=== PATIENT | female | born 1985 | race African-American/Black ===

== ENCOUNTER 2017-01-01 20:11 | Inpatient (IN) | payer SELFPAY ==
[~2017-01-01] VITALS: Ht 172.7 cm; Wt 185.5 kg
[~2017-01-01 20:11] MED LIST: APPL300T PO; ATOR20TA42 PO; FERR324T4 PO; GARL500C5 PO; LISI20 PO; METO100 PO; NIFE10 PO; SPIR25 PO
[2017-01-01 20:14] VITALS: BP 179/111; PULSE 139; RESP 32; TEMP 98.2; O2SAT 85
[2017-01-01 20:26] VITALS: RESP 28
[2017-01-01] MEDS: RESP: ALBUTEROL 2.5 MG/IPRATROPIUM 0.5 MG NEB (SCH) INH ×2 (20:27→20:28)
[2017-01-01] MEDS ORDERED: methylPREDNISolone SOD SUCC 125 MG/2 ML VIAL IVP ONE (20:30)
--- NOTE | 2017-01-01 20:30 | PD ---
HPI Chief Complaint: Respiratory Distress Time Seen by Provider: 20:30 Travel History International Travel<30 days: No Contact w/Intl Traveler<30days: No Traveled to known affect area: No History of Present Illness HPI 31-year-old female with history of asthma and hypertension presents to the emergency department with acute onset shortness of breath. Patient brought in by her and he states that patient has been out of her asthma inhaler for 2 days. Patient presents in obvious respiratory distress tachypneic and tachycardic. Patient is so tachypneic that she is unable to communicate verbally. Patient's provides a good history. Patient has no surgical history. No history of blood clots. Only cardiac history is hypertension. Patient is not on control and there is no chance of per her . Patient has had asthma attacks that are similar to this severity in the past. Patient has never been intubated for her asthma. There is no recent history of fevers, chills or illness. No recent travels. No leg swelling or pain. Patient reassessed after breathing treatments. Patient is resting comfortably in the bed at this time. She states that she is still short of breath with movement. She is on nasal cannula 2 L. She is denying any chest pain at this time. PFSH Past Medical History Cardiovascular Problems: Yes (CHF) Congestive Heart Failure: Yes Diminished Hearing: No Hypertension: Yes Immunizations Current: Yes Tetanus Vaccination: Unknown Influenza Vaccination: No ?: Unknown Social History Alcohol Use: No Tobacco Use: No Substance Use: No Allergies-Medications (Allergen,Severity, Reaction): Uncoded Allergies: SHELL FISH (Allergy, Mild, 04/22/06) Reported Meds & Prescriptions Reported Meds & Active Scripts Active Procardia (Nifedipine) 10 Mg Cap 10 Mg PO Q8HR Aldactone 25 mg (Spironolactone) 25 Mg Tab 25 Mg PO DAILY 90 Days Metoprolol Tartrate 100 Mg Tab 100 Mg PO Q12HR 90 Days Prinivil 20 mg (Lisinopril) 20 Mg Tab 40 Mg PO Q12HR 90 Days Ferrous Sulfate 325 Mg Tab 325 Mg PO BID@, Lipitor 20 Mg Tab (Atorvastatin) 20 Mg Tab 20 Mg PO DAILY Reported Apple Cider Vinegar 300 Mg Tab 450 Mg PO DAILY Garlic 500 Mg Cap 1,000 Mg PO DAILY Review of Systems Except as stated in HPI: all other systems reviewed are Neg Physical Exam Exam Limitations: Clinical Condition Narrative GENERAL: 31-year-old well-developed well-nourished obese female in obvious respiratory distress. Tachypneic and tachycardic. SKIN: Focused skin assessment cool and diaphoretic. HEAD: Atraumatic. Normocephalic. EYES: Pupils equal and round. No scleral icterus. No injection or drainage. ENT: No nasal bleeding or discharge. Mucous membranes pink and moist. NECK: Trachea midline. No JVD. CARDIOVASCULAR: Tachycardic. Regular rate and rhythm. No murmur appreciated. RESPIRATORY: Breath sounds equal bilaterally but extremely diminished at the bases. Tachypneic and accessory muscle use noted. GASTROINTESTINAL: Abdomen round, soft, non-tender, nondistended. Hepatic and splenic margins not palpable. MUSCULOSKELETAL: No obvious deformities. No clubbing. No cyanosis. No edema. NEUROLOGICAL: Awake and alert. No obvious cranial nerve deficits. Motor grossly within normal limits. Data Data Last Documented VS Vital Signs Date Time Temp Pulse Resp B/P (MAP) Pulse Ox O2 Delivery O2 Flow Rate FiO2 01/01/17 20:26 99 Aerosol Mask 01/01/17 20:26 28 01/01/17 20:14 98.2 139 Orders Orders Electrocardiogram (01/01/17 20:17) Chest, Single Ap (01/01/17 20:17) Ecg Monitoring (01/01/17 20:17) Iv Access Insert/Monitor (01/01/17 20:17) Oximetry (01/01/17 20:17) Oxygen Administration (01/01/17 20:17) Methylprednisolone So Succ Inj (Solumedr (01/01/17 20:30) Albuterol-Ipratropium Neb (Duoneb Neb) (01/01/17 20:30) Complete Blood Count With Diff (01/01/17 20:27) Basic Metabolic Panel (Bmp) (01/01/17 20:27) D-Dimer (01/01/17 20:27) Act Partial Throm Time (Ptt) (01/01/17 20:27) Prothrombin Time / Inr (Pt) (01/01/17 20:27) Ckmb (Isoenzyme) Profile (01/01/17 20:27) Troponin I (01/01/17 20:27) Urinalysis - C+S If Indicated (01/01/17 20:27) B-Type Natriuretic Peptide (01/01/17 21:31) Ct Pulmonary Angiogram (01/01/17 21:33) Potassium Chloride Eff (K-Lyte Cl Eff) (01/01/17 21:45) CKMB (01/01/17 20:30) CKMB% (01/01/17 20:30) Heparin Inj (Heparin Inj) (01/01/17 22:15) Heparin Inj (Heparin Inj) (01/02/17 04:15) Heparin Inj (Heparin Inj) (01/02/17 04:15) Heparin-D5w 25,000 U/250 Ml (Heparin-D5w (01/01/17 22:15) Cbc No Diff, Includes Plts (01/04/17 06:00) Act Partial Throm Time (Ptt) (01/02/17 05:15) Occult Blood (Hemoccult) Stool (01/01/17 22:15) Aspirin (Aspirin) (01/01/17 22:15) Labs Laboratory Tests Test 01/01/17 20:30 01/01/17 21:56 White Blood Count 11.9 TH/MM3 Red Blood Count 4.35 MIL/MM3 Hemoglobin 10.1 GM/DL Hematocrit 32.8 % Mean Corpuscular Volume 75.5 FL Mean Corpuscular Hemoglobin 23.2 PG Mean Corpuscular Hemoglobin Concent 30.8 % Red Cell Distribution Width 21.0 % Platelet Count 343 TH/MM3 Mean Platelet Volume 8.3 FL Neutrophils (%) (Auto) 76.0 % Lymphocytes (%) (Auto) 18.5 % Monocytes (%) (Auto) 3.0 % Eosinophils (%) (Auto) 1.3 % Basophils (%) (Auto) 1.2 % Neutrophils # (Auto) 9.0 TH/MM3 Lymphocytes # (Auto) 2.2 TH/MM3 Monocytes # (Auto) 0.4 TH/MM3 Eosinophils # (Auto) 0.1 TH/MM3 Basophils # (Auto) 0.1 TH/MM3 CBC Comment DIFF FINAL Differential Comment Prothrombin Time 11.7 SEC Prothromb Time International Ratio 1.1 RATIO Activated Partial Thromboplast Time 21.7 SEC D-Dimer Quantitative (PE/DVT) 3.07 MG/L FEU Blood Urea Nitrogen 16 MG/DL Creatinine 1.71 MG/DL Random Glucose 145 MG/DL Calcium Level 8.5 MG/DL Sodium Level 138 MEQ/L Potassium Level 2.8 MEQ/L Chloride Level 100 MEQ/L Carbon Dioxide Level 25.7 MEQ/L Anion Gap 12 MEQ/L Estimat Glomerular Filtration Rate 43 ML/MIN Total Creatine Kinase 319 U/L Creatine Kinase MB 1.7 NG/ML Creatine Kinase MB % 0.5 % Troponin I 0.66 NG/ML B-Type Natriuretic Peptide 575 PG/ML Urine Color LIGHT-YELLOW Urine Turbidity CLEAR Urine pH 7.0 Urine Specific Many 1.004 Urine Protein TRACE mg/dL Urine Glucose (UA) NEG mg/dL Urine Ketones NEG mg/dL Urine Occult Blood NEG Urine Nitrite NEG Urine Bilirubin NEG Urine Urobilinogen LESS THAN 2.0 MG/DL Urine Leukocyte Esterase MOD Urine WBC 2 /hpf Urine Squamous Epithelial Cells 1 /hpf Microscopic Urinalysis Comment CULT NOT INDICATED MDM Medical Decision Making Medical Screen Exam Complete: Yes Emergency Medical Condition: Yes Medical Record Reviewed: Yes Differential Diagnosis Asthma exacerbation, pulmonary embolism, ACS, COPD, pneumonia Narrative Course 31-year-old obese female presents to the emergency department in obvious respiratory distress. She is both tachypneic and tachycardic. She is unable to communicate verbally at this time due to her tachypnea. Patient's at bedside presents a good history. She has a history of asthma and hypertension. She has been out of her asthma inhaler for 2 days. The shortness of breath started earlier today and worsened throughout the day. Patient's states that she has had asthma attacks in the past that are similar in severity. She has never been intubated for her asthma. There is no recent history of travel. No recent history of fever, chills or illness. Patient is not on control and per there is no chance of . There is no leg pain or swelling. After reviewing previous provider 's documentation and other visits it is noted that the patient also has a history of congestive heart failure. EKG, CBC, BMP, d-dimer, PT INR, BNP, troponin, CK, chest x-ray ordered and pending. 125 mg IV Solu-Medrol and DuoNeb 3 ordered. EKG shows sinus tachycardia heart rate 113, CBC leukocytosis at 11.9 and hemoglobin low at 10.1, BMP shows critically low potassium at 2.8 and slightly impaired renal function but otherwise no acute abnormalities, D-DIMER elevated at 3.07, PT/INR INR within normal limits only when PT and APTT slightly elevated , TROP elevated at 0.66, CK elevated at 319, BNP elevated at 575, CXR shows mild congestive heart failure 50 mg mEq potassium chloride PO ordered after potassium resulted. CT pulmonary angiogram ordered after d-dimer resulted. Patient reassessed after breathing treatments. Patient is resting comfortably in bed. Patient states she is still short of breath with movement. She is on 2 L nasal cannula O2. Patient is denying any chest pain. [facility] paged for admission. Dr. Simpson accepted admission. Dr. Canales [employer] [facility] on-call was called and consulted regarding care of this patient. Diagnosis Primary Impression: NSTEMI (non-ST elevated myocardial infarction) Additional Impressions: Hypokalemia Elevated troponin Asthma exacerbation Admitting Information Admitting Physician Requests: Admit Adrianne Shin Jan 01, 2017 20:30
[2017-01-01 20:53] LABS: BASOPHIL # 0.1 TH/MM3 (0-0.2); BASOPHIL % 1.2 % (0.0-2.0); EOSINOPHIL # 0.1 TH/MM3 (0-0.4); EOSINOPHIL % 1.3 % (0.0-4.0); HEMATOCRIT 32.8 % (35.0-46.0); HEMO FLAGS DIFF FINAL; LYMPH % 18.5 % (9.0-44.0); LYMPHOCYTE # 2.2 TH/MM3 (1.0-4.8); MEAN CELL VOLUME 75.5 FL (80.0-100.0); MEAN CORPUSCULAR HEMOGLOBIN 23.2 PG (27.0-34.0); MEAN CORPUSCULAR HGB CONC 30.8 % (32.0-36.0); PLATELET COUNT 343 TH/MM3 (150-450); RED BLOOD COUNT 4.35 MIL/MM3 (4.00-5.30); WHITE BLOOD COUNT 11.9 TH/MM3 (4.0-11.0)
[2017-01-01 21:17] LABS: APTT (PATIENT) 21.7 SEC (24.3-30.1); INTERNATIONAL NORMALIZED RATIO 1.1 RATIO; PROTHROMBIN TIME - PATIENT 11.7 SEC (9.8-11.6)
--- NOTE | 2017-01-01 21:21 | RADRPT ---
EXAM DATE/TIME: 01/01/2017 20:48 [facility] COMPARISON: CHEST SINGLE AP, January 20, 2016, 19:02. INDICATIONS : Shortness of breath. MEDICAL HISTORY : Hypertension. Congestive heart failure. Cardiomyopathy. SURGICAL HISTORY : None. ENCOUNTER: Initial ACUITY: 4 - 6 days PAIN SCORE: 0/10 LOCATION: Bilateral chest FINDINGS: There is cardiomegaly with mild edema pattern, basilar atelectasis and small effusions. No pneumothor ax. CONCLUSION: 1. Mild congestive heart failure. Byron Canales MD on January 01, 2017 at 21:19 Board Certified Radiologist. This report was verified electronically.
[2017-01-01 21:36] LABS: BICARBONATE 25.7 MEQ/L (21.0-32.0)
[2017-01-01 21:38] LABS: POTASSIUM 2.8 MEQ/L (3.5-5.1)
[2017-01-01] MEDS ORDERED: POTASSIUM CHLORIDE 25 MEQ EFFERVESCENT TAB PO ONE (21:45)
[2017-01-01 22:04] LABS: BLOOD, URINE NEG (NEG); COMMENT (UR) CULT NOT INDICATED; CULTURE IF INDICATED CULT NOT INDICATED; GLUCOSE,URINE NEG (NEG); KETONE, URINE NEG (NEG); NITRITE,URINE NEG (NEG); SQUAMOUS EPITHELIAL CELL URINE 1 /hpf (0-5); URINE COLOR LIGHT-YELLOW (YELLW/STRAW)
[2017-01-01] MEDS ORDERED: HEPARIN SODIUM - IV 10,000 UNITS/10 ML VIAL IV ONE (22:15)
[2017-01-01] MEDS ORDERED: HEPARIN-D5W 25,000 U/250 ML 250 ML IV PRN (22:15)
[2017-01-01] MEDS ORDERED: ASPIRIN 325 MG TAB PO ONE (22:15)
[2017-01-01 22:35] LABS: CKMB 1.7 NG/ML (0.5-3.6)
--- NOTE | 2017-01-01 23:14 | HHI.HP ---
[facility] No Primary Care Physician Admission Diagnosis NSTEMI/ASTHMA EXACERBATION Diagnoses: (1) NSTEMI (non-ST elevated myocardial infarction) Diagnosis: Principal (2) CHF (congestive heart failure) Diagnosis: Principal (3) Asthma Diagnosis: Principal (4) Hypoxia Diagnosis: Principal (5) HTN (hypertension) Diagnosis: Principal (6) Hypokalemia Diagnosis: Principal (7) YOLY (acute kidney injury) Diagnosis: Principal Travel History International Travel<30 Days: No Contact w/Intl Traveler <30 Da: No Traveled to Known Affected Are: No History of Present Illness This is a 31-year-old female with a PMH of HTN, CHF (Echo 01/21/16 w/ EF 40-45%) and Asthma who presented to the ER secondary to SOB. On arrival, pt in significant distress. reports pt off inhaler x2-3 days due to financial reasons. Denies fever, chills or cough. On arrival, BP 179/111, HR 139, O2 sat 85% on RA, Afebrile. WBC 11.9. K+ 2.8. Creatinine 1.71, previously 1.32 on 01/24/16. Trop 0.66. BNP 575. CPK 319. U/a negative. D- dimer 3.07. CXR w/ mild CHF. CTA Pulm negative for PE, bilateral pulmonary infiltrates likely pulmonary edema/CHF. Review of Systems Except as stated in HPI: all other systems reviewed are Neg ROS: 14 point review of systems otherwise negative. Past Family Social History Past Medical History PMH: HTN, CHF (Echo 01/21/16 w/ EF 40-45%) and Asthma Past Surgical History PAST SURGICAL HISTORY: None Allergies: Uncoded Allergies: SHELL FISH (Allergy, Mild, 04/22/06) Family History PAST FAMILY HISTORY: Reviewed. No h/o DM or CAD Social History PAST SOCIAL HISTORY: Negative for alcohol, tobacco or drugs. Physical Exam Vital Signs Vital Signs Date Time Temp Pulse Resp B/P (MAP) Pulse Ox O2 Delivery O2 Flow Rate FiO2 01/01/17 20:26 99 Aerosol Mask 01/01/17 20:26 28 01/01/17 20:14 98.2 139 32 179/111 (089) 85 Physical Exam PE: GENERAL: Young obese black female in no acute distress. HEENT: PERRLA, EOMI. No scleral icterus or conjunctival pallor. No lid lag or facial droop. CARDIOVASCULAR: Regular rate and rhythm. No obvious murmurs to auscultation. No chest tenderness to palpation. RESPIRATORY: No obvious rhonchi or wheezing. Clear to auscultation. Breath sounds mildly diminished at bases bilaterally. GASTROINTESTINAL: Abdomen soft, non-tender, nondistended. BS normal. MUSCULOSKELETAL: Extremities without clubbing, cyanosis, or edema. No obvious deformities. NEUROLOGICAL: Awake, alert and oriented x4. No focal neurologic deficits. Moving both upper and lower extremities spontaneously. Laboratory Laboratory Tests Test 01/01/17 20:30 01/01/17 21:56 White Blood Count 11.9 Red Blood Count 4.35 Hemoglobin 10.1 Hematocrit 32.8 Mean Corpuscular Volume 75.5 Mean Corpuscular Hemoglobin 23.2 Mean Corpuscular Hemoglobin Concent 30.8 Red Cell Distribution Width 21.0 Platelet Count 343 Mean Platelet Volume 8.3 Neutrophils (%) (Auto) 76.0 Lymphocytes (%) (Auto) 18.5 Monocytes (%) (Auto) 3.0 Eosinophils (%) (Auto) 1.3 Basophils (%) (Auto) 1.2 Neutrophils # (Auto) 9.0 Lymphocytes # (Auto) 2.2 Monocytes # (Auto) 0.4 Eosinophils # (Auto) 0.1 Basophils # (Auto) 0.1 CBC Comment DIFF FINAL Differential Comment Prothrombin Time 11.7 Prothromb Time International Ratio 1.1 Activated Partial Thromboplast Time 21.7 D-Dimer Quantitative (PE/DVT) 3.07 Blood Urea Nitrogen 16 Creatinine 1.71 Random Glucose 145 Calcium Level 8.5 Sodium Level 138 Potassium Level 2.8 Chloride Level 100 Carbon Dioxide Level 25.7 Anion Gap 12 Estimat Glomerular Filtration Rate 43 Total Creatine Kinase 319 Creatine Kinase MB 1.7 Creatine Kinase MB % 0.5 Troponin I 0.66 B-Type Natriuretic Peptide 575 Urine Color LIGHT-YELLOW Urine Turbidity CLEAR Urine pH 7.0 Urine Specific Kelly 1.004 Urine Protein TRACE Urine Glucose (UA) NEG Urine Ketones NEG Urine Occult Blood NEG Urine Nitrite NEG Urine Bilirubin NEG Urine Urobilinogen LESS THAN 2.0 Urine Leukocyte Esterase MOD Urine WBC 2 Urine Squamous Epithelial Cells 1 Microscopic Urinalysis Comment CULT NOT INDICATED Result Diagram: 01/01/17202901/01/172029 Caprinjeanette VTE Risk Assessment Caprini VTE Risk Assessment: Mod/High Risk (score >= 2) Caprini Risk Assessment Model Point Value = 1 Point Value = 2 Point Value = 3 Point Value = 5 Age 41-60 Minor surgery BMI > 25 kg/m2 Swollen legs Varicose veins or History of unexplained or recurrent spontaneous Oral contraceptives or hormone replacement Sepsis (< 1 month) Serious lung disease, including pneumonia (< 1 month) Abnormal pulmonary function Acute myocardial infarction Congestive heart failure (< 1 month) History of inflammatory bowel disease Medical patient at bed rest Age 61-74 Arthroscopic surgery Major open surgery (> 45 min) Laparoscopic surgery (> 45 min) Malignancy Confined to bed (> 72 hours) Immobilizing plaster cast Central venous access Age >= 75 History of VTE Family history of VTE Factor V Leiden Prothrombin [id number] Lupus anticoagulant Anticardiolipin antibodies Elevated serum homocysteine Heparin-induced thrombocytopenia Other congenital or acquired thrombophilia Stroke (< 1 month) Elective arthroplasty Hip, pelvis, or leg fracture Acute spinal cord injury (< 1 month) Prophylaxis Regimen Total Risk Factor Score Risk Level Prophylaxis Regimen 0-1 Low Early ambulation 2 Moderate Order ONE of the following: *Sequential Compression Device (SCD) *Heparin 5000 units SQ BID 3-4 Higher Order ONE of the following medications: *Heparin 5000 units SQ TID *Enoxaparin/Lovenox 40 mg SQ daily (WT < 150 kg, CrCl > 30 mL/min) *Enoxaparin/Lovenox 30 mg SQ daily (WT < 150 kg, CrCl > 10-29 mL/min) *Enoxaparin/Lovenox 30 mg SQ BID (WT < 150 kg, CrCl > 30 mL/min) AND/OR *Sequential Compression Device (SCD) 5 or more Highest Order ONE of the following medications: *Heparin 5000 units SQ TID (Preferred with Epidurals) *Enoxaparin/Lovenox 40 mg SQ daily (WT < 150 kg, CrCl > 30 mL/min) *Enoxaparin/Lovenox 30 mg SQ daily (WT < 150 kg, CrCl > 10-29 mL/min) *Enoxaparin/Lovenox 30 mg SQ BID (WT < 150 kg, CrCl > 30 mL/min) AND *Sequential Compression Device (SCD) Assessment and Plan Problem List: (1) NSTEMI (non-ST elevated myocardial infarction) ICD Code: I21.4 - Non-ST elevation (NSTEMI) myocardial infarction Status: Acute (2) CHF (congestive heart failure) ICD Code: I50.9 - Heart failure, unspecified (3) HTN (hypertension) ICD Code: I10 - Essential (primary) hypertension (4) Hypoxia ICD Code: R09.02 - Hypoxemia (5) Asthma ICD Code: J45.909 - Unspecified asthma, uncomplicated (6) YOLY (acute kidney injury) ICD Code: N17.9 - Acute kidney failure, unspecified Status: Acute (7) Hypokalemia ICD Code: E87.6 - Hypokalemia Status: Acute Assessment and Plan A/P: 1. NSTEMI: Trop 0.66, EKG w/ no acute ischemia, h/o NSTEMI on previous admit . Dr. Canales consulted by ER physician, will eval in am. On Heparin gtt, s/ p ASA. Continue Heparin, ASA, Metoprolol and Statin. Check serial cardiac enzymes. 2. CHF: Acute on Chronic. Systolic. Echo 01/21/16 w/ EF 40-45%, BNP 575. CXR w/ mild CHF. CTA Pulm negative for PE, bilateral pulmonary infiltrates likely pulmonary edema, images reviewed by me. Lasix 40mg IV, resume home diuresis, monitor I/O. 3. Asthma: w/ Acute Exacerbation. Severe. Significant respiratory distress on arrival w/ hypoxia, O2 88% on RA, now improved after Solu-Medrol and DuoNeb. Continue w/ Solu-Medrol, Albuterol, Symbicort. 4. Hypoxia: Multifactorial-secondary to Acute Asthma, CHF and NSTEMI, now resolved. Monitor O2. 5. YOLY: Acute on Chronic. Creatinine 1.71, previously 1.32 on 01/24/16. U/a negative. Caution w/ diuresis, repeat labs in am. 6. Hypokalemia: K+ 2.8, s/p replacement in ER, will recheck and replace as needed. 7. DVT Prophylaxis: On Heparin gtt 8. Social work for d/c planning as needed. 9. Case discussed w/ ER physician at length. Physician Certification 2 Midnight Certification Type: Admission for Inpatient Services Order for Inpatient Services The services are ordered in accordance with Medicare regulations or non- Medicare payer requirements, as applicable. In the case of services not specified as inpatient-only, they are appropriately provided as inpatient services in accordance with the 2-midnight benchmark. Estimated LOS (days): 2 days is the estimated time the patient will need to remain in the hospital, assuming treatment plan goals are met and no additional complications. Post-Hospital Plan: Not yet determined Jayde Simpson MD Jan 01, 2017 23:13
[2017-01-01] MEDS ORDERED: ACETAMINOPHEN/HYDROcodone 325 MG/5 MG TAB PO PRN (23:15)
[2017-01-01] MEDS ORDERED: BISACODYL 10 MG SUPP RECTAL PRN (23:15)
[2017-01-01] MEDS ORDERED: MAGNESIUM HYDROXIDE SUSP 30 ML CUP PO PRN (23:15)
[2017-01-01] MEDS ORDERED: SODIUM CHLORIDE 0.9% FLUSH 10 ML FLUSH IV FLUSH PRN (23:15)
[2017-01-01] MEDS ORDERED: ONDANSETRON HCL 4 MG/2 ML VIAL IVP PRN (23:15)
[2017-01-01] MEDS ORDERED: MORPHINE SULFATE 4 MG/ML INJ IV PRN (23:15)
[2017-01-01] MEDS ORDERED: RESP: ALBUTEROL 2.5 MG/3 ML NEB (PRN) NEB (23:15)
[2017-01-01] MEDS ORDERED: SENNOSIDES 8.6 MG TAB PO PRN (23:15)
[2017-01-01] MEDS ORDERED: NITROGLYCERIN 2% OINT 1 GM PACKET TOPICAL PRN (23:15)
[2017-01-01] MEDS ORDERED: ACETAMINOPHEN 325 MG TAB PO PRN (23:15)
[2017-01-01] MEDS ORDERED: IOHEXOL 350 MG/ML 10 ML VIAL (for RAD DIAG) IVCONTRAST ONE (23:15)
[2017-01-01] MEDS ORDERED: LACTULOSE SYRUP 20 GM/30 ML CUP PO PRN (23:15)
--- NOTE | 2017-01-01 23:27 | RADRPT ---
EXAM DATE/TIME: 01/01/2017 22:52 [facility] COMPARISON: No previous studies available for comparison. INDICATIONS : Shortness of breath for 3 days. IV CONTRAST: 75 cc Omnipaque 350 (iohexol) IV RADIATION DOSE: 25.9 CTDIvol (mGy) MEDICAL HISTORY : Cardiovascular disease. Hypertension. Congestive heart failure. SURGICAL HISTORY : None. ENCOUNTER: Initial ACUITY: 3 days PAIN SCALE: 0/10 LOCATION: chest TECHNIQUE: Volumetric scanning of the chest was performed using a pulmonary embolism protocol MIP images were re constructed. Using automated exposure control and adjustment of the mA and/or kV according to patien t size, radiation dose was kept as low as reasonably achievable to obtain optimal diagnostic quality images. DICOM format image data is available electronically for review and comparison. Follow-up recommendations for detected pulmonary nodules are based at a minimum on nodule size and pa tient risk factors according to Fleischner Society Guidelines. FINDINGS: There is no pulmonary embolus. Left ventricular enlargement noted. No coronary artery calcification s een. Diffuse groundglass and patchy alveolar infiltrates seen of both lungs. There is a small to moderate pleural effusion on the right. There are scattered mediastinal lymph nodes that measure up to 22 mm in greatest short axis dimension . CONCLUSION: 1. No pulmonary embolus. 2. Left ventricular enlargement. 3. Bilateral pulmonary infiltrates, nonspecific but a component of pulmonary edema/CHF possible in th e proper clinical setting. 4. Nonspecific mildly enlarged mediastinal lymph nodes. Paul Hsu MD on January 01, 2017 at 23:20 Board Certified Radiologist. This report was verified electronically.
[2017-01-01] MEDS ORDERED: METO50TA PO (23:28)
[2017-01-01] MEDS ORDERED: PRIN20TA2 PO (23:28)
[2017-01-01 23:37] VITALS: BP 205/99; PULSE 91; RESP 24; O2SAT 95
[2017-01-01] MEDS: methylPREDNISolone SOD SUCC 40 MG/1 ML VIAL IV PUSH SCH (23:37)
[2017-01-01] MEDS: METOPROLOL TARTRATE 50 MG TAB PO SCH (23:37)
[2017-01-01] MEDS ORDERED: FUROSEMIDE 40 MG/4 ML VIAL IV PUSH ONE (23:45)
[2017-01-02] VITALS (18 sets, daily range): BP systolic 152–204; BP diastolic 76–110; PULSE 59–97; RESP 18–22; TEMP 97.3–99.4; O2SAT 94–97
[2017-01-02] MEDS ORDERED: hydrALAZINE HCL 20 MG/ML VIAL IV PUSH ONE ×2 (00:30→02:00)
[2017-01-02] MEDS ORDERED: METOPROLOL TARTRATE 50 MG TAB PO ONE (02:00)
[2017-01-02] MEDS ORDERED: HEPARIN SODIUM - IV 10,000 UNITS/10 ML VIAL IV PRN ×2 (04:15)
[2017-01-02] MEDS ORDERED: cloNIDine HCL 0.2 MG TAB PO ONE (04:45)
[2017-01-02] MEDS ORDERED: NIFEdipine 30 MG SUSTAINED RELEASE TAB PO ONE (04:45)
[2017-01-02] MEDS ORDERED: SODIUM CHLORIDE 0.9% FLUSH 10 ML FLUSH IV FLUSH PRN (05:30)
[2017-01-02] MEDS: methylPREDNISolone SOD SUCC 40 MG/1 ML VIAL IV PUSH SCH ×3 (05:45→13:41)
[2017-01-02] MEDS: NIFEdipine 10 MG CAP PO SCH ×2 (05:45→13:40)
--- NOTE | 2017-01-02 08:40 | HHI.PR ---
Subjective Remarks Follow up NSTEMI, asthma exacerbation. The patient states that she feels much better today. Denies chest pain or dyspnea. She is off supplemental oxygen. Objective Vitals Vital Signs Date Time Temp Pulse Resp B/P (MAP) Pulse Ox O2 Delivery O2 Flow Rate FiO2 01/02/17 08:00 97 01/02/17 07:00 78 01/02/17 07:00 97.4 78 18 152/79 (103) 96 01/02/17 06:00 77 01/02/17 05:00 76 01/02/17 04:00 76 01/02/17 03:00 99.1 78 20 204/110 (141) 95 01/02/17 03:00 81 01/02/17 02:00 80 01/02/17 01:20 99.4 86 22 193/109 (137) 97 01/02/17 00:50 95 Nasal Cannula 2.00 01/02/17 00:27 01/01/17 23:37 91 24 205/99 (134) 95 Nasal Cannula 2.00 01/01/17 20:26 99 Aerosol Mask 01/01/17 20:26 28 01/01/17 20:14 98.2 139 32 179/111 (133) 85 Result Diagram: 01/01/17202901/01/1720[address] Angiography 01/01/172132 Signed Impressions: Service Date/Time: Sunday, January 01, 2017 22:52 - CONCLUSION: 1. No pulmonary embolus. 2. Left ventricular enlargement. 3. Bilateral pulmonary infiltrates, nonspecific but a component of pulmonary edema/CHF possible in the proper clinical setting. 4. Nonspecific mildly enlarged mediastinal lymph nodes. Paul Hsu MD Chest X-Ray 01/01/172016 Signed Impressions: Service Date/Time: Sunday, January 01, 2017 20:48 - CONCLUSION: 1. Mild congestive heart failure. Byron Canales MD Objective Remarks General: Obese female in no acute distress. Heart: Regular rate and rhythm. No murmur. Lungs: Clear to auscultation bilaterally. No wheezes, rales, or rhonchi. Breathing is nonlabored. Abdomen: Soft, nontender, nondistended. Extremities: No lower extremity edema. Psych: Alert and oriented. Procedures None Urinary Catheter: No Vascular Central Line Catheter: No A/P Problem List: (1) NSTEMI (non-ST elevated myocardial infarction) ICD Code: I21.4 - Non-ST elevation (NSTEMI) myocardial infarction Status: Acute (2) CHF (congestive heart failure) ICD Code: I50.9 - Heart failure, unspecified (3) HTN (hypertension) ICD Code: I10 - Essential (primary) hypertension (4) Hypoxia ICD Code: R09.02 - Hypoxemia (5) Asthma ICD Code: J45.909 - Unspecified asthma, uncomplicated (6) YOLY (acute kidney injury) ICD Code: N17.9 - Acute kidney failure, unspecified Status: Acute (7) Hypokalemia ICD Code: E87.6 - Hypokalemia Status: Acute Assessment and Plan 1. Non-ST elevation MT: Troponin elevated at 0.66, trended down to 0.54. EKG does not show acute ischemia. Patient denies chest pain currently. Cardiology consultation is pending. Patient is on heparin drip and received aspirin. Continue beta obinna, statin. 2. Acute on chronic systolic congestive heart failure: Echocardiogram from December 2015 showed ejection fraction 40-45%. Imaging shows likely pulmonary edema. Continue diuresis. Monitor intake/output. 3. Dyspnea: Likely secondary to asthma exacerbation. CTA is negative for pulmonary embolus. Continue bronchodilators, supplemental oxygen as needed. 4. Hypertension: Blood pressure has been significantly elevated. Continue metoprolol, Procardia. Add hydralazine. 5. Acute kidney injury: Repeat labs are pending this morning. 6. Hypokalemia: Received replacement in the ER. Repeat labs are pending this morning. 7. DVT prophylaxis: Heparin drip. Rufino Rios MD Jan 02, 2017 08:40
[2017-01-02] MEDS ORDERED: PNEUMOCOCCAL POLYVALENT INJ 25 MCG/0.5 ML SYR IM ONE (09:00)
[2017-01-02] MEDS ORDERED: SPIRONOLACTONE 25 MG TAB PO SCH (09:00)
[2017-01-02] MEDS: BUDESONIDE-FORMOTEROL 160/4.5 MCG INHALER INH SCH ×2 (09:00→09:33)
[2017-01-02] MEDS ORDERED: DOCUSATE SODIUM 50 MG/SENNA 8.6 MG TAB PO SCH (09:00)
[2017-01-02] MEDS ORDERED: PRAVASTATIN SOD 40 MG TAB PO SCH (09:00)
[2017-01-02] MEDS ORDERED: ASPIRIN EC 81 MG TABEC PO SCH (09:00)
[2017-01-02] MEDS ORDERED: METOPROLOL TARTRATE 100 MG TAB PO SCH (09:00)
[2017-01-02] MEDS ORDERED: SODIUM CHLORIDE 0.9% FLUSH 10 ML FLUSH IV FLUSH SCH (09:00)
[2017-01-02] MEDS: METOPROLOL TARTRATE 50 MG TAB PO SCH (09:32)
[2017-01-02] MEDS: hydrALAZINE HCL 10 MG TAB PO SCH ×2 (09:36→13:40)
[2017-01-02] MEDS ORDERED: cloNIDine HCL 0.2 MG TAB PO PRN (11:00)
--- NOTE | 2017-01-02 11:38 | MB ---
cc: EMMANUEL SALDANA MD DATE OF CONSULTATION: 01/02/2017. REASON FOR CONSULTATION: Elevated troponin. HISTORY OF PRESENT ILLNESS: The patient is a pleasant morbidly obese 31-year-old woman who has a history of asthma and hypertensive cardiomyopathy who underwent a nuclear stress test last year for similar presentation, which was nonischemic. The patient presents with what she describes as an asthma exacerbation. She admits to not taking her medication for at least the last week due to general noncompliance but she says she did have her medication with her. Her blood pressures on admission were as high as 205/99 but have come down to generally 150 systolic. Currently she is asymptomatic and hoping to be discharged home. She has no chest pain, residual shortness breath, lightheadedness or dizziness. PAST MEDICAL HISTORY: 1. Morbid obesity. 2. Asthma. 3. Hypertensive cardiomyopathy with an ejection fraction of 40-45% by echo 01/21/2016. ALLERGIES: SHELLFISH. CURRENT MEDICATIONS: 1. Aspirin 81 milligrams daily. 2. Pravachol 40 milligrams daily. 3. Aldactone 25 milligrams daily. 4. Apresoline 10 milligrams q. 8 hours. 5. Procardia 10 milligrams q.8 h. 6. Solu-Medrol. 7. Symbicort. 8. Heparin drip. PHYSICAL EXAMINATION: VITAL SIGNS: Temperature 99.4, pulse 80, respiratory rate 22, blood pressure 152/79, satting 96%. GENERAL: A pleasant well-appearing morbidly obese -B[place] woman in no distress. NECK: No jugular venous distention. LUNGS: Clear to auscultation bilaterally. CARDIOVASCULAR: Regular rate and rhythm. No murmurs appreciated. ABDOMEN: Benign. EXTREMITIES: No edema. LABORATORY DATA: Sodium 138, potassium 2.8, chloride 100, bicarbonate 25.7, BUN 16, creatinine 1.71, glucose 145. CK-MBs are normal with slightly elevated total CK. Troponin 0.667 and 0.56. BNP is slightly elevated at 575. EKGS: EKG shows sinus tachycardia with left ventricular hypertrophy type S-T changes. IMAGING STUDIES: CTA of the chest showed no pulmonary embolism. Possible mild congestive heart failure. (The patient has already received IV Lasix). IMPRESSION: 1. Elevated troponin: The patient's mildly elevated troponin is similar to her presentation last year with another asthma exacerbation at which time she underwent an ischemic workup with nuclear stress test which showed no ischemia with the obvious limitations of body habitus. The patient is now completely asymptomatic without any shortness of breath and her blood pressures are improving. Her presentation is not consistent with acute coronary syndrome but more of an acute on chronic diastolic and systolic congestive heart failure caused by her not being on medications for the last week. 2. Noncompliance: I discussed her noncompliance at length and advised her that she will have significant morbidity and even mortality if she does not take her medications. I also counselled weight loss at great length and recommended bariatric surgery although the patient seems reluctant to do this and "wants to do it on my own". From my standpoint, if her blood pressure is reasonable and her potassium improves on her next set of labs, she could go home from a cardiac standpoint. I will be available on an as-needed basis from here. Please call with any questions. Thank you again for the opportunity to participate in this patient's care. MD KRISTEL Douglas/BALDEMAR /10:16 AM /11:25 AM
[2017-01-02 13:37] LABS: AUTOMATED NEUTROPHIL # 13.3 TH/MM3 (1.8-7.7); HEMATOCRIT 30.8 % (35.0-46.0); HEMO FLAGS DIFF FINAL; LYMPH % 6.2 % (9.0-44.0); LYMPHOCYTE # 0.9 TH/MM3 (1.0-4.8); MEAN CELL VOLUME 74.9 FL (80.0-100.0); MEAN CORPUSCULAR HEMOGLOBIN 22.9 PG (27.0-34.0); MEAN CORPUSCULAR HGB CONC 30.6 % (32.0-36.0); MONO % 1.4 % (0.0-8.0); NEUT % 92.4 % (16.0-70.0); PLATELET COUNT 307 TH/MM3 (150-450); RED BLOOD COUNT 4.12 MIL/MM3 (4.00-5.30); RED CELL DISTRIBUTION WIDTH 20.8 % (11.6-17.2); WHITE BLOOD COUNT 14.4 TH/MM3 (4.0-11.0)
--- NOTE | 2017-01-02 13:38 | EKG ---
Date Performed: 01/01/2017 Time Performed: 20:31:24 PTAGE: 31 years EKG: SINUS TACHYCARDIA POSSIBLE LEFT ATRIAL ENLARGEMENT MODERATE T-WAVE ABNORMALITY, CONSIDER LA TERAL ISCHEMIA Compared to prior tracing no significant change ABNORMAL ECG PREVIOUS TRACING : 01/20/2016 19.45 DOCTOR: Jordon Simpson Interpretating Date/Time 01/02/2017 13:38:20
[2017-01-02 13:45] LABS: APTT (PATIENT) 22.4 SEC (24.3-30.1)
[2017-01-02 14:00] LABS: ANION GAP 10 MEQ/L (5-15); AST (GOT) 32 U/L (15-37); BICARBONATE 27.2 MEQ/L (21.0-32.0); BLOOD UREA NITROGEN 18 MG/DL (7-18); CHLORIDE 101 MEQ/L (98-107); GLOMERULAR FILTRATION RATE 52 ML/MIN (>89); POTASSIUM 3.1 MEQ/L (3.5-5.1); SODIUM (NA) 138 MEQ/L (136-145)
[2017-01-02 14:02] LABS: ALT (GPT) 37 U/L (10-53); BICARBONATE 28.4 MEQ/L (21.0-32.0); POTASSIUM 3.2 MEQ/L (3.5-5.1)
[2017-01-02 14:05] LABS: ALKALINE PHOSPHATASE 82 U/L (45-117); CREATINE KINASE 341 U/L (26-192); TOTAL BILIRUBIN ADULT 0.7 MG/DL (0.2-1.0)
[2017-01-02 14:18] LABS: CKMB 2.1 NG/ML (0.5-3.6)
[2017-01-02] MEDS ORDERED: POTASSIUM CHLORIDE 10 MEQ CONTROLLED RELEASE TAB PO ONE (14:45)
[2017-01-02] MEDS ORDERED: HYDR-3798 PO (16:15)
[2017-01-02] MEDS ORDERED: ASPI-99 PO (16:15)
[2017-01-02] MEDS ORDERED: POTA8TAB PO (16:15)
[2017-01-02] MEDS ORDERED: VENTAER INH (16:15)
--- NOTE | 2017-01-02 16:16 | HHI.DCPOC ---
Discharge Care Plan Diagnosis: (1) Hypokalemia (2) YOLY (acute kidney injury) (3) Asthma (4) HTN (hypertension) (5) Hypoxia Goals to Promote Your Health * To prevent worsening of your condition and complications * To maintain your health at the optimal level Directions to Meet Your Goals Take your medications as prescribed Follow your dietary instruction Follow activity as directed Keep your appointments as scheduled Take your immunizations and boosters as scheduled If your symptoms worsen call your PCP, if no PCP go to Urgent Care Center or Emergency Room Smoking is Dangerous to Your Health. Avoid second hand smoke Call the 24-hour hour crisis hotline for domestic abuse at Rufino Rios MD Jan 02, 2017 16:16
== END 2017-01-02 17:08 | disposition home or self-care (01) | DRG 682 ==
LOC: NEPE 20:11 → NEDA 22:55 → HCIS 01-02 00:58
PROVIDERS: ADMIT Family Medicine; ATTEND Family Medicine
DX: N17.9 Acute kidney failure, unspecified (principal); I50.43 Acute on chronic combined systolic (congestive) and diastolic (congestive) heart failure; Z68.44 Body mass index [BMI] 60.0-69.9, adult; J45.901 Unspecified asthma with (acute) exacerbation; I43 Cardiomyopathy in diseases classified elsewhere; I11.0 Hypertensive heart disease with heart failure; E66.01 Morbid (severe) obesity due to excess calories; E87.6 Hypokalemia; R09.02 Hypoxemia; Z53.29 Procedure and treatment not carried out because of patient's decision for other reasons; Z91.013 Allergy to seafood; Z91.128 Patient's intentional underdosing of medication regimen for other reason
CPT/HCPCS: 71010; 71275; 80048; 80053; 81001; 82550; 82552; 83880; 84484; 84703; 85025; 85379; 85610; 85730; 93005; 94640; 94664; 96374; 96375; J0360; J1644; J1940; J2920; J2930; Q9967

== ENCOUNTER 2017-03-30 10:53 | Emergency (ER) | payer BC ==
[~2017-03-30] VITALS: Ht 180.3 cm; Wt 179.1 kg
[~2017-03-30 10:53] MED LIST changes: +ASPI1TAB56 PO; +HYDR-3798 PO; -LISI20 PO; -METO100 PO; +METO50TA PO; +POTA8TAB PO; +VENTAER INH
[2017-03-30 10:55] VITALS: BP 185/132; PULSE 86; RESP 18; TEMP 98.1; O2SAT 97
[2017-03-30] MEDS ORDERED: HYDR-3799 PO (11:26)
[2017-03-30] MEDS ORDERED: FURO40TA PO (11:26)
[2017-03-30] MEDS ORDERED: KLOR10TA PO (11:26)
[2017-03-30] MEDS ORDERED: SPIR25TA PO (11:26)
[2017-03-30 11:28] VITALS: BP 173/91; PULSE 80; RESP 20; O2SAT 97
[2017-03-30] MEDS ORDERED: FUROSEMIDE 40 MG/4 ML VIAL IV PUSH ONE (11:45)
[2017-03-30 11:59] LABS: AUTOMATED NEUTROPHIL # 6.1 TH/MM3 (1.8-7.7); BASOPHIL % 0.3 % (0.0-2.0); EOSINOPHIL % 0.6 % (0.0-4.0); HEMATOCRIT 29.8 % (35.0-46.0); HEMO FLAGS DIFF FINAL; LYMPH % 16.7 % (9.0-44.0); LYMPHOCYTE # 1.3 TH/MM3 (1.0-4.8); MEAN CELL VOLUME 72.4 FL (80.0-100.0); MEAN CORPUSCULAR HEMOGLOBIN 23.2 PG (27.0-34.0); MONO % 3.1 % (0.0-8.0); NEUT % 79.3 % (16.0-70.0); PLATELET COUNT 311 TH/MM3 (150-450); RED BLOOD COUNT 4.11 MIL/MM3 (4.00-5.30); RED CELL DISTRIBUTION WIDTH 20.6 % (11.6-17.2); WHITE BLOOD COUNT 7.7 TH/MM3 (4.0-11.0)
[2017-03-30 12:13] LABS: ALT (GPT) 30 U/L (10-53); ANION GAP 6 MEQ/L (5-15); AST (GOT) 21 U/L (15-37); BICARBONATE 26.7 MEQ/L (21.0-32.0); BLOOD UREA NITROGEN 21 MG/DL (7-18); CHLORIDE 103 MEQ/L (98-107); GLOMERULAR FILTRATION RATE 44 ML/MIN (>89); POTASSIUM 3.9 MEQ/L (3.5-5.1); SODIUM (NA) 136 MEQ/L (136-145)
[2017-03-30 12:14] LABS: ALKALINE PHOSPHATASE 75 U/L (45-117); TOTAL BILIRUBIN ADULT 0.9 MG/DL (0.2-1.0)
--- NOTE | 2017-03-30 12:52 | RADRPT ---
EXAM DATE/TIME: 03/30/2017 12:43 [facility] COMPARISON: CHEST SINGLE AP, January 01, 2017, 20:48. INDICATIONS : Shortness of breath. MEDICAL HISTORY : Hypertension. Congestive heart failure. Cardiomyopathy. SURGICAL HISTORY : None. ENCOUNTER: Initial ACUITY: 3 days PAIN SCORE: 0/10 LOCATION: Bilateral chest FINDINGS: The heart is enlarged, similar to prior examination. There is loss of delineation of the central bron chopulmonary markings, similar to prior. Both hemidiaphragms remain well delineated. Mild tortuosity descending thoracic aorta. CONCLUSION: Cardiomegaly and loss of delineation of the central bronchopulmonary markings, very similar to Septem dwain 2017, suggesting congestive failure. Alexey Jarvis MD on March 30, 2017 at 12:50 Board Certified Radiologist. This report was verified electronically.
--- NOTE | 2017-03-30 13:13 | PD ---
HPI Chief Complaint: Respiratory Symptoms Time Seen by Provider: 11:25 Travel History International Travel<30 days: No Contact w/Intl Traveler<30days: No Traveled to known affect area: No History of Present Illness HPI This is a 31-year-old female who has a history of hypertrophic cardiomyopathy presents to the emergency department with 2 days of increasing shortness of breath, worse with laying flat, constant, moderate severity with no associated chest pain. She also says she's had vomiting and loose stools for 2 days which is keeping her up at night. She denies any fevers or chills. She's had some left-sided abdominal discomfort. She denies any dysuria or hematuria. PFSH Past Medical History Cardiovascular Problems: Yes (CHF) Congestive Heart Failure: Yes Diminished Hearing: No Hypertension: Yes Immunizations Current: Yes Tetanus Vaccination: > 5 Years Influenza Vaccination: No ?: Not LMP: last month Past Surgical History Surgical History: No Previous Surgery Social History Alcohol Use: No Tobacco Use: No Substance Use: No Allergies-Medications (Allergen,Severity, Reaction): Uncoded Allergies: SHELL FISH (Allergy, Mild, 04/22/06) Reported Meds & Prescriptions Reported Meds & Active Scripts Active Ventolin Hfa 18 GM Inh (Albuterol Sulfate) 90 Mcg/Act Aer 2 Puff INH Q4-6H PRN Adult Aspirin EC Low Strength (Aspirin) 81 Mg Tabec 81 Mg PO DAILY Reported Klor-Con 10 (Potassium Chloride) 10 Meq Tab 10 Meq PO DAILY Spironolactone 25 Mg Tab 25 Mg PO DAILY Furosemide 40 Mg Tab 40 Mg PO DAILY Hydralazine HCl 25 Mg Tablet 5 Mg PO TID Metoprolol Tartrate 50 Mg Tab 50 Mg PO BID Review of Systems Except as stated in HPI: all other systems reviewed are Neg Physical Exam Narrative GENERAL:Well appearing, no acute distress SKIN: Focused skin assessment warm and dry. HEAD: Atraumatic. Normocephalic. EYES: Pupils equal and round. No injection or drainage. ENT: Moist mucous membranes NECK: Trachea midline. CARDIOVASCULAR: Regular rate and rhythm. No murmur appreciated. 2+ pitting edema in the bilateral lower extremities. RESPIRATORY: Bilateral Rales in the lung bases, no tachypnea or increased work of breathing GASTROINTESTINAL: Abdomen soft, mildly tender to palpation in the left upper quadrant with no rebound or guarding. MUSCULOSKELETAL: No obvious deformities. NEUROLOGICAL: Awake and alert. No obvious cranial nerve deficits. Moving all extremities. PSYCHIATRIC: Appropriate mood and affect; insight and judgment normal. Data Data Last Documented VS Vital Signs Date Time Temp Pulse Resp B/P (MAP) Pulse Ox O2 Delivery O2 Flow Rate FiO2 03/30/17 11:28 80 20 173/91 (118) 97 Room Air 03/30/17 10:55 98.1 Orders Orders Complete Blood Count With Diff (03/30/17 11:32) Comprehensive Metabolic Panel (03/30/17 11:32) ^ Insert Iv (03/30/17 11:32) Lipase (03/30/17 11:32) Urinalysis - C+S If Indicated (03/30/17 11:32) Chest, Single Ap (03/30/17 ) B-Type Natriuretic Peptide (03/30/17 11:32) Furosemide Inj (Lasix Inj) (03/30/17 11:45) Ondansetron Inj (Zofran Inj) (03/30/17 13:15) Ed Urine Pregnancytest Poc (03/30/17 13:10) Labs Laboratory Tests Test 03/30/17 11:45 03/30/17 12:50 White Blood Count 7.7 TH/MM3 Red Blood Count 4.11 MIL/MM3 Hemoglobin 9.5 GM/DL Hematocrit 29.8 % Mean Corpuscular Volume 72.4 FL Mean Corpuscular Hemoglobin 23.2 PG Mean Corpuscular Hemoglobin Concent 32.0 % Red Cell Distribution Width 20.6 % Platelet Count 311 TH/MM3 Mean Platelet Volume 8.4 FL Neutrophils (%) (Auto) 79.3 % Lymphocytes (%) (Auto) 16.7 % Monocytes (%) (Auto) 3.1 % Eosinophils (%) (Auto) 0.6 % Basophils (%) (Auto) 0.3 % Neutrophils # (Auto) 6.1 TH/MM3 Lymphocytes # (Auto) 1.3 TH/MM3 Monocytes # (Auto) 0.2 TH/MM3 Eosinophils # (Auto) 0.0 TH/MM3 Basophils # (Auto) 0.0 TH/MM3 CBC Comment DIFF FINAL Differential Comment Blood Urea Nitrogen 21 MG/DL Creatinine 1.67 MG/DL Random Glucose 109 MG/DL Total Protein 7.7 GM/DL Albumin 3.6 GM/DL Calcium Level 8.8 MG/DL Alkaline Phosphatase 75 U/L Aspartate Amino Transf (AST/SGOT) 21 U/L Alanine Aminotransferase (ALT/SGPT) 30 U/L Total Bilirubin 0.9 MG/DL Sodium Level 136 MEQ/L Potassium Level 3.9 MEQ/L Chloride Level 103 MEQ/L Carbon Dioxide Level 26.7 MEQ/L Anion Gap 6 MEQ/L Estimat Glomerular Filtration Rate 44 ML/MIN B-Type Natriuretic Peptide 956 PG/ML Lipase 121 U/L Urine Color STRAW Urine Turbidity CLEAR Urine pH 7.0 Urine Specific [place] 1.004 Urine Protein NEG mg/dL Urine Glucose (UA) NEG mg/dL Urine Ketones NEG mg/dL Urine Occult Blood NEG Urine Nitrite NEG Urine Bilirubin NEG Urine Urobilinogen LESS THAN 2.0 MG/DL Urine Leukocyte Esterase NEG Urine WBC 2 /hpf Urine Squamous Epithelial Cells 4 /hpf Urine Hyaline Casts 3 /lpf Urine Mucus FEW /lpf Microscopic Urinalysis Comment CULT NOT INDICATED MDM Medical Decision Making Medical Screen Exam Complete: Yes Emergency Medical Condition: Yes Interpretation(s) afebrile, no tachycardia, hypertension no leukocytosis renal insufficiency similar to prior bnp 956 urinalysis: no infection negative Differential Diagnosis Gastroenteritis, , pancreatitis, dehydration, congestive heart failure , pneumonia Narrative Course This is a 31-year-old female who presents to the emergency department with nausea, vomiting, diarrhea and shortness of breath. She has a history hypertrophic cardiomyopathy. Her cardiomyopathy is thought not to be ischemic. She's had increasing lower extremity swelling as well. Patient was placed in a monitor and an IV was established. Labs are obtained which were all reassuring with the exception of an elevated BNP. She has some evidence of congestive heart failure on chest x-ray. She was given Zofran in the emergency department and her symptoms improved. I suspect she has gastroenteritis and she slightly volume overloaded. She is given a dose of Lasix in the emergency department. 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 I advised her to double her Lasix for 3 days and then follow-up with Dr. Spence. In the past she has had an elevated troponin which has been attributed to her cardiomyopathy and not ischemic disease. I deferred testing troponin because I think it would not contribute to an explanation of her symptoms. Diagnosis Primary Impression: CHF (congestive heart failure) Qualified Codes: I50.9 - Heart failure, unspecified Additional Impression: Gastroenteritis Patient Instructions: General Instructions Additional Instructions: Take 40 mg of furosemide twice daily for 3 days and then follow-up with Dr. Spence for a checkup. If you develop severe chest pain, shortness of breath, sweating, lightheadedness , dizziness or difficulty breathing return to the emergency department immediately. Med/Other Pt SpecificInfo: Prescription(s) given Scripts Ondansetron Odt (Zofran Odt) 4 Mg Tab 4 MG SL Q6HR Y for Nausea/Vomiting, #15 TAB 0 Refills Prov: Breana Flores MD 03/30/17 Disposition: 01 DISCHARGE HOME Condition: Stable Breana Flores MD Mar 30, 2017 13:13
[2017-03-30] MEDS ORDERED: ONDANSETRON HCL 4 MG/2 ML VIAL IV PUSH ONE (13:15)
[2017-03-30 13:23] LABS: BLOOD, URINE NEG (NEG); COMMENT (UR) CULT NOT INDICATED; CULTURE IF INDICATED CULT NOT INDICATED; GLUCOSE,URINE NEG (NEG); HYALINE CAST, URINE 3 /lpf (RARE); KETONE, URINE NEG (NEG); MUCUS URINE FEW /lpf (OCC); NITRITE,URINE NEG (NEG); SQUAMOUS EPITHELIAL CELL URINE 4 /hpf (0-5)
[2017-03-30 13:25] LABS: URINE COLOR STRAW (YELLW/STRAW)
[2017-03-30] MEDS ORDERED: ZOFR4TAB3 SL (13:44)
[2017-03-30 13:49] VITALS: BP 159/80
== END 2017-03-30 13:55 | disposition home or self-care (01) ==
LOC: NEPE 10:53
DX: K52.9 Noninfective gastroenteritis and colitis, unspecified (principal); I11.0 Hypertensive heart disease with heart failure; I50.9 Heart failure, unspecified; I51.7 Cardiomegaly; Z79.82 Long term (current) use of aspirin; Z79.899 Other long term (current) drug therapy
CPT/HCPCS: 71010; 80053; 81001; 83690; 83880; 84703; 85025; 96374; 96375; 99285; J1940; J2405

== ENCOUNTER 2017-04-05 09:25 | Inpatient (IN) | payer BC ==
[2017-04-05] VITALS (16 sets, daily range): BP systolic 165–227; BP diastolic 80–124; PULSE 91–104; RESP 18–42; TEMP 97.7–100.2; O2SAT 94–100
[~2017-04-05] VITALS: Ht 180.3 cm; Wt 176.7 kg
[~2017-04-05 09:25] MED LIST changes: -APPL300T PO; -ATOR20TA42 PO; -FERR324T4 PO; +FURO40TA PO; -GARL500C5 PO; -HYDR-3798 PO; +HYDR-3799 PO; +KLOR10TA PO; -NIFE10 PO; -POTA8TAB PO; -SPIR25 PO; +SPIR25TA PO; +ZOFR4TAB3 SL
--- NOTE | 2017-04-05 09:44 | PD ---
HPI Chief Complaint: Cold / Flu Symptoms Time Seen by Provider: 09:38 Travel History International Travel<30 days: No Contact w/Intl Traveler<30days: No Traveled to known affect area: No History of Present Illness HPI 31-year-old Afro-Vietnamese female presents to the emergency Department with 2 day history of flulike symptoms including fever, vomiting, diarrhea, cough, fever and chills, bodyaches, and increased wheezing. Has history of hypertension and asthma. Patient states she did not take her hypertensive medicines this morning as she was vomiting. Patient has an inhaler at home, but no nebulizer. She states she was unable to sleep well last night due to shortness of breath and her other symptoms. She is allergic to shellfish. [facility] Past Medical History Cardiovascular Problems: Yes Congestive Heart Failure: Yes Diminished Hearing: No Hypertension: Yes Immunizations Current: Yes ?: Not Social History Alcohol Use: No Tobacco Use: No Substance Use: No Allergies-Medications (Allergen,Severity, Reaction): Uncoded Allergies: SHELL FISH (Allergy, Mild, 04/22/06) Reported Meds & Prescriptions Reported Meds & Active Scripts Active Ventolin Hfa 18 GM Inh (Albuterol Sulfate) 90 Mcg/Act Aer 2 Puff INH Q4-6H PRN Adult Aspirin EC Low Strength (Aspirin) 81 Mg Tabec 81 Mg PO DAILY Reported Klor-Con 10 (Potassium Chloride) 10 Meq Tab 10 Meq PO DAILY Spironolactone 25 Mg Tab 25 Mg PO DAILY Hydralazine HCl 25 Mg Tablet 5 Mg PO TID Metoprolol Tartrate 50 Mg Tab 50 Mg PO BID Review of Systems Except as stated in HPI: all other systems reviewed are Neg General / Constitutional: Positive: Fever, Chills Eyes: No: Visual changes HENT: Positive: Headaches, Sore Throat, Rhinitis, Rhinorrhea, Congestion, No: Nosebleed, Neck Stiffness, Neck Pain, Dental Difficulties, Earache Cardiovascular: No: Chest Pain or Discomfort Respiratory: Positive: Cough, Shortness of Breath, Wheezing Gastrointestinal: Positive: Nausea, Vomiting, Diarrhea, Abdominal Pain Genitourinary: No: Urgency (generalized.), Frequency, Dysuria Musculoskeletal: No: Pain Skin: No Rash Neurologic: No: Weakness Psychiatric: No: Depression Endocrine: No: Polydipsia Hematologic/Lymphatic: No: Easy Bruising Physical Exam Narrative GENERAL: Patient appears ill but not septic. SKIN: Warm and dry. Mild pallor. Mild decreased turgor. HEAD: Atraumatic. Normocephalic. EYES: Pupils equal and round. No scleral icterus. No injection or drainage. ENT: No nasal bleeding or discharge. Mucous membranes pink and moist. TMs are dull bilaterally. Posterior pharynx appears unremarkable without significant erythema or postnasal drip. NECK: Trachea midline. Supple and nontender. CARDIOVASCULAR: Tachycardic rate and normal rhythm. RESPIRATORY: No accessory muscle use. Moderate diffuse wheezes to auscultation. Mild rales or rhonchi. Breath sounds equal bilaterally. GASTROINTESTINAL: Abdomen soft, non-tender, nondistended. Hepatic and splenic margins not palpable. MUSCULOSKELETAL: Extremities without clubbing, cyanosis, mild bilateral pedal edema. No obvious deformities. NEUROLOGICAL: Awake and alert. No obvious cranial nerve deficits. Motor grossly within normal limits. Five out of 5 muscle strength in the arms and legs. Normal speech. PSYCHIATRIC: Appropriate mood and affect; insight and judgment normal. Data Data Last Documented VS Vital Signs Date Time Temp Pulse Resp B/P (MAP) Pulse Ox O2 Delivery O2 Flow Rate FiO2 04/05/17 12:46 100 18 200/96 (130) 96 Room Air 04/05/17 11:56 98.2 Orders Orders Complete Blood Count With Diff (04/05/17 09:44) Comprehensive Metabolic Panel (04/05/17 09:44) Act Partial Throm Time (Ptt) (04/05/17 09:44) Prothrombin Time / Inr (Pt) (04/05/17 09:44) Urinalysis - C+S If Indicated (04/05/17:44) Influenzae A/B Antigen (04/05/17 09:44) Iv Access Insert/Monitor (04/05/17:44) Ecg Monitoring (04/05/17:44) Oximetry (04/05/17:44) Oxygen Administration (04/05/17:44) Chest, Single Ap (04/05/17 09:44) Sodium Chloride 0.9% Flush (Ns Flush) (04/05/17 09:45) Methylprednisolone So Succ Inj (Solumedr (04/05/17 09:45) Albuterol-Ipratropium Neb (Duoneb Neb) (04/05/17 09:45) Abdomen, Flat & Upright (04/05/17 ) Morphine Inj (Morphine Inj) (04/05/17 09:45) Ondansetron Inj (Zofran Inj) (04/05/17 09:45) Sodium Chlor 0.9% 1000 Ml Inj (Ns 1000 M (04/05/17 09:44) Sodium Chloride 0.9% Flush (Ns Flush) (04/05/17 09:45) Ed Urine Pregnancytest Poc (04/05/17 09:44) Hydralazine Inj (Apresoline Inj) (04/05/17 09:45) Electrocardiogram (04/05/17 11:10) B-Type Natriuretic Peptide (04/05/17 11:10) Ckmb (Isoenzyme) Profile (04/05/17 11:10) Troponin I (04/05/17 11:10) Aspirin Chew (Aspirin Chew) (04/05/17 11:15) Sodium Chloride 0.9% Flush (Ns Flush) (04/05/17 11:15) Metoprolol Tartrate Inj (Lopressor Inj) (04/05/17 11:15) Blood Culture (04/05/17 11:16) Lactic Acid Sepsis Protocol (04/05/17 11:16) Ct Abd/Pel W/O Iv Contrast (04/05/17 11:23) Urine Culture (04/05/17 10:00) CKMB (04/05/17 10:00) CKMB% (04/05/17 10:00) Ceftriaxone Inj (Rocephin Inj) (04/05/17 12:00) Azithromycin (Zithromax) (04/05/17 12:00) Vital Signs (Adult) Q15MX4,Q4H (04/05/17 12:59) Scientific Manager / Telemetry PANCHO.Q8H (04/05/17 12:59) Cardiac Rhythm PANCHO.Q8H (04/05/17 12:59) Notify Dr: Other (04/05/17 12:59) Diltiazem Inj (Cardizem Inj) (04/05/17 13:00) Labs Laboratory Tests Test 04/05/17 10:00 04/05/17 11:40 04/05/17 11:56 White Blood Count 5.6 TH/MM3 Red Blood Count 4.25 MIL/MM3 Hemoglobin 9.6 GM/DL Hematocrit 30.5 % Mean Corpuscular Volume 71.7 FL Mean Corpuscular Hemoglobin 22.6 PG Mean Corpuscular Hemoglobin Concent 31.5 % Red Cell Distribution Width 21.0 % Platelet Count 281 TH/MM3 Mean Platelet Volume 8.7 FL Neutrophils (%) (Auto) 76.7 % Lymphocytes (%) (Auto) 15.3 % Monocytes (%) (Auto) 6.3 % Eosinophils (%) (Auto) 1.1 % Basophils (%) (Auto) 0.6 % Neutrophils # (Auto) 4.3 TH/MM3 Lymphocytes # (Auto) 0.9 TH/MM3 Monocytes # (Auto) 0.4 TH/MM3 Eosinophils # (Auto) 0.1 TH/MM3 Basophils # (Auto) 0.0 TH/MM3 CBC Comment DIFF FINAL Differential Comment Prothrombin Time 12.1 SEC Prothromb Time International Ratio 1.2 RATIO Activated Partial Thromboplast Time 24.5 SEC Urine Color YELLOW Urine Turbidity HAZY Urine pH 6.5 Urine Specific [place] 1.025 Urine Protein 100 mg/dL Urine Glucose (UA) NEG mg/dL Urine Ketones NEG mg/dL Urine Occult Blood TRACE Urine Nitrite NEG Urine Bilirubin NEG Urine Urobilinogen 2.0 MG/DL Urine Leukocyte Esterase SMALL Urine RBC 1 /hpf Urine WBC 1 /hpf Urine Squamous Epithelial Cells 24 /hpf Urine Amorphous Sediment RARE Urine Bacteria MOD /hpf Urine Mucus FEW /lpf Microscopic Urinalysis Comment CULTURE INDICATED Blood Urea Nitrogen 16 MG/DL Creatinine 1.56 MG/DL Random Glucose 96 MG/DL Total Protein 8.0 GM/DL Albumin 3.6 GM/DL Calcium Level 8.5 MG/DL Alkaline Phosphatase 62 U/L Aspartate Amino Transf (AST/SGOT) 51 U/L Alanine Aminotransferase (ALT/SGPT) 39 U/L Total Bilirubin 0.9 MG/DL Sodium Level 138 MEQ/L Potassium Level 3.5 MEQ/L Chloride Level 103 MEQ/L Carbon Dioxide Level 26.7 MEQ/L Anion Gap 8 MEQ/L Estimat Glomerular Filtration Rate 47 ML/MIN Total Creatine Kinase 2211 U/L Creatine Kinase MB 2.0 NG/ML Creatine Kinase MB % 0.1 % Troponin I 0.73 NG/ML Lactic Acid Level 1.1 mmol/L B-Type Natriuretic Peptide 764 PG/ML MDM Medical Decision Making Medical Screen Exam Complete: Yes Emergency Medical Condition: Yes Medical Record Reviewed: Yes Differential Diagnosis Influenza. Nausea and vomiting. Wheezing. Asthma with acute exacerbation. Narrative Course Ill but not septic. Patient is febrile, hypertensive, and tachycardic in triage. Labs ordered including CBC, CMP, PT PTT and INR. Urinalysis. Influenza. IV access is obtained, and the patient is given 125 mg Solu-Medrol, 4 mg morphine, and 4 mg Zofran IV. Patient is given 20 mg hydralazine IV. Chest x-ray is ordered as well as abdominal flat and upright. Patient is given DuoNeb 3. 1115 hrs., the patient continues to be hypertensive and tachycardic. Patient took her regular dose of spironolactone. Chest x-ray is read as negative for acute process by radiology. Abdominal series is read as negative for acute process by radiology. Cardiac enzymes, proBNP, lactic acid and blood cultures are ordered. Patient is given Lopressor 5 mg 3 per protocol. EKG is ordered. Patient is discussed with Dr. Munoz who sees the patient as well. CBC is relatively unremarkable except for some microcytic anemia which is typical for her. Coag show a PT of 12.1, INR 1.2, APTT is 24.5 Chemistries are unremarkable except for creatinine 1.56 which is actually typical for this patient. GFR is estimated at 47. Troponin is elevated at 0.73. With a total creatinine kinase of 2211. EKG shows sinus tachycardia with nonspecific ST changes. This is evaluated with Dr. Munoz. Patient is given 324 mg aspirin by mouth. Urinalysis is suggestive of urinary tract infection. Urine culture is sent. Patient is given Rocephin 1000 mg IV as well as 500 mg azithromycin by mouth. Rapid influenza is negative. CK-MB are normal. ProBNP is 764. Lactic acid is normal at 1.1. 1300 hrs., the patient remains hypertensive and tachycardic. Discussed with Dr. Munoz who recommends diltiazem drip at this time. The hospitalist is called for admission. Patient was discussed with Dr. Melendez, and will be admitted to the ICU. Diagnosis Primary Impression: Elevated troponin Additional Impressions: Hypertensive urgency Asthma Qualified Codes: J45.901 - Unspecified asthma with (acute) exacerbation Urinary tract infection Qualified Codes: N30.00 - Acute cystitis without hematuria Febrile illness, acute Admitting Information Admitting Physician Requests: Admit Condition: Stable Nakul Victoria Apr 05, 2017 09:44
[2017-04-05] MEDS ORDERED: MORPHINE SULFATE 4 MG/ML INJ IV PUSH ONE (09:45)
[2017-04-05] MEDS ORDERED: methylPREDNISolone SOD SUCC 125 MG/2 ML VIAL IV PUSH ONE (09:45)
[2017-04-05] MEDS ORDERED: SODIUM CHLORIDE 0.9% FLUSH 10 ML FLUSH IV FLUSH PRN (09:45)
[2017-04-05] MEDS ORDERED: ONDANSETRON HCL 4 MG/2 ML VIAL IVP ONE (09:45)
[2017-04-05] MEDS ORDERED: SODIUM CHLORIDE 0.9% FLUSH 10 ML FLUSH IVF PRN ×2 (09:45→11:15)
[2017-04-05] MEDS ORDERED: hydrALAZINE HCL 20 MG/ML VIAL IV PUSH ONE (09:45)
[2017-04-05 10:15] LABS: AUTOMATED NEUTROPHIL # 4.3 TH/MM3 (1.8-7.7); BASOPHIL % 0.6 % (0.0-2.0); EOSINOPHIL # 0.1 TH/MM3 (0-0.4); EOSINOPHIL % 1.1 % (0.0-4.0); HEMATOCRIT 30.5 % (35.0-46.0); HEMO FLAGS DIFF FINAL; LYMPH % 15.3 % (9.0-44.0); LYMPHOCYTE # 0.9 TH/MM3 (1.0-4.8); MEAN CELL VOLUME 71.7 FL (80.0-100.0); MEAN CORPUSCULAR HEMOGLOBIN 22.6 PG (27.0-34.0); MEAN CORPUSCULAR HGB CONC 31.5 % (32.0-36.0); MONO % 6.3 % (0.0-8.0); NEUT % 76.7 % (16.0-70.0); PLATELET COUNT 281 TH/MM3 (150-450); RED BLOOD COUNT 4.25 MIL/MM3 (4.00-5.30); WHITE BLOOD COUNT 5.6 TH/MM3 (4.0-11.0)
[2017-04-05 10:24] LABS: APTT (PATIENT) 24.5 SEC (24.3-30.1); INTERNATIONAL NORMALIZED RATIO 1.2 RATIO; PROTHROMBIN TIME - PATIENT 12.1 SEC (9.8-11.6)
[2017-04-05] MEDS: SODIUM CHLOR 0.9% 1000 ML INJ 1,000 ML IV SCH ×2 (10:33→10:38)
--- NOTE | 2017-04-05 10:36 | RADRPT ---
EXAM DATE/TIME: 04/05/2017 10:08 [facility] COMPARISON: CHEST SINGLE AP, March 30, 2017, 12:43. INDICATIONS : Chest pain, shortness of breath, nausea, vomiting, diarrhea, abdominal pain, fever. MEDICAL HISTORY : Hypertension. Congestive heart failure. SURGICAL HISTORY : None. ENCOUNTER: Initial ACUITY: 3 days PAIN SCORE: 10/10 LOCATION: Bilateral upper quadrant FINDINGS: A single view of the chest demonstrates heart size is prominent but the lungs are clear. No effusions . Osseous structures are intact. CONCLUSION: 1. Compensated cardiomegaly. 2. Lungs are clear. Jacob Zepeda MD on April 05, 2017 at 10:32 Board Certified Radiologist. This report was verified electronically.
--- NOTE | 2017-04-05 10:37 | RADRPT ---
EXAM DATE/TIME: 04/05/2017 10:11 [facility] COMPARISON: No previous studies available for comparison. INDICATIONS : Chest pain, shortness of breath, nausea, vomiting, diarrhea, abdominal pain, fever. MEDICAL HISTORY : Hypertension. Congestive heart failure. SURGICAL HISTORY : None. ENCOUNTER: Initial ACUITY: 3 days PAIN SCORE: 10/10 LOCATION: Bilateral upper chest FINDINGS: Supine and upright views of the abdomen were performed. The abdominal bowel gas pattern is normal. No air fluid levels are seen. No abnormal masses, calcifications, or organomegaly is seen. The visu alized lower lungs are clear. No evidence of free intraperitoneal gas. The osseous structures are u nremarkable. CONCLUSION: Radiographically benign abdomen. Jacob Zepeda MD on April 05, 2017 at 10:34 Board Certified Radiologist. This report was verified electronically.
[2017-04-05 10:40] LABS: ALT (GPT) 39 U/L (10-53); ANION GAP 8 MEQ/L (5-15); AST (GOT) 51 U/L (15-37); BICARBONATE 26.7 MEQ/L (21.0-32.0); BLOOD UREA NITROGEN 16 MG/DL (7-18); CHLORIDE 103 MEQ/L (98-107); GLOMERULAR FILTRATION RATE 47 ML/MIN (>89); POTASSIUM 3.5 MEQ/L (3.5-5.1); SODIUM (NA) 138 MEQ/L (136-145)
[2017-04-05] MEDS: RESP: ALBUTEROL 2.5 MG/IPRATROPIUM 0.5 MG NEB (SCH) INH (10:40)
[2017-04-05 10:42] LABS: ALKALINE PHOSPHATASE 62 U/L (45-117); TOTAL BILIRUBIN ADULT 0.9 MG/DL (0.2-1.0)
[2017-04-05] MEDS ORDERED: ASPIRIN 81 MG CHEW TAB PO ONE (11:15)
[2017-04-05 11:26] LABS: BACTERIA, URINE MOD /hpf; BLOOD, URINE TRACE (NEG); COMMENT (UR) CULTURE INDICATED; CULTURE IF INDICATED CULTURE INDICATED; GLUCOSE,URINE NEG (NEG); KETONE, URINE NEG (NEG); MUCUS URINE FEW /lpf (OCC); NITRITE,URINE NEG (NEG); PH, URINE 6.5 (5.0-8.5); SQUAMOUS EPITHELIAL CELL URINE 24 /hpf (0-5); URINE COLOR YELLOW (YELLW/STRAW)
[2017-04-05] MEDS: METOPROLOL TARTRATE 5 MG/5 ML VIAL IVS SCH ×3 (11:42→12:19)
[2017-04-05] MEDS ORDERED: cefTRIAXone INJ 1,000 MG in SODIUM CHLORIDE 0.9% INJ 100 ML IV ONE (12:00)
[2017-04-05] MEDS ORDERED: AZITHROMYCIN 250 MG TAB PO ONE (12:00)
[2017-04-05] MEDS: DILTIAZEM INJ 125 MG in SODIUM CHLORIDE 0.9% INJ 100 ML IV PRN (13:45)
--- NOTE | 2017-04-05 13:48 | RADRPT ---
EXAM DATE/TIME: 04/05/2017 13:12 [place] COMPARISON: No previous studies available for comparison. INDICATIONS : Nausea, vomtiting, and diarrhea for four days. ORAL CONTRAST: No oral contrast ingested. RADIATION DOSE: 22.71 CTDIvol (mGy) MEDICAL HISTORY : Cardiovascular disease. Hypertension. SURGICAL HISTORY : None. ENCOUNTER: Initial ACUITY: 1 day PAIN SCALE: 5/10 LOCATION: abdomen TECHNIQUE: Volumetric scanning of the abdomen and pelvis was performed. Using automated exposure control and ad justment of the mA and/or kV according to patient size, radiation dose was kept as low as reasonably achievable to obtain optimal diagnostic quality images. DICOM format image data is available electro nically for review and comparison. FINDINGS: LOWER LUNGS: The visualized lower lungs are clear. The heart is moderately to markedly enlarged. LIVER: Homogeneous density without lesion. There is no dilation of the biliary tree. No calcified gallston es. SPLEEN: Normal size without lesion. PANCREAS: Within normal limits. KIDNEYS: Normal in size and shape. There is no mass, stone, or hydronephrosis. ADRENAL GLANDS: Within normal limits. VASCULAR: There is no aortic aneurysm. BOWEL/MESENTERY: The stomach, small bowel, and colon demonstrate no acute abnormality. There is no free intraperitone al air or fluid. ABDOMINAL WALL: Fat filled umbilical hernia is noted. RETROPERITONEUM: There is no lymphadenopathy. BLADDER: No wall thickening or mass. REPRODUCTIVE: Within normal limits. INGUINAL: There is no lymphadenopathy or hernia. MUSCULOSKELETAL: Within normal limits for patient age. CONCLUSION: 1. No acute process. 2. Umbilical hernia. 3. Cardiomegaly. Kenji Deleon MD on April 05, 2017 at 13:44 Board Certified Radiologist. This report was verified electronically.
--- NOTE | 2017-04-05 14:43 | HHI.HP ---
[facility] Physician Selvin Spence, Admission Diagnosis hypertensive crisis/elevated troponin/urinary tract infection/asthma Diagnoses: Chief Complaint: Flulike symptoms Travel History International Travel<30 Days: No Contact w/Intl Traveler <30 Da: No Traveled to Known Affected Are: No History of Present Illness 31 years old female who has a history of multiple admission to the hospital due to COPD and cardiomyopathy presented to the ED this time with a flulike symptoms, congestion, cough, fever and generalized body aching, nausea vomiting and diarrhea and increased wheezing. In ED she was found to have a blood pressure of 224/117, patient was given dose of Solu-Medrol and it nebulizer. She also was found to have increased troponin 0.7 which is slightly above her usual level 0.5-0.6. Chest x-ray was negative. Patient was given morphine sulfate. Currently she denied chest pain headache lightheaded, she is short of breath with wheezing. No dysuria Review of Systems All systems reviewed and was positive for what is mentioned in history of present illness otherwise negative Past Family Social History Past Medical History PMH: HTN, CHF (Echo 01/21/16 w/ EF 40-45%) and Asthma Allergies: Uncoded Allergies: SHELL FISH (Allergy, Mild, 04/22/06) Family History Review with the patient,not aware of significant medical history runs in his family Social History Denied tobacco alcohol or illicit drug abuse Physical Exam Vital Signs Vital Signs Date Time Temp Pulse Resp B/P (MAP) Pulse Ox O2 Delivery O2 Flow Rate FiO2 04/05/17 13:48 96 18 191/108 (135) 94 Room Air 04/05/17 13:45 96 191/108 04/05/17 12:46 100 18 200/96 (130) 96 Room Air 04/05/17 12:19 100 18 212/100 (137) 96 Room Air 04/05/17 11:56 98.2 101 18 198/109 (138) 96 Room Air 04/05/17 10:03 98 Room Air 04/05/17 09:27 100.2 104 18 227/124 (158) 96 Physical Exam GENERAL: This is a well-nourished, well-developed patient, in no apparent distress. SKIN: No rashes, warm and dry HEAD: Atraumatic. Normocephalic. EYES: Pupils equal round and reactive. Extraocular motions intact. No scleral icterus. ENT: Nose without bleeding, or drainage, Airway patent. NECK: Trachea midline. Supple CARDIOVASCULAR: Regular rate and rhythm without murmurs, gallops, or rubs. RESPIRATORY: Diffuse wheezing bilaterally GASTROINTESTINAL: Abdomen soft, non-tender, nondistended. Positive bowel sounds MUSCULOSKELETAL: Extremities without clubbing, cyanosis, or edema. Pedal pulses appreciated NEUROLOGICAL: Awake and alert. Moves all extremity. Normal speech.no focal neurological deficit Laboratory Laboratory Tests Test 04/05/17 10:00 04/05/17 11:40 04/05/17 11:56 White Blood Count 5.6 Red Blood Count 4.25 Hemoglobin 9.6 Hematocrit 30.5 Mean Corpuscular Volume 71.7 Mean Corpuscular Hemoglobin 22.6 Mean Corpuscular Hemoglobin Concent 31.5 Red Cell Distribution Width 21.0 Platelet Count 281 Mean Platelet Volume 8.7 Neutrophils (%) (Auto) 76.7 Lymphocytes (%) (Auto) 15.3 Monocytes (%) (Auto) 6.3 Eosinophils (%) (Auto) 1.1 Basophils (%) (Auto) 0.6 Neutrophils # (Auto) 4.3 Lymphocytes # (Auto) 0.9 Monocytes # (Auto) 0.4 Eosinophils # (Auto) 0.1 Basophils # (Auto) 0.0 CBC Comment DIFF FINAL Differential Comment Prothrombin Time 12.1 Prothromb Time International Ratio 1.2 Activated Partial Thromboplast Time 24.5 Urine Color YELLOW Urine Turbidity HAZY Urine pH 6.5 Urine Specific Gilbert 1.025 Urine Protein 100 Urine Glucose (UA) NEG Urine Ketones NEG Urine Occult Blood TRACE Urine Nitrite NEG Urine Bilirubin NEG Urine Urobilinogen 2.0 Urine Leukocyte Esterase SMALL Urine RBC 1 Urine WBC 1 Urine Squamous Epithelial Cells 24 Urine Amorphous Sediment RARE Urine Bacteria MOD Urine Mucus FEW Microscopic Urinalysis Comment CULTURE INDICATED Blood Urea Nitrogen 16 Creatinine 1.56 Random Glucose 96 Total Protein 8.0 Albumin 3.6 Calcium Level 8.5 Alkaline Phosphatase 62 Aspartate Amino Transf (AST/SGOT) 51 Alanine Aminotransferase (ALT/SGPT) 39 Total Bilirubin 0.9 Sodium Level 138 Potassium Level 3.5 Chloride Level 103 Carbon Dioxide Level 26.7 Anion Gap 8 Estimat Glomerular Filtration Rate 47 Total Creatine Kinase 2211 Creatine Kinase MB 2.0 Creatine Kinase MB % 0.1 Troponin I 0.73 Lactic Acid Level 1.1 B-Type Natriuretic Peptide 764 Date/Time Source Procedure Growth Status 04/05/17 11:40 Blood Peripheral Aerobic Blood Culture Pending Received 04/05/17 11:40 Blood Peripheral Anaerobic Blood Culture Pending Received 04/05/17 11:55 Nasal Washing Influenza Types A,B Antigen (SHALINI) - Final NEGATIVE FOR FLU A AND B ANTIGEN.... Complete 04/05/17 10:00 Urine Random Urine Urine Culture Pending Received Result Diagram: 04/05/17 1000 04/05/17 1000 Imaging Last Impressions Abdomen/Pelvis CT 04/05/17 1123 Signed Impressions: Service Date/Time: Wednesday, April 05, 2017 13:12 - CONCLUSION: 1. No acute process. 2. Umbilical hernia. 3. Cardiomegaly. Kenji Deleon MD Chest X-Ray 04/05/17 0944 Signed Impressions: Service Date/Time: Wednesday, April 05, 2017 10:08 - CONCLUSION: 1. Compensated cardiomegaly. 2. Lungs are clear. Jacob Zepeda MD Abdomen X-Ray 04/05/17 0000 Signed Impressions: Service Date/Time: Wednesday, April 05, 2017 10:11 - CONCLUSION: Radiographically benign abdomen. Jacob Zepeda MD [place] VTE Risk Assessment Caprini VTE Risk Assessment: Mod/High Risk (score >= 2) Caprini Risk Assessment Model Point Value = 1 Point Value = 2 Point Value = 3 Point Value = 5 Age 41-60 Minor surgery BMI > 25 kg/m2 Swollen legs Varicose veins or History of unexplained or recurrent spontaneous Oral contraceptives or hormone replacement Sepsis (< 1 month) Serious lung disease, including pneumonia (< 1 month) Abnormal pulmonary function Acute myocardial infarction Congestive heart failure (< 1 month) History of inflammatory bowel disease Medical patient at bed rest Age 61-74 Arthroscopic surgery Major open surgery (> 45 min) Laparoscopic surgery (> 45 min) Malignancy Confined to bed (> 72 hours) Immobilizing plaster cast Central venous access Age >= 75 History of VTE Family history of VTE Factor V Leiden Prothrombin [id number] Lupus anticoagulant Anticardiolipin antibodies Elevated serum homocysteine Heparin-induced thrombocytopenia Other congenital or acquired thrombophilia Stroke (< 1 month) Elective arthroplasty Hip, pelvis, or leg fracture Acute spinal cord injury (< 1 month) Prophylaxis Regimen Total Risk Factor Score Risk Level Prophylaxis Regimen 0-1 Low Early ambulation 2 Moderate Order ONE of the following: *Sequential Compression Device (SCD) *Heparin 5000 units SQ BID 3-4 Higher Order ONE of the following medications: *Heparin 5000 units SQ TID *Enoxaparin/Lovenox 40 mg SQ daily (WT < 150 kg, CrCl > 30 mL/min) *Enoxaparin/Lovenox 30 mg SQ daily (WT < 150 kg, CrCl > 10-29 mL/min) *Enoxaparin/Lovenox 30 mg SQ BID (WT < 150 kg, CrCl > 30 mL/min) AND/OR *Sequential Compression Device (SCD) 5 or more Highest Order ONE of the following medications: *Heparin 5000 units SQ TID (Preferred with Epidurals) *Enoxaparin/Lovenox 40 mg SQ daily (WT < 150 kg, CrCl > 30 mL/min) *Enoxaparin/Lovenox 30 mg SQ daily (WT < 150 kg, CrCl > 10-29 mL/min) *Enoxaparin/Lovenox 30 mg SQ BID (WT < 150 kg, CrCl > 30 mL/min) AND *Sequential Compression Device (SCD) Assessment and Plan Assessment and Plan 31 years old female came with Hypertensive urgency/emergency with tachycardia Increase troponin 0.73 with increased CK Rhabdo with increased CK History of cardiomyopathy with EF 30% on 2-D echo 1 year ago Shortness of breath with history of asthma mostly exacerbation History of hypertension DVT prophylaxis Plan: Started on Cardizem drip, we avoided beta obinna due to her asthma exacerbation We'll admit patient to ICU for close monitoring of her blood pressure Patient was given hydralazine 20 mg iv which decreased her blood pressure, will make her goal 160/95 for the next 12 hours to avoid watershed stroke Continue her home meds dose of hydralazine, I will add lisinopril 20 mg daily Tomorrow will start further control of her blood pressure, will add Vasotec and clonidine when necessary Solu-Medrol and DuoNeb has been ordered Repeat 2-D echo Continue Aldactone, I will hold on further Lasix patient doesn't seem to be in decompensation, also considering increased CK and rhabdomyolysis Monitor CK and BMP Consulted cardiology consultation Patient was given 1 dose of Rocephin in ED for suspect UTI, she doesn't have dysuria, UA not very impressive, we'll stop Rocephin Heparin and SCD for DVT prophylaxis Discussed Condition With Patient in ED physician Lynette Melendez MD Apr 05, 2017 14:43
[2017-04-05] MEDS: RESP: IPRATROPIUM 0.5 MG/2.5 ML NEB NEB SCH ×2 (15:46→21:23)
[2017-04-05] MEDS: SPIRONOLACTONE 25 MG TAB PO SCH (15:50)
[2017-04-05] MEDS: LISINOPRIL 20 MG TAB PO SCH (15:50)
[2017-04-05] MEDS: hydrALAZINE HCL 10 MG TAB PO SCH (18:23)
[2017-04-05] MEDS: methylPREDNISolone SOD SUCC 40 MG/1 ML VIAL IV PUSH SCH ×2 (18:23→23:11)
[2017-04-05] MEDS ORDERED: CHLORHEXIDINE GLUCONATE 2 % 1 PACK (2 CLOTHS)(extra cloths) TOPICAL PRN (23:15)
[2017-04-06] VITALS (28 sets, daily range): BP systolic 127–211; BP diastolic 62–110; PULSE 80–102; RESP 0–39; TEMP 98.3–99; O2SAT 96–100
[2017-04-06] MEDS: DILTIAZEM INJ 125 MG in SODIUM CHLORIDE 0.9% INJ 100 ML IV PRN (01:51)
[2017-04-06] MEDS: RESP: LEVALBUTEROL HYDROCHLORIDE 1.25 MG/3 ML NEB (SCH) NEB ×3 (01:58→16:00)
[2017-04-06] MEDS ORDERED: CHLORHEXIDINE GLUCONATE 2 % 1 PACK (2 CLOTHS)(taper/protocol) TOPICAL SCH (04:00)
[2017-04-06] MEDS: methylPREDNISolone SOD SUCC 40 MG/1 ML VIAL IV PUSH SCH ×3 (06:14→17:47)
[2017-04-06] MEDS ORDERED: cloNIDine HCL 0.1 MG TAB PO PRN (07:30)
[2017-04-06] MEDS ORDERED: ENALAPRILAT 1.25 MG/ML VIAL IV PUSH PRN (07:30)
[2017-04-06] MEDS: hydrALAZINE HCL 10 MG TAB PO SCH ×3 (08:33→17:47)
[2017-04-06] MEDS: LISINOPRIL 20 MG TAB PO SCH (08:33)
[2017-04-06] MEDS: SPIRONOLACTONE 25 MG TAB PO SCH (08:33)
[2017-04-06] MEDS: RESP: IPRATROPIUM 0.5 MG/2.5 ML NEB NEB SCH ×3 (08:56→20:32)
[2017-04-06 09:06] LABS: BASOPHIL % 0.2 % (0.0-2.0); HEMO FLAGS DIFF FINAL; LYMPH % 8.6 % (9.0-44.0); LYMPHOCYTE # 0.7 TH/MM3 (1.0-4.8); MEAN CELL VOLUME 71.2 FL (80.0-100.0); MEAN CORPUSCULAR HEMOGLOBIN 22.2 PG (27.0-34.0); MEAN CORPUSCULAR HGB CONC 31.1 % (32.0-36.0); MONO % 2.4 % (0.0-8.0); NEUT % 88.8 % (16.0-70.0); PLATELET COUNT 305 TH/MM3 (150-450); RED CELL DISTRIBUTION WIDTH 21.1 % (11.6-17.2); WHITE BLOOD COUNT 7.8 TH/MM3 (4.0-11.0)
[2017-04-06 09:54] LABS: BICARBONATE 24.6 MEQ/L (21.0-32.0)
--- NOTE | 2017-04-06 13:02 | EKG ---
Date Performed: 04/05/2017 Time Performed: 11:44:03 PTAGE: 31 years EKG: SINUS TACHYCARDIA ST-T abnormalities possibly from left ventricular hypertrophy. Cannot exc lude ischemia. Since PREVIOUS TRACING , no significant change noted. PREVIOUS TRACIN01/01/2017 20.31 DOCTOR: Ramon Marie Interpretating Date/Time 04/06/2017 13:01:12
--- NOTE | 2017-04-06 14:52 | ECHRPT ---
Indication: CONCLUSIONS The left ventricular systolic function is moderately reduced with an estimated ejection fraction of 40%. Mild mitral valve regurgitation. There is mild tricuspid valve regurgitation. The estimated pulmonary arterial pressure is 23 mmHg. BP: / HR: Rhythm: MEASUREMENTS (Male / Female) Normal Values Technical Quality:Technically difficult study 2D ECHO LV Diastolic Diameter PLAX 6.5 cm 4.2 - 5.9 / 3.9 - 5.3 cm LV Systolic Diameter PLAX 5.2 cm IVS Diastolic Thickness 2.2 cm 0.6 - 1.0 / 0.6 - 0.9 cm LVPW Diastolic Thickness 1.8 cm 0.6 - 1.0 / 0.6 - 0.9 cm LV Relative Wall Thickness 0.6 RV Internal Dim ED PLAX 3.3 cm M-MODE Aortic Root Diameter MM 3.5 cm LA Systolic Diameter MM 6.0 cm LA Ao Ratio MM 1.7 DOPPLER Mitral E Point Velocity 115.0 cm/s Mitral A Point Velocity 118.0 cm/s Mitral E to A Ratio 1.0 LV E' Lateral Velocity 5.7 cm/s Mitral E to LV E' Lateral Ratio 20.4 LV E' Septal Velocity 5.5 cm/s Mitral E to LV E' Septal Ratio 21.1 TR Peak Velocity 182.0 cm/s TR Peak Gradient 13.0 mmHg Right Atrial Pressure 10.0 mmHg Pulmonary Artery Systolic Pressu 23.2 mmHg Right Ventricular Systolic Press 23.2 mmHg FINDINGS LEFT VENTRICLE The left ventricular systolic function is moderately reduced with an estimated ejection fraction of 40%. RIGHT VENTRICLE Normal right ventricular size and systolic function. LEFT ATRIUM The left atrial size is normal. RIGHT ATRIUM The right atrial size is normal. ATRIAL SEPTUM Normal atrial septal thickness without atrial level shunting by limited color doppler interrogation. AORTA The aortic root and proximal ascending aorta are normal in size on limited imaging. MITRAL VALVE Structurally normal mitral valve. Mild mitral valve regurgitation. AORTIC VALVE Trileaflet aortic valve. No aortic valve regurgitation. No aortic valve stenosis. TRICUSPID VALVE Structurally normal tricuspid valve. There is mild tricuspid valve regurgitation. The estimated pulmonary arterial pressure is 23.2 mmHg. PULMONARY VALVE No pulmonary valve regurgitation or stenosis. VESSELS The inferior vena cava is normal in size. PERICARDIUM No pericardial effusion. Akhil Swenson MD, FACC (Electronically Signed) Final Date:06 April 2017 14:51
[2017-04-06] MEDS: hydrALAZINE HCL 20 MG/ML VIAL IV PUSH PRN ×2 (15:23→15:30)
[2017-04-06] MEDS ORDERED: METOPROLOL TARTRATE 5 MG/5 ML VIAL IV PUSH ONE (16:30)
[2017-04-06] MEDS ORDERED: METOPROLOL TARTRATE 25 MG TAB PO ONE (16:30)
[2017-04-06] MEDS ORDERED: NIFEdipine 30 MG SUSTAINED RELEASE TAB PO ONE ×2 (16:30→22:00)
[2017-04-06 16:51] LABS: CKMB 3.3 NG/ML (0.5-3.6)
[2017-04-06] MEDS: METOPROLOL TARTRATE 50 MG TAB PO SCH (21:00)
[2017-04-06] MEDS ORDERED: SODIUM BICARBONATE 650 MG TAB PO ONE (21:45)
[2017-04-06] MEDS ORDERED: HYDROCHLOROTHIAZIDE 25 MG TAB PO ONE (21:45)
--- NOTE | 2017-04-06 21:56 | HHI.PR ---
Subjective Remarks Patient says that shortness of breath somewhat better today. Reports coughing slightly improved. Denies any chest pain. Reports continued generalized fatigue. Objective Vital Signs Date Time Temp Pulse Resp B/P (MAP) Pulse Ox O2 Delivery O2 Flow Rate FiO2 04/06/17 20:32 100 21 04/06/17 18:00 86 04/06/17 18:00 86 33 179/98 (125) 100 04/06/17 17:30 80 5 173/96 (121) 99 04/06/17 17:00 89 39 179/98 (125) 99 04/06/17 16:30 95 39 177/103 (127) 100 04/06/17 16:04 96 178/100 04/06/17 16:00 94 04/06/17 16:00 98.9 94 39 178/100 (126) 100 04/06/17 15:00 93 0 183/102 (129) 99 04/06/17 14:28 102 11 211/110 (143) 99 04/06/17 14:00 87 04/06/17 14:00 87 30 175/95 (121) 100 04/06/17 13:38 88 35 158/90 (112) 99 04/06/17 13:17 92 23 179/106 (130) 99 04/06/17 13:00 94 10 210/108 (142) 100 04/06/17 12:05 92 04/06/17 12:04 93 32 168/94 (118) 99 04/06/17 10:01 91 34 127/62 (83) 97 04/06/17 10:01 91 34 127/62 (83) 97 04/06/17 10:00 92 04/06/17 10:00 92 23 97 04/06/17 09:01 88 13 173/101 (125) 100 04/06/17 08:57 98 21 04/06/17 08:00 83 04/06/17 08:00 83 19 174/97 (122) 99 04/06/17 07:01 85 7 169/84 (112) 100 04/06/17 06:01 81 32 178/92 (120) 99 04/06/17 06:00 80 04/06/17 05:01 82 28 175/98 (123) 96 04/06/17 04:00 83 04/06/17 04:00 98.5 83 34 173/95 (121) 98 04/06/17 02:00 86 04/06/17 01:51 84 165/99 04/06/17 00:00 87 04/06/17 00:00 98.3 87 13 165/99 (121) 98 04/05/17 22:00 91 I/O 04/05/17 04/05/17 04/05/17 04/06/17 04/06/17 04/06/17 07:00 15:00 23:00 07:00 15:00 23:00 Intake Total 1100 ml 350 ml 245 ml 896 ml Balance 1100 ml 350 ml 245 ml 896 ml Intake Oral 350 ml 120 ml 700 ml IV Total 1100 ml 125 ml 196 ml # Voids 2 4 3 # Bowel Movements 0 0 0 Result Diagram: 04/06/1783104/06/17831 Objective Remarks GENERAL: patient sitting up in bed. Able to communicate, appears comfortable, however breathing does somewhat effective communication. SKIN: Warm and dry. HEAD: Normocephalic. EYES: No scleral icterus. No injection or drainage. NECK: Supple, trachea midline. plethoric CARDIOVASCULAR: Regular rate and rhythm without murmurs, gallops, or rubs. RESPIRATORY: Breath sounds equal bilaterally. No accessory muscle use. GASTROINTESTINAL: Abdomen soft, non-tender, nondistended. MUSCULOSKELETAL: No cyanosis, or edema. BACK: Nontender without obvious deformity. No CVA tenderness. A/P Assessment and Plan 31 years old female came with //Hypertensive urgency/emergency with sinus tachycardia -dc diltiazem drip. Restart home metoprolol. Start nifedipine with improvement. Continue to monitor. //Increase troponin 0.73 with increased CK //CHF exacerbation with history of cardiomyopathy ejection fraction 30% on 2-D echo 1 year ago. -Expect the patient may have cardiogenic asthma -Echocardiogram 40% EF. -Have ordered urine drug screen which appears to be difficult to obtain. -Consult cardiology. Focus on afterload reduction. Close monitoring. //Rhabdo with increased CK -Like to avoid fluids in the setting of hypertensive urgency. Have ordered by mouth bicarbonate. Recheck levels tomorrow. // asthma exacerbation. -Check drug screen. -Chest x-ray no acute findings. = Nebs, IV steroids. Due to bronchitis, will start Levaquin. QTC in the 420s on admission. DVT prophylaxisheparin Discharge Planning pending clinical improvement. Cardiology consult pending. Preet Knapp MD Apr 06, 2017 21:56
[2017-04-06] MEDS ORDERED: LEVOFLOXACIN 750 MG TAB PO ONE (22:00)
[2017-04-06] MEDS: HEPARIN SODIUM - SQ 10,000 UNITS/ML VIAL SQ SCH (22:04)
[2017-04-07] VITALS (8 sets, daily range): BP systolic 128–156; BP diastolic 67–81; PULSE 73–84; RESP 10–28; TEMP 97.9–98.8; O2SAT 98–100
[2017-04-07] MEDS: RESP: LEVALBUTEROL HYDROCHLORIDE 1.25 MG/3 ML NEB (SCH) NEB
[2017-04-07] MEDS: methylPREDNISolone SOD SUCC 40 MG/1 ML VIAL IV PUSH SCH (04:02)
[2017-04-07] MEDS: RESP: IPRATROPIUM 0.5 MG/2.5 ML NEB NEB SCH ×2 (04:09→10:03)
[2017-04-07 07:06] LABS: AUTOMATED NEUTROPHIL # 14.2 TH/MM3 (1.8-7.7); BASOPHIL % 0.1 % (0.0-2.0); HEMATOCRIT 33.2 % (35.0-46.0); HEMO FLAGS DIFF FINAL; LYMPH % 4.4 % (9.0-44.0); LYMPHOCYTE # 0.7 TH/MM3 (1.0-4.8); MEAN CELL VOLUME 71.2 FL (80.0-100.0); MEAN CORPUSCULAR HEMOGLOBIN 22.1 PG (27.0-34.0); MEAN CORPUSCULAR HGB CONC 31.1 % (32.0-36.0); MONO % 2.2 % (0.0-8.0); NEUT % 93.3 % (16.0-70.0); PLATELET COUNT 341 TH/MM3 (150-450); RED BLOOD COUNT 4.66 MIL/MM3 (4.00-5.30); RED CELL DISTRIBUTION WIDTH 20.9 % (11.6-17.2); WHITE BLOOD COUNT 15.2 TH/MM3 (4.0-11.0)
[2017-04-07 07:39] LABS: BICARBONATE 24.8 MEQ/L (21.0-32.0); MAGNESIUM 2.5 MG/DL (1.5-2.5); POTASSIUM 3.8 MEQ/L (3.5-5.1)
[2017-04-07] MEDS: SPIRONOLACTONE 25 MG TAB PO SCH (08:44)
[2017-04-07] MEDS: METOPROLOL TARTRATE 50 MG TAB PO SCH (08:44)
[2017-04-07] MEDS: LISINOPRIL 20 MG TAB PO SCH (08:44)
[2017-04-07] MEDS: hydrALAZINE HCL 10 MG TAB PO SCH (08:45)
[2017-04-07] MEDS: HEPARIN SODIUM - SQ 10,000 UNITS/ML VIAL SQ SCH (08:45)
[2017-04-07] MEDS ORDERED: NIFEdipine 30 MG SUSTAINED RELEASE TAB PO SCH ×2 (09:00)
[2017-04-07] MEDS ORDERED: HYDROCHLOROTHIAZIDE 25 MG TAB PO SCH (09:00)
[2017-04-07] MEDS ORDERED: LEVOFLOXACIN 500 MG TAB PO SCH (09:00)
[2017-04-07] MEDS ORDERED: NIFE30TA8 PO (10:44)
[2017-04-07] MEDS ORDERED: LISI-515 PO (10:44)
--- NOTE | 2017-04-07 10:46 | HHI.DS ---
Discharge Summary Admission Date Apr 05, 2017 at 13:51 Discharge Date: Apr 07, 2017 Admitting Diagnosis hypertensive crisis/elevated troponin/urinary tract infection/asthma (1) Hypertensive emergency ICD Code: I10 - Essential (primary) hypertension Status: Acute (2) Elevated troponin ICD Code: R79.89 - Other specified abnormal findings of blood chemistry Status: Acute (3) Asthma ICD Code: J45.909 - Unspecified asthma, uncomplicated Procedures None Brief History - From Admission History of present illness from the admitting team 31 years old female who has a history of multiple admission to the hospital due to COPD and cardiomyopathy presented to the ED this time with a flulike symptoms, congestion, cough, fever and generalized body aching, nausea vomiting and diarrhea and increased wheezing. In ED she was found to have a blood pressure of 224/117, patient was given dose of Solu-Medrol and it nebulizer. She also was found to have increased troponin 0.7 which is slightly above her usual level 0.5-0.6. Chest x-ray was negative. Patient was given morphine sulfate. Currently she denied chest pain headache lightheaded, she is short of breath with wheezing. No dysuria CBC/BMP: 04/07/17 0629 04/07/17 0629 Significant Findings Laboratory Tests Test 04/05/17 10:00 04/05/17 11:40 04/05/17 11:56 04/06/17 06:58 Hemoglobin 9.6 GM/DL (11.6-15.3) Hematocrit 30.5 % (35.0-46.0) Mean Corpuscular Volume 71.7 FL (80.0-100.0) Mean Corpuscular Hemoglobin 22.6 PG (27.0-34.0) Mean Corpuscular Hemoglobin Concent 31.5 % (32.0-36.0) Red Cell Distribution Width 21.0 % (11.6-17.2) Neutrophils (%) (Auto) 76.7 % (16.0-70.0) Lymphocytes # (Auto) 0.9 TH/MM3 (1.0-4.8) Prothrombin Time 12.1 SEC (9.8-11.6) Urine Turbidity HAZY (CLEAR) Urine Protein 100 mg/dL (NEG-TRACE) Urine Occult Blood TRACE (NEG) Urine Leukocyte Esterase SMALL (NEG) Urine Bacteria MOD /hpf (NONE) Urine Mucus FEW /lpf (OCC) Creatinine 1.56 MG/DL (0.50-1.00) Aspartate Amino Transf (AST/SGOT) 51 U/L (15-37) Estimat Glomerular Filtration Rate 47 ML/MIN (>89) Total Creatine Kinase 2211 U/L (26-192) Troponin I 0.73 NG/ML (0.02-0.05) B-Type Natriuretic Peptide 764 PG/ML (0-100) Test 04/06/17 08:32 04/07/17 06:29 Hemoglobin 10.0 GM/DL (11.6-15.3) 10.3 GM/DL (11.6-15.3) Hematocrit 32.0 % (35.0-46.0) 33.2 % (35.0-46.0) Mean Corpuscular Volume 71.2 FL (80.0-100.0) 71.2 FL (80.0-100.0) Mean Corpuscular Hemoglobin 22.2 PG (27.0-34.0) 22.1 PG (27.0-34.0) Mean Corpuscular Hemoglobin Concent 31.1 % (32.0-36.0) 31.1 % (32.0-36.0) Red Cell Distribution Width 21.1 % (11.6-17.2) 20.9 % (11.6-17.2) Neutrophils (%) (Auto) 88.8 % (16.0-70.0) 93.3 % (16.0-70.0) Lymphocytes (%) (Auto) 8.6 % (9.0-44.0) 4.4 % (9.0-44.0) Lymphocytes # (Auto) 0.7 TH/MM3 (1.0-4.8) 0.7 TH/MM3 (1.0-4.8) Creatinine 1.32 MG/DL (0.50-1.00) 1.26 MG/DL (0.50-1.00) Random Glucose 134 MG/DL (74-106) 132 MG/DL (74-106) Estimat Glomerular Filtration Rate 58 ML/MIN (>89) 61 ML/MIN (>89) Total Creatine Kinase 2392 U/L (26-192) 1780 U/L (26-192) White Blood Count 15.2 TH/MM3 (4.0-11.0) Neutrophils # (Auto) 14.2 TH/MM3 (1.8-7.7) Blood Urea Nitrogen 21 MG/DL (7-18) Sodium Level 135 MEQ/L (136-145) Creatine Kinase MB 4.0 NG/ML (0.5-3.6) Imaging Last Impressions Abdomen/Pelvis CT 04/05/17 1123 Signed Impressions: Service Date/Time: Wednesday, April 05, 2017 13:12 - CONCLUSION: 1. No acute process. 2. Umbilical hernia. 3. Cardiomegaly. Kenji Deleon MD Chest X-Ray 04/05/17 0944 Signed Impressions: Service Date/Time: Wednesday, April 05, 2017 10:08 - CONCLUSION: 1. Compensated cardiomegaly. 2. Lungs are clear. Jacob Zepeda MD Abdomen X-Ray 04/05/17 0000 Signed Impressions: Service Date/Time: Wednesday, April 05, 2017 10:11 - CONCLUSION: Radiographically benign abdomen. Jacob Zepeda MD PE at Discharge GENERAL: Obese female in no apparent distress. CARDIOVASCULAR: Normal rate and regular rhythm without murmurs, gallops, or rubs. RESPIRATORY: Good respiratory efforts. Breath sounds equal and clear to auscultation bilaterally. GASTROINTESTINAL: Abdomen soft, non-tender, non-distended. Normal active bowel sounds MUSCULOSKELETAL: Extremities without cyanosis, or edema. NEURO: Alert & Oriented x4 to person, place, time, situation. Moves all ext x4 PSYCH: Appropriate mood and affect. Pt update on day of discharge Patient reports she is feeling great. Ready to go home. No chest pain or shortness of breath. She states her blood pressure became uncontrolled because she couldn't take her medications due to nausea and vomiting. Hospital Course 31 years old female admitted with hypertensive emergency and sinus tachycardia. Patient had elevated troponins on presentation. Apparently she has not been able to take her regular antihypertensives due to flulike symptoms. The patient was admitted in the ICU and was started on a Cardizem drip. This was eventually weaned off. He was seen by cardiology who advised continuing current medications. The patient also presented in what appears to be an asthma exacerbation. She was treated with steroids. Her symptoms completely resolved once her blood pressure came under control. She is discharged home in good condition on blood pressure regiment as noted below. She will follow-up outpatient with her senior engineering associate. Pt Condition on Discharge: Good Discharge Disposition: Discharge Home Discharge Time: <= 30 minutes Discharge Instructions DIET: Follow Instructions for: Heart Healthy Diet Activities you can perform: Regular-No Restrictions Follow up Referrals: PCP Follow-up - 2 Weeks New Medications: Lisinopril (Lisinopril) 20 Mg Tab 20 MG PO DAILY, #30 TAB Nifedipine ER 24 HR (Nifedipine ER 24 HR) 30 Mg Tab 30 MG PO DAILY, #30 TAB Continued Medications: Albuterol 18 GM Inh (Ventolin Hfa 18 GM Inh) 90 Mcg/Act Aer 2 PUFF INH Q4-6H PRN for SHORTNESS OF BREATH, #1 INHALER [address] (Adult Aspirin EC Low Strength) 81 Mg Tabec 81 MG PO DAILY for Heart, #30 TAB 0 Refills Hydralazine HCl (Hydralazine HCl) 25 Mg Tablet 5 MG PO TID for Blood Pressure Management, #60 TAB 0 Refills Metoprolol Tartrate (Metoprolol Tartrate) 50 Mg Tab 50 MG PO BID, #60 TAB 0 Refills Potassium Chloride ER (Klor-Con 10) 10 Meq Tab 10 MEQ PO DAILY for Electrolyte Replacement, #30 TAB 0 Refills Spironolactone (Spironolactone) 25 Mg Tab 25 MG PO DAILY, #30 TAB 0 Refills Burke Jacinto MD Apr 07, 2017 10:46
--- NOTE | 2017-04-07 12:53 | MB ---
cc: AKHIL SWENSON DATE OF CONSULTATION 04/07/2017 REASON FOR CONSULTATION Ms. Schulz is a 31-year-old black female with a history of COPD, cardiomyopathy who developed flu-like symptoms, cough, fever, congestion associated with nausea, vomiting and diarrhea. She has not been able to keep her medications down and her blood pressure was significantly elevated. She also has shortness of breath and wheezing. She has not had any angina. She was started back on medications. Her blood pressure and her symptoms have significantly improved. She is feeling much better this morning. PAST MEDICAL HISTORY Positive for: 1. Hypertension 2. Congestive heart failure 3. Cardiomyopathy with mild to moderate left ventricular systolic dysfunction. 4. Asthma ALLERGIES SHELLFISH MEDICATIONS 1. Albuterol 2. Hydralazine 3. Metoprolol 4. Nifedipine 5. Lisinopril 6. Spironolactone 7. Aspirin 8. Potassium SOCIAL HISTORY The patient does not smoke. She does not drink alcohol. FAMILY HISTORY Negative for heart disease. REVIEW OF SYSTEMS Otherwise negative. PHYSICAL EXAMINATION VITAL SIGNS: Blood pressure 157/81, pulse 76 and regular. HEENT: Negative. 2+ carotid upstrokes. No bruits. LUNGS: Few wheezes. CARDIAC: No murmurs, gallops or rubs. ABDOMEN: Soft, no bruits. EXTREMITIES: Without edema. 2+ distal pulses. NEUROLOGIC: Grossly nonfocal. EKG was reviewed and showed sinus tachycardia, normal axis and intervals and nonspecific ST-T changes. LABORATORY DATA Hemoglobin 10.3, potassium 3.8, creatinine 1.26, CK 1780, troponin 0.73, 0.1 and 0.2. BNP 764. DIAGNOSIS 1. Hypertensive urgency 2. CHF 3. Cardiomyopathy with mild to moderate left ventricular systolic dysfunction. 4. Rhabdomyolysis 5. Asthma exacerbation DISPOSITION Ms. Schulz was started back on her medical therapy. She has had no further symptoms. Her blood pressure is better controlled. Her echocardiogram shows moderate left ventricular dysfunction with an ejection fraction of 40%. She can be discharged home from the cardiac standpoint on her medications. She will continue therapy for her congestive heart failure and cardiomyopathy. I will see her back for followup in our office as planned in the near future. Akhil Swenson MD [place]/JENNY /12:16 PM /12:30 PM KE[place]AN
== END 2017-04-07 11:05 | disposition home or self-care (01) | DRG 304 ==
LOC: NEPD 09:25 → NEDA 13:51 → HIMN 15:05
PROVIDERS: ADMIT Family Medicine; ATTEND Family Medicine
DX: I16.1 Hypertensive emergency (principal); I11.0 Hypertensive heart disease with heart failure; I50.23 Acute on chronic systolic (congestive) heart failure; I42.9 Cardiomyopathy, unspecified; M62.82 Rhabdomyolysis; J45.901 Unspecified asthma with (acute) exacerbation; Z68.43 Body mass index [BMI] 50.0-59.9, adult; I10 Essential (primary) hypertension; J44.9 Chronic obstructive pulmonary disease, unspecified; R74.8 Abnormal levels of other serum enzymes; E66.9 Obesity, unspecified; Z91.013 Allergy to seafood; D50.9 Iron deficiency anemia, unspecified; R82.99 Other abnormal findings in urine; R00.0 Tachycardia, unspecified; R11.2 Nausea with vomiting, unspecified; R50.9 Fever, unspecified
CPT/HCPCS: 71010; 74020; 74176; 76937; 80048; 80053; 80069; 80307; 81001; 82550; 82552; 83605; 83735; 83880; 84484; 84703; 85025; 85610; 85730; 87040; 87086; 87641; 87804; 93005; 93306; 94640; 94664; 96374; 96375; J0360; J0696; J1644; J2270; J2405; J2920; J2930; J7030; J7614; J7644

== ENCOUNTER 2017-04-13 18:48 | Inpatient (IN) | payer BC ==
[~2017-04-13] VITALS: Ht 180.3 cm; Wt 175.4 kg
[~2017-04-13 18:48] MED LIST changes: -FURO40TA PO; +LISI-515 PO; +NIFE30TA8 PO; -ZOFR4TAB3 SL
[2017-04-13 18:50] VITALS: BP 183/98; PULSE 105; RESP 16; TEMP 102.8; O2SAT 97
[2017-04-13] MEDS ORDERED: RESP: ALBUTEROL 2.5 MG/IPRATROPIUM 0.5 MG NEB (SCH) INH ONE (19:30)
[2017-04-13] MEDS ORDERED: SODIUM CHLORIDE 0.9% FLUSH 10 ML FLUSH IVF PRN (19:30)
[2017-04-13 19:32] VITALS: RESP 19; O2SAT 98
[2017-04-13] MEDS ORDERED: FURO1TAB60 PO (19:39)
--- NOTE | 2017-04-13 19:39 | PD ---
HPI Chief Complaint: Respiratory Symptoms Time Seen by Provider: 19:26 Travel History International Travel<30 days: No Contact w/Intl Traveler<30days: No Traveled to known affect area: No History of Present Illness HPI This is a 31-year-old female history of essential hypertension, CHF, asthma, who presents today with complaints of wheezing and cough. The patient states she was seen by her primary care physician who sent her here to rule out pneumonia. The patient reports fevers over the last 3 days. She denies any chills. She states that she's been coughing but has not been looking at her phlegm. She states when she coughs up phlegm she swallows it. Patient does report wheezing. The shortness of breath is mainly associated with the cough. There are no other complaints time my examination. PFSH Past Medical History Asthma: Yes Cardiovascular Problems: Yes (HTN) Congestive Heart Failure: Yes Diminished Hearing: No Hypertension: Yes Immunizations Current: Yes LMP: 02/2017 Social History Alcohol Use: No Tobacco Use: No Substance Use: No Allergies-Medications (Allergen,Severity, Reaction): Coded Allergies: shellfish derived (Unverified Adverse Reaction, Severe, Anaphylaxis, 04/13) Reported Meds & Prescriptions Reported Meds & Active Scripts Active Lisinopril 20 Mg Tab 20 Mg PO DAILY Nifedipine ER 24 HR (Nifedipine) 30 Mg Tab 30 Mg PO DAILY Ventolin Hfa 18 GM Inh (Albuterol Sulfate) 90 Mcg/Act Aer 2 Puff INH Q4-6H PRN Adult Aspirin EC Low Strength (Aspirin) 81 Mg Tabec 81 Mg PO DAILY Reported Lasix (Furosemide) 40 Mg Tab 40 Mg PO DAILY Klor-Con 10 (Potassium Chloride) 10 Meq Tab 10 Meq PO DAILY Spironolactone 25 Mg Tab 25 Mg PO DAILY Hydralazine HCl 25 Mg Tablet 5 Mg PO TID Metoprolol Tartrate 50 Mg Tab 50 Mg PO BID Review of Systems Except as stated in HPI: all other systems reviewed are Neg General / Constitutional: Positive: Fever, No: Chills HENT: No: Headaches, Neck Pain Cardiovascular: No: Chest Pain or Discomfort Respiratory: Positive: Cough, Shortness of Breath, Wheezing Gastrointestinal: No: Nausea, Vomiting, Abdominal Pain Musculoskeletal: No: Weakness, Pain Neurologic: No: Weakness, Dizziness, Headache Physical Exam Narrative GENERAL: Well-nourished, well-developed patient, in no acute respiratory distress.. SKIN: Focused skin assessment warm/dry. HEAD: Normocephalic/atraumatic. EYES: No scleral icterus. No injection or drainage. NECK: Supple, trachea midline. No JVD or lymphadenopathy. CARDIOVASCULAR: Regular rate and rhythm without murmurs, gallops, or rubs. RESPIRATORY: Bilateral expiratory wheezes in the upper and lower lung mcke[place] area there are no Rales appreciated. GASTROINTESTINAL: Abdomen soft, obese, non-tender, nondistended. MUSCULOSKELETAL: No cyanosis, or edema. NEUROLOGICAL: Awake and alert. Cranial nerves II through XII intact. Motor grossly within normal limits. Five out of 5 muscle strength in all muscle groups. Normal speech. Data Data Last Documented VS Vital Signs Date Time Temp Pulse Resp B/P (MAP) Pulse Ox O2 Delivery O2 Flow Rate FiO2 04/13/17 22:24 103.1 103 18 174/99 (124) 98 Room Air 04/13/17 19:32 2.00 Orders Orders Complete Blood Count With Diff (04/13/17 19:26) Comprehensive Metabolic Panel (04/13/17 19:26) B-Type Natriuretic Peptide (04/13/17 19:26) Ckmb (Isoenzyme) Profile (04/13/17 19:26) Troponin I (04/13/17 19:26) Iv Access Insert/Monitor (04/13/17 19:26) Ecg Monitoring (04/13/17 19:26) Oximetry (04/13/17 19:26) Oxygen Administration (04/13/17 19:26) Chest, Pa & Lat (04/13/17 19:26) Albuterol-Ipratropium Neb (Duoneb Neb) (04/13/17 19:30) Albuterol Neb (Albuterol Neb) (04/13/17 19:30) Blood Culture (04/13/17 19:26) Lactic Acid Sepsis Protocol (04/13/17 19:26) CKMB (04/13/17 19:40) CKMB% (04/13/17 19:40) Ceftriaxone Inj (Rocephin Inj) (04/13/17 22:45) Azithromycin Inj (Zithromax Inj) (04/13/17 22:45) Ibuprofen (Motrin) (04/13/17 22:45) Sodium Chlor 0.9% 1000 Ml Inj (Ns 1000 M (04/13/17 22:45) Morphine Inj (Morphine Inj) (04/13/17 22:45) Admit Order (Ed Use Only) (04/13/17 22:49) Labs Laboratory Tests Test 04/13/17 19:40 04/13/17 19:50 White Blood Count 7.0 TH/MM3 Red Blood Count 4.62 MIL/MM3 Hemoglobin 10.2 GM/DL Hematocrit 32.7 % Mean Corpuscular Volume 70.7 FL Mean Corpuscular Hemoglobin 22.1 PG Mean Corpuscular Hemoglobin Concent 31.3 % Red Cell Distribution Width 21.4 % Platelet Count 303 TH/MM3 Mean Platelet Volume 8.4 FL Neutrophils (%) (Auto) 80.4 % Lymphocytes (%) (Auto) 6.7 % Monocytes (%) (Auto) 12.0 % Eosinophils (%) (Auto) 0.2 % Basophils (%) (Auto) 0.7 % Neutrophils # (Auto) 5.6 TH/MM3 Lymphocytes # (Auto) 0.5 TH/MM3 Monocytes # (Auto) 0.8 TH/MM3 Eosinophils # (Auto) 0.0 TH/MM3 Basophils # (Auto) 0.1 TH/MM3 CBC Comment DIFF FINAL Differential Comment Blood Urea Nitrogen 13 MG/DL Creatinine 1.57 MG/DL Random Glucose 97 MG/DL Total Protein 7.5 GM/DL Albumin 3.2 GM/DL Calcium Level 8.6 MG/DL Alkaline Phosphatase 58 U/L Aspartate Amino Transf (AST/SGOT) 31 U/L Alanine Aminotransferase (ALT/SGPT) 38 U/L Total Bilirubin 0.4 MG/DL Sodium Level 133 MEQ/L Potassium Level 4.0 MEQ/L Chloride Level 98 MEQ/L Carbon Dioxide Level 26.0 MEQ/L Anion Gap 9 MEQ/L Estimat Glomerular Filtration Rate 47 ML/MIN Total Creatine Kinase 689 U/L Creatine Kinase MB 1.8 NG/ML Creatine Kinase MB % 0.3 % Troponin I 0.46 NG/ML B-Type Natriuretic Peptide 444 PG/ML Lactic Acid Level 0.8 mmol/L MDM Medical Decision Making Medical Screen Exam Complete: Yes Emergency Medical Condition: Yes Differential Diagnosis Pneumonia versus asthma exacerbation versus CHF versus ACS Narrative Course 31-year-old female history of CHF, essential hypertension, asthma, obesity, presents today with cough and fever. The patient sent here by her primary care doctor for evaluation of possible pneumonia. Patient has a left lower lobe infiltrate. Her temperature is 103. she's been given breathing treatments 3. She'll be admitted to the hospital for IVD antibiotics. Patient's troponin was also elevated. She is not having chest pain at this time. This likely secondary to her cardiomyopathy. We will trend this at this time. There is a call out to the [facility] for admission. Diagnosis Primary Impression: Pneumonia Additional Impressions: chronic kidney injury Elevated troponin Admitting Information Admitting Physician Requests: Admit Doug Suarez MD Apr 13, 2017 19:39
[2017-04-13] MEDS: RESP: ALBUTEROL 2.5 MG/3 ML NEB (SCH) INH (19:49)
[2017-04-13 20:09] LABS: AUTOMATED NEUTROPHIL # 5.6 TH/MM3 (1.8-7.7); BASOPHIL # 0.1 TH/MM3 (0-0.2); BASOPHIL % 0.7 % (0.0-2.0); EOSINOPHIL % 0.2 % (0.0-4.0); HEMATOCRIT 32.7 % (35.0-46.0); HEMO FLAGS DIFF FINAL; LYMPH % 6.7 % (9.0-44.0); LYMPHOCYTE # 0.5 TH/MM3 (1.0-4.8); MEAN CELL VOLUME 70.7 FL (80.0-100.0); MEAN CORPUSCULAR HEMOGLOBIN 22.1 PG (27.0-34.0); MEAN CORPUSCULAR HGB CONC 31.3 % (32.0-36.0); NEUT % 80.4 % (16.0-70.0); PLATELET COUNT 303 TH/MM3 (150-450); RED BLOOD COUNT 4.62 MIL/MM3 (4.00-5.30); RED CELL DISTRIBUTION WIDTH 21.4 % (11.6-17.2)
--- NOTE | 2017-04-13 20:09 | RADRPT ---
EXAM DATE/TIME: 04/13/2017 19:46 [place] COMPARISON: CHEST SINGLE AP, April 05, 2017, 10:08. INDICATIONS : Short of breath. Fever. MEDICAL HISTORY : Congestive heart failure. SURGICAL HISTORY : None. ENCOUNTER: Initial ACUITY: 2 weeks PAIN SCORE: 3/10 LOCATION: Bilateral chest FINDINGS: Moderate cardiomegaly with angiographic configuration. Patchy infiltrates in the left lower lung wit h some air bronchograms M. with loss of delineation of the central left hemidiaphragm. The right lizzie g is clear as the CONCLUSION: 1. Panchamber cardiomegaly 2. Subsegmental infiltrate left lower lobe. Alexey Jarvis MD on April 13, 2017 at 20:06 Board Certified Radiologist. This report was verified electronically.
[2017-04-13 20:37] LABS: ANION GAP 9 MEQ/L (5-15); AST (GOT) 31 U/L (15-37); BLOOD UREA NITROGEN 13 MG/DL (7-18); CHLORIDE 98 MEQ/L (98-107); GLOMERULAR FILTRATION RATE 47 ML/MIN (>89); SODIUM (NA) 133 MEQ/L (136-145)
[2017-04-13 20:38] LABS: ALT (GPT) 38 U/L (10-53)
[2017-04-13 20:41] LABS: ALKALINE PHOSPHATASE 58 U/L (45-117); CREATINE KINASE 689 U/L (26-192); TOTAL BILIRUBIN ADULT 0.4 MG/DL (0.2-1.0)
[2017-04-13 20:53] LABS: CKMB 1.8 NG/ML (0.5-3.6)
[2017-04-13 22:24] VITALS: BP 174/99; PULSE 103; RESP 18; TEMP 103.1; O2SAT 98
[2017-04-13] MEDS ORDERED: IBUPROFEN 800 MG TAB PO ONE (22:45)
[2017-04-13] MEDS ORDERED: MORPHINE SULFATE 2 MG/ML INJ IV PUSH ONE (22:45)
[2017-04-13] MEDS ORDERED: cefTRIAXone INJ 1,000 MG in SODIUM CHLORIDE 0.9% INJ 100 ML IV ONE (22:45)
[2017-04-13] MEDS ORDERED: AZITHROMYCIN INJ 500 MG in SODIUM CHLOR 0.9% 250 ML INJ 250 ML IV ONE (22:45)
[2017-04-13] MEDS: SODIUM CHLOR 0.9% 1000 ML INJ 1,000 ML IV SCH (22:49)
[2017-04-13] MEDS ORDERED: RESP: ALBUTEROL 2.5 MG/IPRATROPIUM 0.5 MG NEB (PRN) INH (23:00)
[2017-04-13] MEDS ORDERED: SODIUM CHLORIDE 0.9% FLUSH 10 ML FLUSH IV FLUSH PRN (23:00)
[2017-04-13 23:47] VITALS: BP 136/75; PULSE 98; RESP 18; TEMP 101.2; O2SAT 98
[2017-04-13 23:58] VITALS: O2SAT 98
[2017-04-14] VITALS (9 sets, daily range): BP systolic 124–169; BP diastolic 68–90; PULSE 83–103; RESP 18–22; TEMP 98.1–100.4; O2SAT 95–98
[2017-04-14] MEDS ORDERED: Vancomycin Consult Pharmacy 1 EA OTHER SCH
--- NOTE | 2017-04-14 00:20 | HHI.HP ---
[facility] Selvin Spence, DO Admission Diagnosis penumonia, chronic kidney injury, elevated troponin, Diagnoses: Travel History International Travel<30 Days: No Contact w/Intl Traveler <30 Da: No Traveled to Known Affected Are: No History of Present Illness 31-year-old female with a past medical history significant for hypertension, cardiomyopathy, CHF with an EF of 40% and asthma presents to the emergency department with a one to two-week history of fever/chills and dyspnea on exertion. The patient reports her symptoms have been worsening. She endorses a nonproductive cough. On arrival to the emergency department she was febrile to 102.8. No leukocytosis. Lactic acid 0.8. Chest x-ray significant for subsegmental infiltrate of the left lower lobe. Troponin was elevated at 0.46, patient has a history of elevated troponin. She denies any chest pain. She was discharged from the hospital on 04/07/17 where she was treated for hypertensive crisis and asthma exacerbation. Review of Systems Positive fever/chills Denies blurry vision, otorrhea, rhinorrhea Denies sore throat and cough No chest pain, palpitations, positive shortness of breath No abdominal pain Denies constipation/diarrhea/nausea/vomiting Denies muscle pain/weakness No rashes Past Family Social History Past Medical History Hypertension Cardiomyopathy CHF with an EF of 40% Asthma Past Surgical History None Reported Medications Reported Meds & Active Scripts Active Lisinopril 20 Mg Tab 20 Mg PO DAILY Nifedipine ER 24 HR (Nifedipine) 30 Mg Tab 30 Mg PO DAILY Ventolin Hfa 18 GM Inh (Albuterol Sulfate) 90 Mcg/Act Aer 2 Puff INH Q4-6H PRN Adult Aspirin EC Low Strength (Aspirin) 81 Mg Tabec 81 Mg PO DAILY Reported Lasix (Furosemide) 40 Mg Tab 40 Mg PO DAILY Klor-Con 10 (Potassium Chloride) 10 Meq Tab 10 Meq PO DAILY Spironolactone 25 Mg Tab 25 Mg PO DAILY Hydralazine HCl 25 Mg Tablet 5 Mg PO TID Metoprolol Tartrate 50 Mg Tab 50 Mg PO BID Allergies: Coded Allergies: shellfish derived (Unverified Adverse Reaction, Severe, Anaphylaxis, 04/13) Family History Father with diabetes mellitus Social History Denies alcohol, tobacco and illicit drugs Physical Exam Vital Signs Vital Signs Date Time Temp Pulse Resp B/P (MAP) Pulse Ox O2 Delivery O2 Flow Rate FiO2 04/13/17 23:58 98 04/13/17 23:47 101.2 98 18 136/75 (95) 98 Room Air 04/13/17 22:24 103.1 103 18 174/99 (124) 98 Room Air 04/13/17 19:32 19 98 Room Air 04/13/17 19:32 98 Nasal Cannula 2.00 04/13/17 19:32 103 19 98 Room Air 04/13/17 18:50 102.8 105 16 183/98 (126) 97 Room Air Physical Exam GENERAL: Obese, female sitting up in bed SKIN: No rashes, ecchymoses or lesions. Cool and dry. HEAD: Atraumatic. Normocephalic. No temporal or scalp tenderness. EYES: Pupils equal round and reactive. Extraocular motions intact. No scleral icterus. No injection or drainage. ENT: Nose without bleeding, purulent drainage or septal hematoma. Throat without erythema, tonsillar hypertrophy or exudate. Uvula midline. Airway patent. NECK: Trachea midline. No JVD or lymphadenopathy. Supple, nontender, no meningeal signs. CARDIOVASCULAR: Regular rate and rhythm without murmurs, gallops, or rubs. RESPIRATORY: Bilateral wheezes throughout. GASTROINTESTINAL: Abdomen soft, non-tender, nondistended. No hepato-splenomegaly , or palpable masses. No guarding. MUSCULOSKELETAL: Extremities without clubbing, cyanosis, or edema. No joint tenderness, effusion, or edema noted. No calf tenderness. NEUROLOGICAL: Awake and alert. Cranial nerves II through XII intact. Motor and sensory grossly within normal limits. Normal speech. Laboratory Laboratory Tests Test 04/13/17 19:40 04/13/17 19:50 White Blood Count 7.0 Red Blood Count 4.62 Hemoglobin 10.2 Hematocrit 32.7 Mean Corpuscular Volume 70.7 Mean Corpuscular Hemoglobin 22.1 Mean Corpuscular Hemoglobin Concent 31.3 Red Cell Distribution Width 21.4 Platelet Count 303 Mean Platelet Volume 8.4 Neutrophils (%) (Auto) 80.4 Lymphocytes (%) (Auto) 6.7 Monocytes (%) (Auto) 12.0 Eosinophils (%) (Auto) 0.2 Basophils (%) (Auto) 0.7 Neutrophils # (Auto) 5.6 Lymphocytes # (Auto) 0.5 Monocytes # (Auto) 0.8 Eosinophils # (Auto) 0.0 Basophils # (Auto) 0.1 CBC Comment DIFF FINAL Differential Comment Blood Urea Nitrogen 13 Creatinine 1.57 Random Glucose 97 Total Protein 7.5 Albumin 3.2 Calcium Level 8.6 Alkaline Phosphatase 58 Aspartate Amino Transf (AST/SGOT) 31 Alanine Aminotransferase (ALT/SGPT) 38 Total Bilirubin 0.4 Sodium Level 133 Potassium Level 4.0 Chloride Level 98 Carbon Dioxide Level 26.0 Anion Gap 9 Estimat Glomerular Filtration Rate 47 Total Creatine Kinase 689 Creatine Kinase MB 1.8 Creatine Kinase MB % 0.3 Troponin I 0.46 B-Type Natriuretic Peptide 444 Lactic Acid Level 0.8 Date/Time Source Procedure Growth Status 04/13/17 19:50 Blood Peripheral Aerobic Blood Culture Pending Received 04/13/17 19:50 Blood Peripheral Anaerobic Blood Culture Pending Received Result Diagram: 04/13/17193904/13/171939 Caprini VTE Risk Assessment Caprini VTE Risk Assessment: No/Low Risk (score <= 1) Caprini Risk Assessment Model Point Value = 1 Point Value = 2 Point Value = 3 Point Value = 5 Age 41-60 Minor surgery BMI > 25 kg/m2 Swollen legs Varicose veins or History of unexplained or recurrent spontaneous Oral contraceptives or hormone replacement Sepsis (< 1 month) Serious lung disease, including pneumonia (< 1 month) Abnormal pulmonary function Acute myocardial infarction Congestive heart failure (< 1 month) History of inflammatory bowel disease Medical patient at bed rest Age 61-74 Arthroscopic surgery Major open surgery (> 45 min) Laparoscopic surgery (> 45 min) Malignancy Confined to bed (> 72 hours) Immobilizing plaster cast Central venous access Age >= 75 History of VTE Family history of VTE Factor V Leiden Prothrombin [id number] Lupus anticoagulant Anticardiolipin antibodies Elevated serum homocysteine Heparin-induced thrombocytopenia Other congenital or acquired thrombophilia Stroke (< 1 month) Elective arthroplasty Hip, pelvis, or leg fracture Acute spinal cord injury (< 1 month) Prophylaxis Regimen Total Risk Factor Score Risk Level Prophylaxis Regimen 0-1 Low Early ambulation 2 Moderate Order ONE of the following: *Sequential Compression Device (SCD) *Heparin 5000 units SQ BID 3-4 Higher Order ONE of the following medications: *Heparin 5000 units SQ TID *Enoxaparin/Lovenox 40 mg SQ daily (WT < 150 kg, CrCl > 30 mL/min) *Enoxaparin/Lovenox 30 mg SQ daily (WT < 150 kg, CrCl > 10-29 mL/min) *Enoxaparin/Lovenox 30 mg SQ BID (WT < 150 kg, CrCl > 30 mL/min) AND/OR *Sequential Compression Device (SCD) 5 or more Highest Order ONE of the following medications: *Heparin 5000 units SQ TID (Preferred with Epidurals) *Enoxaparin/Lovenox 40 mg SQ daily (WT < 150 kg, CrCl > 30 mL/min) *Enoxaparin/Lovenox 30 mg SQ daily (WT < 150 kg, CrCl > 10-29 mL/min) *Enoxaparin/Lovenox 30 mg SQ BID (WT < 150 kg, CrCl > 30 mL/min) AND *Sequential Compression Device (SCD) Assessment and Plan Assessment and Plan Assessment/plan: 1. Hospital-acquired pneumonia Patient discharged on 04/07/17 where she was admitted to the ICU for hypertensive crisis and asthma exacerbation Chest x-ray showed for subsegmental infiltrate of the left lower lobe, images reviewed by me Lactic acid, WBCs within normal limits Blood cultures pending Vancomycin/Zosyn DuoNebs 2. Elevated troponin Patient with history of elevated troponin, currently at baseline EKG pending ACS rule out pending; serial troponins/EKGs 3. CKD Cr 1.57, baseline Monitor renal function Avoid nephrotoxic agents 4. CHF/hypertension/cardiomyopathy Continue home medications: Aspirin, Lasix, lisinopril, metoprolol, nifedipine, spironolactone, hydralazine FEN Heart healthy diet NS at 100 cc/hr Electrolytes: Monitor and replete prn SCDs Case discussed with the ER physician at length Physician Certification 2 Midnight Certification Type: Admission for Inpatient Services Order for Inpatient Services The services are ordered in accordance with Medicare regulations or non- Medicare payer requirements, as applicable. In the case of services not specified as inpatient-only, they are appropriately provided as inpatient services in accordance with the 2-midnight benchmark. Estimated LOS (days): 2 2 days is the estimated time the patient will need to remain in the hospital, assuming treatment plan goals are met and no additional complications. Post-Hospital Plan: Not yet determined Kalee Chance MD Apr 14, 2017 00:20
[2017-04-14] MEDS ORDERED: VANCOMYCIN INJ 1,000 MG in SODIUM CHLOR 0.9% 250 ML INJ 250 ML IV SCH (01:00)
[2017-04-14] MEDS ORDERED: VANCOMYCIN INJ 2,500 MG in SODIUM CHLORID 0.9% 500 ML INJ 500 ML IV ONE (01:00)
[2017-04-14] MEDS: PIPERACIL-TAZO 4.5 GM PREMIX 100 ML IV SCH ×4 (02:09→17:16)
[2017-04-14 03:19] LABS: AUTOMATED NEUTROPHIL # 3.8 TH/MM3 (1.8-7.7); BASOPHIL % 0.6 % (0.0-2.0); HEMO FLAGS DIFF FINAL; LYMPH % 9.6 % (9.0-44.0); LYMPHOCYTE # 0.5 TH/MM3 (1.0-4.8); MEAN CELL VOLUME 70.3 FL (80.0-100.0); MEAN CORPUSCULAR HEMOGLOBIN 22.7 PG (27.0-34.0); MEAN CORPUSCULAR HGB CONC 32.3 % (32.0-36.0); MONO % 13.4 % (0.0-8.0); NEUT % 76.4 % (16.0-70.0); PLATELET COUNT 264 TH/MM3 (150-450); RED BLOOD COUNT 4.26 MIL/MM3 (4.00-5.30); RED CELL DISTRIBUTION WIDTH 21.1 % (11.6-17.2)
[2017-04-14 03:31] LABS: BICARBONATE 27.6 MEQ/L (21.0-32.0); POTASSIUM 3.4 MEQ/L (3.5-5.1)
[2017-04-14 03:47] LABS: CKMB 2.6 NG/ML (0.5-3.6)
[2017-04-14] MEDS: POTASSIUM CHLORIDE 10 MEQ CONTROLLED RELEASE TAB PO SCH (08:41)
[2017-04-14] MEDS: NIFEdipine 30 MG SUSTAINED RELEASE TAB PO SCH (08:41)
[2017-04-14] MEDS: hydrALAZINE HCL 25 MG TAB PO SCH ×3 (08:41→17:16)
[2017-04-14] MEDS: ASPIRIN EC 81 MG TABEC PO SCH (08:41)
[2017-04-14] MEDS: SPIRONOLACTONE 25 MG TAB PO SCH (08:41)
[2017-04-14] MEDS: LISINOPRIL 20 MG TAB PO SCH (08:41)
[2017-04-14] MEDS: FUROSEMIDE 40 MG TAB PO SCH (08:41)
[2017-04-14] MEDS: METOPROLOL TARTRATE 50 MG TAB PO SCH ×2 (08:41→21:59)
[2017-04-14] MEDS: SODIUM CHLORIDE 0.9% FLUSH 10 ML FLUSH IV FLUSH SCH ×2 (08:42→21:59)
[2017-04-14] MEDS: SODIUM CHLOR 0.9% 1000 ML INJ 1,000 ML IV SCH (08:42)
--- NOTE | 2017-04-14 08:49 | EKG ---
Date Performed: 04/14/2017 Time Performed: 03:16:56 PTAGE: 31 years EKG: Sinus rhythm WITH FIRST DEGREE AV BLOCK POSSIBLE LEFT ATRIAL ENLARGEMENT LEFT VENTRICULAR HYPERTROPHY AND ST-T CH REUBEN ABNORMAL ECG Compared to prior electrocardiogram, rate has decreased PREVIOUS TRACING : 04/05/2017 11.44 DOCTOR: Chuy Norman Interpretating Date/Time 04/14/2017 08:47:50
[2017-04-14 12:22] LABS: CKMB 4.8 NG/ML (0.5-3.6)
[2017-04-14] MEDS ORDERED: oxyCODONE/ACETAMINOPHEN 5 MG/325 MG TAB PO PRN (15:45)
[2017-04-14] MEDS ORDERED: PROCHLORPERAZINE 25 MG SUPP RECTAL PRN (15:45)
[2017-04-14] MEDS ORDERED: NALOXONE HCL 0.4 MG/ML AMP IV PUSH PRN (15:45)
[2017-04-14] MEDS ORDERED: oxyCODONE/ACETAMINOPHEN 10 MG/325 MG TAB PO PRN (15:45)
[2017-04-14] MEDS ORDERED: SENNOSIDES 8.6 MG TAB PO PRN (15:45)
[2017-04-14] MEDS ORDERED: LACTULOSE SYRUP 20 GM/30 ML CUP PO PRN (15:45)
[2017-04-14] MEDS ORDERED: MAGNESIUM HYDROXIDE SUSP 30 ML CUP PO PRN (15:45)
[2017-04-14] MEDS ORDERED: BISACODYL 10 MG SUPP RECTAL PRN (15:45)
[2017-04-14] MEDS ORDERED: ONDANSETRON HCL 4 MG/2 ML VIAL IVP PRN (15:45)
[2017-04-14] MEDS ORDERED: SODIUM CHLORIDE 0.9% FLUSH 10 ML FLUSH IV FLUSH PRN (15:45)
[2017-04-14] MEDS ORDERED: ACETAMINOPHEN 325 MG TAB PO PRN ×2 (15:45)
[2017-04-14] MEDS ORDERED: RESP: ALBUTEROL 2.5 MG/IPRATROPIUM 0.5 MG NEB (PRN) NEB (17:00)
--- NOTE | 2017-04-14 17:00 | HHI.PR ---
Subjective Remarks 31-year-old female with a past medical history significant for hypertension, cardiomyopathy, CHF with an EF of 40% and asthma presents to the emergency department with a one to two-week history of fever/chills and dyspnea on exertion. The patient reports her symptoms have been worsening. She endorses a nonproductive cough. On arrival to the emergency department she was febrile to 102.8. No leukocytosis. Lactic acid 0.8. Chest x-ray significant for subsegmental infiltrate of the left lower lobe. Troponin was elevated at 0.46, patient has a history of elevated troponin. She denies any chest pain. She was discharged from the hospital on 04/07/17 where she was treated for hypertensive crisis and asthma exacerbation. 04-14 PATIENT COMPLAINS OF COUGH AND CONGESTION HAS POSITIVE TROPONINS WILL CONSULT CARDIOLOGY- SCHEDULED TO SEE DR SEYMOUR HAS LESS SOB, SOME PLEURITIC CHEST PAIN ON THE LEFT SIDE DW RN AND PT CONSULT CARDIOLOGY ADD MUCINEX AND INCENTIVE SPIROMETRY Objective Vitals Vital Signs Date Time Temp Pulse Resp B/P (MAP) Pulse Ox O2 Delivery O2 Flow Rate FiO2 04/14/17 15:17 100.1 91 18 169/89 (115) 96 04/14/17 15:00 92 04/14/17 11:32 100.2 86 18 163/85 (111) 97 04/14/17 08:00 86 04/14/17 07:12 98.3 83 18 142/85 (104) 95 04/14/17 04:23 98.1 88 22 131/68 (89) 95 04/14/17 00:17 100.4 95 20 124/74 (91) 96 04/14/17 00:06 04/13/17 23:58 98 04/13/17 23:47 101.2 98 18 136/75 (95) 98 Room Air 04/13/17 22:24 103.1 103 18 174/99 (124) 98 Room Air 04/13/17 19:32 19 98 Room Air 04/13/17 19:32 98 Nasal Cannula 2.00 04/13/17 19:32 103 19 98 Room Air 04/13/17 18:50 102.8 105 16 183/98 (126) 97 Room Air I/O 04/13/17 04/13/17 04/13/17 04/14/17 04/14/17 04/14/17 07:00 15:00 23:00 07:00 15:00 23:00 Intake Total 440 ml 100 ml 200 ml Balance 440 ml 100 ml 200 ml Intake Oral 240 ml IV Total 200 ml 100 ml 200 ml # Voids 3 Result Diagram: 04/14/17 0258 04/14/17 0258 Other Results Laboratory Tests Test 04/13/17 19:40 04/13/17 19:50 04/14/17 02:58 04/14/17 09:16 White Blood Count 7.0 TH/MM3 5.0 TH/MM3 Red Blood Count 4.62 MIL/MM3 4.26 MIL/MM3 Hemoglobin 10.2 GM/DL 9.7 GM/DL Hematocrit 32.7 % 30.0 % Mean Corpuscular Volume 70.7 FL 70.3 FL Mean Corpuscular Hemoglobin 22.1 PG 22.7 PG Mean Corpuscular Hemoglobin Concent 31.3 % 32.3 % Red Cell Distribution Width 21.4 % 21.1 % Platelet Count 303 TH/MM3 264 TH/MM3 Mean Platelet Volume 8.4 FL 8.6 FL Neutrophils (%) (Auto) 80.4 % 76.4 % Lymphocytes (%) (Auto) 6.7 % 9.6 % Monocytes (%) (Auto) 12.0 % 13.4 % Eosinophils (%) (Auto) 0.2 % 0.0 % Basophils (%) (Auto) 0.7 % 0.6 % Neutrophils # (Auto) 5.6 TH/MM3 3.8 TH/MM3 Lymphocytes # (Auto) 0.5 TH/MM3 0.5 TH/MM3 Monocytes # (Auto) 0.8 TH/MM3 0.7 TH/MM3 Eosinophils # (Auto) 0.0 TH/MM3 0.0 TH/MM3 Basophils # (Auto) 0.1 TH/MM3 0.0 TH/MM3 CBC Comment DIFF FINAL DIFF FINAL Differential Comment Blood Urea Nitrogen 13 MG/DL 17 MG/DL Creatinine 1.57 MG/DL 1.71 MG/DL Random Glucose 97 MG/DL 110 MG/DL Total Protein 7.5 GM/DL Albumin 3.2 GM/DL Calcium Level 8.6 MG/DL 8.4 MG/DL Alkaline Phosphatase 58 U/L Aspartate Amino Transf (AST/SGOT) 31 U/L Alanine Aminotransferase (ALT/SGPT) 38 U/L Total Bilirubin 0.4 MG/DL Sodium Level 133 MEQ/L 137 MEQ/L Potassium Level 4.0 MEQ/L 3.4 MEQ/L Chloride Level 98 MEQ/L 102 MEQ/L Carbon Dioxide Level 26.0 MEQ/L 27.6 MEQ/L Anion Gap 9 MEQ/L 7 MEQ/L Estimat Glomerular Filtration Rate 47 ML/MIN 43 ML/MIN Total Creatine Kinase 689 U/L 843 U/L 1121 U/L Creatine Kinase MB 1.8 NG/ML 2.6 NG/ML 4.8 NG/ML Creatine Kinase MB % 0.3 % 0.3 % 0.4 % Troponin I 0.46 NG/ML 0.48 NG/ML 0.54 NG/ML B-Type Natriuretic Peptide 444 PG/ML Lactic Acid Level 0.8 mmol/L Test 04/14/17 16:37 Imaging Last Impressions Chest X-Ray 04/13/171925 Signed Impressions: Service Date/Time: Thursday, April 13, 2017 19:46 - CONCLUSION: 1. Panchamber cardiomegaly 2. Subsegmental infiltrate left lower lobe. Alexey Jarvis MD Objective Remarks GENERAL: Awake alert oriented 3 talkative and cooperative morbidly obese SKIN: Warm and dry. HEAD: Atraumatic. Normocephalic. EYES: Pupils equal and round. No scleral icterus. No injection or drainage. Attractive muscles intact ENT: No nasal bleeding or discharge. Mucous membranes pink and moist. Tongue is midline NECK: Trachea midline. No JVD. Supple CARDIOVASCULAR: Regular rate and rhythm. S1 and S2 no S3 or S4 RESPIRATORY: No accessory muscle use. . Breath sounds equal bilaterally. Decreased breath sounds throughout some scattered rhonchi on the left side GASTROINTESTINAL: Abdomen soft, non-tender, nondistended. Hepatic and splenic margins not palpable. Morbidly obese MUSCULOSKELETAL: Extremities without clubbing, cyanosis, or edema. No obvious deformities. NEUROLOGICAL: Awake and alert. No obvious cranial nerve deficits. Motor grossly within normal limits. Five out of 5 muscle strength in the arms and legs. Normal speech. PSYCHIATRIC: Appropriate mood and affect; insight and judgment normal. Procedures NONE Medications and IVs Current Medications Sodium Chloride (NS Flush) 2 ml UNSCH PRN IVF FLUSH AFTER USING IV ACCESS; Start 04/13/17 at 19:30; Status Cancel Albuterol/ Ipratropium (Duoneb Neb) 1 ampule ONCE ONCE INH Last administered on 04/13/17 19:52; Start 04/13/17 at 19:30; Stop 04/13/17 at 19:31; Status DC Albuterol Sulfate (Albuterol Neb) 2.5 mg Q15M INH Last administered on 19:49; Start 04/13/17 at 19:30; Stop 04/13/17 at 19:46; Status DC Ceftriaxone Sodium 1000 mg/ Sodium Chloride 100 ml @ 200 mls/hr ONCE ONCE IV Last administered on 04/13/17 22:49; Start 04/13/17 at 22:45; Stop 04/13/17 at 23:14; Status DC Azithromycin 500 mg/Sodium Chloride 250 ml @ 250 mls/hr ONCE ONCE IV Last administered on 04/13/17 23:33; Start 04/13/17 at 22:45; Stop 04/13/17 at 23 :44; Status DC Ibuprofen (Motrin) 800 mg ONCE ONCE PO Last administered on 04/13/17 22:46; Start 04/13/17 at 22:45; Stop 04/13/17 at 22:46; Status DC Sodium Chloride 1,000 ml @ 100 mls/hr Q10H IV Last administered on 04/14/17 08:42; Start 04/13/17 at 22:45 Morphine Sulfate (Morphine Inj) 2 mg ONCE ONCE IV PUSH Last administered on 22:46; Start 04/13/17 at 22:45; Stop 04/13/17 at 22:46; Status DC Sodium Chloride (NS Flush) 2 ml UNSCH PRN IV FLUSH FLUSH AFTER USING IV ACCESS ; Start 04/13/17 at 23:00 Sodium Chloride (NS Flush) 2 ml BID IV FLUSH Last administered on 04/14/17 08 :42; Start 04/14/17 at 09:00 Ceftriaxone Sodium 1000 mg/ Sodium Chloride 100 ml @ 200 mls/hr Q24H IV ; Start 04/14/17 at 20:00; Stop 04/14/17 at 20:00; Status DC Azithromycin (Zithromax) 500 mg Q24H PO ; Start 04/14/17 at 20:00; Stop at 20:00; Status DC Albuterol/ Ipratropium (Duoneb Neb) 1 ampule Q4HR NEB PRN INH SHORTNESS OF BREATH Last administered on 04/14/17 04:47; Start 04/13/17 at 23:00 Aspirin (Ecotrin Ec) 81 mg DAILY PO Last administered on 04/14/17 08:41; Start 04/14/17 at 09:00 Furosemide (Lasix) 40 mg DAILY PO Last administered on 04/14/17 08:41; Start 04/14/17 at 09:00 Hydralazine HCl (Apresoline) 5 mg TID PO Last administered on 04/14/17 12:03 ; Start 04/14/17 at 09:00 Lisinopril (Prinivil) 20 mg DAILY PO Last administered on 04/14/17 08:41; Start 04/14/17 at 09:00 Metoprolol Tartrate (Lopressor) 50 mg BID PO Last administered on 04/14/17 08 :41; Start 04/14/17 at 09:00 Nifedipine (Procardia Xl) 30 mg DAILY PO Last administered on 04/14/17 08:41 ; Start 04/14/17 at 09:00 Potassium Chloride (KCl) 10 meq DAILY PO Last administered on 04/14/17 08:41 ; Start 04/14/17 at 09:00 Spironolactone (Aldactone) 25 mg DAILY PO Last administered on 04/14/17 08:41 ; Start 04/14/17 at 09:00 Pharmacy Profile Note 0 ml @ 0 mls/hr UNSCH OTHER ; Start 04/14/17 at 00:00 Vancomycin HCl 1000 mg/Sodium Chloride 250 ml @ 250 mls/hr Q12H IV ; Start at 01:00; Status Cancel Piperacillin Sod/ Tazobactam Sod 100 ml @ 200 mls/hr Q6H IV Last administered on 04/14/17 12:00; Start 04/14/17 at 00:00 Vancomycin HCl 2500 mg/Sodium Chloride 525 ml @ 250 mls/hr ONCE ONCE IV Last administered on 04/14/17 03:19; Start 04/14/17 at 01:00; Stop 04/14/17 at 03 :05; Status DC Vancomycin HCl 2500 mg/Sodium Chloride 525 ml @ 250 mls/hr Q24H IV ; Start at 03:00 Miscellaneous Information SPECIFIC LAB TO BE DRAWN:VANCOMYCIN TROUGH DATE TO... ONCE ONCE .XX ; Start 04/17/17 at 02:45; Stop 04/17/17 at 02:46 Sodium Chloride (NS Flush) 2 ml UNSCH PRN IV FLUSH FLUSH AFTER USING IV ACCESS ; Start 04/14/17 at 15:45; Stop 04/14/17 at 16:36; Status DC Sodium Chloride (NS Flush) 2 ml BID IV FLUSH ; Start 04/14/17 at 21:00; Stop 04/14/17 at 21:00; Status DC Acetaminophen (Tylenol) 650 mg Q4H PRN PO TEMP > 100.4; Start 04/14/17 at 15: 45 Ondansetron HCl (Zofran Inj) 4 mg Q6H PRN IVP NAUSEA OR VOMITING; Start at 15:45; Status UNV Prochlorperazine (Compazine Supp) [address] NAUSEA OR VOMITING; Start 04/14/17 at 15:45; Status UNV Enoxaparin Sodium (Lovenox Inj) 40 mg Q24H SQ ; Start 04/14/17 at 15:45; Status UNV Acetaminophen (Tylenol) 650 mg Q6H PRN PO PAIN SCALE 1 TO 2; Start 04/14/17 at 15:45 Oxycodone/ Acetaminophen (Percocet 5-325 Mg) 1 tab Q6H PRN PO PAIN SCALE 3 TO 5; Start 04/14/17 at 15:45 Oxycodone/ Acetaminophen (Percocet 10-325 Mg) 1 tab Q6H PRN PO PAIN SCALE 6 TO 10; Start 04/14/17 at 15:45 Naloxone HCl (Narcan Inj) 0.4 mg UNSCH PRN IV PUSH SEE LABEL COMMENTS; Start 04/14/17 at 15:45 Senna/Docusate Sodium (Belkis-Colace) 1 tab BID PO ; Start 04/14/17 at 21:00; Status UNV Magnesium Hydroxide (Milk Of Magnesia Liq) 30 ml Q12H PRN PO Mild constipation ; Start 04/14/17 at 15:45; Status UNV Sennosides (Senokot) 17.2 mg Q12H PRN PO Moderate constipation; Start at 15:45; Status UNV Bisacodyl (Dulcolax Supp) 10 mg DAILY PRN RECTAL SEVERE CONSITIPATION; Start 04/14/17 at 15:45; Status UNV Lactulose (Lactulose Liq) 30 ml DAILY PRN PO SEVERE CONSITIPATION; Start 04/14 at 15:45; Status UNV Urinary Catheter: No A/P Problem List: (1) Elevated troponin ICD Code: R79.89 - Other specified abnormal findings of blood chemistry Status: Acute (2) Pneumonia ICD Code: J18.9 - Pneumonia, unspecified organism Status: Acute (3) Hypertensive emergency ICD Code: I10 - Essential (primary) hypertension Status: Acute (4) Asthma ICD Code: J45.909 - Unspecified asthma, uncomplicated (5) CHF (congestive heart failure) ICD Code: I50.9 - Heart failure, unspecified (6) YOLY (acute kidney injury) ICD Code: N17.9 - Acute kidney failure, unspecified Status: Acute (7) HTN (hypertension) ICD Code: I10 - Essential (primary) hypertension (8) Hypoxia ICD Code: R09.02 - Hypoxemia Assessment and Plan 1. Hospital-acquired pneumonia Patient discharged on 04/07/17 where she was admitted to the ICU for hypertensive crisis and asthma exacerbation Chest x-ray showed for subsegmental infiltrate of the left lower lobe, images reviewed by me Lactic acid, WBCs within normal limits Blood cultures pending Vancomycin/Zosyn DuoNebs Add Mucinex twice a day Add incentive spirometry 2. Elevated troponin Patient with history of elevated troponin, currently at baseline EKG pending ACS rule out pending; serial troponins/EKGs Consult cardiology Dr. seymour since she was to follow up with him in the office this week 3. CKD Cr 1.57, baseline Monitor renal function Avoid nephrotoxic agents A.m. labs 4. CHF/hypertension/cardiomyopathy Continue home medications: Aspirin, Lasix, lisinopril, metoprolol, nifedipine, spironolactone, hydralazine FEN Heart healthy diet NS at 100 cc/hr Electrolytes: Monitor and replete prn SCDs Discharge Planning Pending improvement of pneumonia Selvin Kilgore DO Apr 14, 2017 17:00
[2017-04-14] MEDS: ENOXAPARIN SODIUM 40 MG/0.4 ML SYRINGE SQ SCH (17:16)
[2017-04-14] MEDS: guaiFENesin E.R. 600 MG TAB PO SCH ×2 (17:16→21:59)
[2017-04-14] MEDS ORDERED: AZITHROMYCIN 250 MG TAB PO SCH (20:00)
[2017-04-14] MEDS ORDERED: cefTRIAXone INJ 1,000 MG in SODIUM CHLORIDE 0.9% INJ 100 ML IV SCH (20:00)
[2017-04-14] MEDS ORDERED: SODIUM CHLORIDE 0.9% FLUSH 10 ML FLUSH IV FLUSH SCH (21:00)
[2017-04-14] MEDS: DOCUSATE SODIUM 50 MG/SENNA 8.6 MG TAB PO SCH (21:59)
--- NOTE | 2017-04-14 22:29 | MB ---
cc: AKHIL SWENSON DATE OF CONSULTATION 04/14/2017 HISTORY A 31-year-old black female with a history of hypertension, cardiomyopathy with ejection fraction 40%, and asthma. She has had a 2-week history of fevers, chills and shortness of breath. She has not had any chest pain. She has a history of mildly elevated troponin and again has had elevated troponin during this hospitalization. PAST MEDICAL HISTORY Positive for: 1. Hypertension. 2. Hypertensive crisis. 3. Asthma. 4. Cardiomyopathy. 5. Congestive heart failure, ejection fraction of 40%. MEDICATIONS 1. Lisinopril. 3. Aspirin. 4. Lasix. 5. Potassium chloride. 6. Spironolactone. 7. Hydralazine. 8. Metoprolol. ALLERGIES SHELLFISH. SOCIAL HISTORY The patient does not smoke. She does not drink alcohol. FAMILY HISTORY Negative for heart disease. REVIEW OF SYSTEMS Otherwise negative. PHYSICAL EXAMINATION VITAL SIGNS: Blood pressure 150/78, pulse 91 and regular. HEENT: Negative. 2+ carotid upstrokes. No bruits. LUNGS: With diminished breath sounds. HEART: Regular with no murmur gallop. ABDOMEN: Soft. No bruits. EXTREMITIES: With mild edema. 1-2+ distal pulses. NEUROLOGIC: Grossly nonfocal. EKG was reviewed and showed normal sinus rhythm with normal axis and intervals and nonspecific ST-T changes. LABORATORY DATA Hemoglobin 9.7. Potassium 3.4, creatinine 1.71. CK 843, 1121, 1281. CK MB index normal. Troponin 0.48, 0.54, 0.63. Chest x-ray positive for left pleural infiltrate. DIAGNOSES 1. Pneumonia. 2. Mildly elevated troponin. 3. Chronic kidney disease. 4. Congestive heart failure. 5. Hypertensive cardiomyopathy. 6. Morbid obesity. DISPOSITION Ms. Schulz will be monitored on telemetry. We will continue and titrate medications for congestive heart failure. We will obtain echocardiogram to evaluate her left ventricular function. She will be treated for pneumonia with antibiotics. I will follow her for cardiology during her hospitalization. Akhil Swenson MD OQ/KK /5:42 PM /10:06 PM [facility]
[2017-04-14 22:47] LABS: CKMB 4.3 NG/ML (0.5-3.6)
[2017-04-15] VITALS (13 sets, daily range): BP systolic 128–175; BP diastolic 60–100; PULSE 72–98; RESP 20–22; TEMP 97.9–103; O2SAT 85–98
[2017-04-15] MEDS: PIPERACIL-TAZO 4.5 GM PREMIX 100 ML IV SCH ×5 (00:21→23:53)
[2017-04-15] MEDS: VANCOMYCIN INJ 2,500 MG in SODIUM CHLORID 0.9% 500 ML INJ 500 ML IV SCH (04:04)
[2017-04-15 04:19] LABS: AUTOMATED NEUTROPHIL # 4.8 TH/MM3 (1.8-7.7); BASOPHIL % 0.6 % (0.0-2.0); EOSINOPHIL % 0.3 % (0.0-4.0); HEMATOCRIT 30.9 % (35.0-46.0); HEMO FLAGS DIFF FINAL; LYMPH % 9.2 % (9.0-44.0); LYMPHOCYTE # 0.6 TH/MM3 (1.0-4.8); MEAN CELL VOLUME 70.7 FL (80.0-100.0); MEAN CORPUSCULAR HEMOGLOBIN 22.5 PG (27.0-34.0); MEAN CORPUSCULAR HGB CONC 31.9 % (32.0-36.0); MONO % 12.9 % (0.0-8.0); PLATELET COUNT 260 TH/MM3 (150-450); RED BLOOD COUNT 4.37 MIL/MM3 (4.00-5.30); RED CELL DISTRIBUTION WIDTH 21.2 % (11.6-17.2); WHITE BLOOD COUNT 6.2 TH/MM3 (4.0-11.0)
[2017-04-15 04:49] LABS: ANION GAP 7 MEQ/L (5-15); AST (GOT) 46 U/L (15-37); BICARBONATE 27.2 MEQ/L (21.0-32.0); BLOOD UREA NITROGEN 18 MG/DL (7-18); CHLORIDE 105 MEQ/L (98-107); GLOMERULAR FILTRATION RATE 41 ML/MIN (>89); MAGNESIUM 2.1 MG/DL (1.5-2.5); POTASSIUM 4.4 MEQ/L (3.5-5.1); SODIUM (NA) 139 MEQ/L (136-145)
[2017-04-15 04:56] LABS: ALKALINE PHOSPHATASE 51 U/L (45-117); ALT (GPT) 42 U/L (10-53); FREE T4 1.07 NG/DL (0.76-1.46); TOTAL BILIRUBIN ADULT 0.3 MG/DL (0.2-1.0)
[2017-04-15] MEDS: SODIUM CHLOR 0.9% 1000 ML INJ 1,000 ML IV SCH ×4 (07:43→23:52)
[2017-04-15] MEDS: SODIUM CHLORIDE 0.9% FLUSH 10 ML FLUSH IV FLUSH SCH ×2 (09:00→21:00)
[2017-04-15] MEDS: NIFEdipine 30 MG SUSTAINED RELEASE TAB PO SCH (10:16)
[2017-04-15] MEDS: METOPROLOL TARTRATE 50 MG TAB PO SCH ×2 (10:16→21:54)
[2017-04-15] MEDS: DOCUSATE SODIUM 50 MG/SENNA 8.6 MG TAB PO SCH ×2 (10:16→20:36)
[2017-04-15] MEDS: guaiFENesin E.R. 600 MG TAB PO SCH ×2 (10:17→21:54)
[2017-04-15] MEDS: ASPIRIN EC 81 MG TABEC PO SCH (10:18)
[2017-04-15] MEDS: SPIRONOLACTONE 25 MG TAB PO SCH (10:18)
[2017-04-15] MEDS: hydrALAZINE HCL 25 MG TAB PO SCH ×3 (10:18→18:22)
[2017-04-15] MEDS: LISINOPRIL 20 MG TAB PO SCH (10:19)
[2017-04-15] MEDS: POTASSIUM CHLORIDE 10 MEQ CONTROLLED RELEASE TAB PO SCH (10:19)
[2017-04-15] MEDS: FUROSEMIDE 40 MG TAB PO SCH (10:19)
[2017-04-15 13:57] LABS: HEMOGLOBIN A1a 2.6 %; HEMOGLOBIN A1b 1.4 %; HEMOGLOBIN LA1C 1.7 %; HEMOGLOBIN P3 3.4 %
--- NOTE | 2017-04-15 14:14 | HHI.PR ---
Subjective Remarks 31-year-old female with a past medical history significant for hypertension, cardiomyopathy, CHF with an EF of 40% and asthma presents to the emergency department with a one to two-week history of fever/chills and dyspnea on exertion. The patient reports her symptoms have been worsening. She endorses a nonproductive cough. On arrival to the emergency department she was febrile to 102.8. No leukocytosis. Lactic acid 0.8. Chest x-ray significant for subsegmental infiltrate of the left lower lobe. Troponin was elevated at 0.46, patient has a history of elevated troponin. She denies any chest pain. She was discharged from the hospital on 04/07/17 where she was treated for hypertensive crisis and asthma exacerbation. 04-14 PATIENT COMPLAINS OF COUGH AND CONGESTION HAS POSITIVE TROPONINS WILL CONSULT CARDIOLOGY- SCHEDULED TO SEE DR SEYMOUR HAS LESS SOB, SOME PLEURITIC CHEST PAIN ON THE LEFT SIDE DW RN AND PT CONSULT CARDIOLOGY ADD MUCINEX AND INCENTIVE SPIROMETRY 04-15 STILL COUGH AND CONGESTION HAD FEVERS UP UNTIL THIS MORNING HAS NOT HAD ECHO YET DW RN AND PT CONTINUE ANTIBIOTICS NOT BEEN CLEARED BY CARDIOLOGY Objective Vitals Vital Signs Date Time Temp Pulse Resp B/P (MAP) Pulse Ox O2 Delivery O2 Flow Rate FiO2 04/15/17 12:15 98.2 86 20 175/100 (125) 96 04/15/17 08:30 97.9 72 20 96 04/15/17 08:30 72 20 134/60 (84) 98 04/15/17 04:48 90 04/15/17 04:33 100.4 90 22 132/74 (93) 93 04/15/17 02:05 94 21 04/15/17 01:58 16 04/15/17 01:54 100.6 04/15/17 00:32 103.0 98 22 143/89 (107) 95 04/14/17 22:51 100.1 103 22 163/90 (114) 98 04/14/17 17:14 99.5 150/78 (102) 04/14/17 15:17 100.1 91 18 169/89 (115) 96 04/14/17 15:00 92 I/O 04/14/17 04/14/17 04/14/17 04/15/17 04/15/17 04/15/17 07:00 15:00 23:00 07:00 15:00 23:00 Intake Total 100 ml 200 ml 2150 ml 550 ml Output Total 1200 ml 3 ml Balance 100 ml 200 ml 950 ml 547 ml Intake Oral 850 ml 450 ml IV Total 100 ml 200 ml 1300 ml 100 ml Output Urine Total 1200 ml 3 ml Result Diagram: 04/15/17 0351 04/15/17 0351 Other Results Laboratory Tests Test 04/13/17 19:40 04/13/17 19:50 04/14/17 02:58 04/14/17 09:16 White Blood Count 7.0 TH/MM3 5.0 TH/MM3 Red Blood Count 4.62 MIL/MM3 4.26 MIL/MM3 Hemoglobin 10.2 GM/DL 9.7 GM/DL Hematocrit 32.7 % 30.0 % Mean Corpuscular Volume 70.7 FL 70.3 FL Mean Corpuscular Hemoglobin 22.1 PG 22.7 PG Mean Corpuscular Hemoglobin Concent 31.3 % 32.3 % Red Cell Distribution Width 21.4 % 21.1 % Platelet Count 303 TH/MM3 264 TH/MM3 Mean Platelet Volume 8.4 FL 8.6 FL Neutrophils (%) (Auto) 80.4 % 76.4 % Lymphocytes (%) (Auto) 6.7 % 9.6 % Monocytes (%) (Auto) 12.0 % 13.4 % Eosinophils (%) (Auto) 0.2 % 0.0 % Basophils (%) (Auto) 0.7 % 0.6 % Neutrophils # (Auto) 5.6 TH/MM3 3.8 TH/MM3 Lymphocytes # (Auto) 0.5 TH/MM3 0.5 TH/MM3 Monocytes # (Auto) 0.8 TH/MM3 0.7 TH/MM3 Eosinophils # (Auto) 0.0 TH/MM3 0.0 TH/MM3 Basophils # (Auto) 0.1 TH/MM3 0.0 TH/MM3 CBC Comment DIFF FINAL DIFF FINAL Differential Comment Blood Urea Nitrogen 13 MG/DL 17 MG/DL Creatinine 1.57 MG/DL 1.71 MG/DL Random Glucose 97 MG/DL 110 MG/DL Total Protein 7.5 GM/DL Albumin 3.2 GM/DL Calcium Level 8.6 MG/DL 8.4 MG/DL Alkaline Phosphatase 58 U/L Aspartate Amino Transf (AST/SGOT) 31 U/L Alanine Aminotransferase (ALT/SGPT) 38 U/L Total Bilirubin 0.4 MG/DL Sodium Level 133 MEQ/L 137 MEQ/L Potassium Level 4.0 MEQ/L 3.4 MEQ/L Chloride Level 98 MEQ/L 102 MEQ/L Carbon Dioxide Level 26.0 MEQ/L 27.6 MEQ/L Anion Gap 9 MEQ/L 7 MEQ/L Estimat Glomerular Filtration Rate 47 ML/MIN 43 ML/MIN Total Creatine Kinase 689 U/L 843 U/L 1121 U/L Creatine Kinase MB 1.8 NG/ML 2.6 NG/ML 4.8 NG/ML Creatine Kinase MB % 0.3 % 0.3 % 0.4 % Troponin I 0.46 NG/ML 0.48 NG/ML 0.54 NG/ML B-Type Natriuretic Peptide 444 PG/ML Lactic Acid Level 0.8 mmol/L Test 04/14/17 16:37 04/14/17 20:51 04/15/17 03:51 04/15/17 04:01 Total Creatine Kinase 1281 U/L 1245 U/L Creatine Kinase MB 6.0 NG/ML 4.3 NG/ML Creatine Kinase MB % 0.5 % 0.3 % Troponin I 0.63 NG/ML 0.66 NG/ML White Blood Count 6.2 TH/MM3 Red Blood Count 4.37 MIL/MM3 Hemoglobin 9.9 GM/DL Hematocrit 30.9 % Mean Corpuscular Volume 70.7 FL Mean Corpuscular Hemoglobin 22.5 PG Mean Corpuscular Hemoglobin Concent 31.9 % Red Cell Distribution Width 21.2 % Platelet Count 260 TH/MM3 Mean Platelet Volume 8.4 FL Neutrophils (%) (Auto) 77.0 % Lymphocytes (%) (Auto) 9.2 % Monocytes (%) (Auto) 12.9 % Eosinophils (%) (Auto) 0.3 % Basophils (%) (Auto) 0.6 % Neutrophils # (Auto) 4.8 TH/MM3 Lymphocytes # (Auto) 0.6 TH/MM3 Monocytes # (Auto) 0.8 TH/MM3 Eosinophils # (Auto) 0.0 TH/MM3 Basophils # (Auto) 0.0 TH/MM3 CBC Comment DIFF FINAL Differential Comment Blood Urea Nitrogen 18 MG/DL Creatinine 1.77 MG/DL Random Glucose 85 MG/DL Total Protein 7.0 GM/DL Albumin 3.1 GM/DL Calcium Level 8.5 MG/DL Phosphorus Level 4.0 MG/DL Magnesium Level 2.1 MG/DL Alkaline Phosphatase 51 U/L Aspartate Amino Transf (AST/SGOT) 46 U/L Alanine Aminotransferase (ALT/SGPT) 42 U/L Total Bilirubin 0.3 MG/DL Sodium Level 139 MEQ/L Potassium Level 4.4 MEQ/L Chloride Level 105 MEQ/L Carbon Dioxide Level 27.2 MEQ/L Anion Gap 7 MEQ/L Estimat Glomerular Filtration Rate 41 ML/MIN Free Thyroxine 1.07 NG/DL Thyroid Stimulating Hormone 3rd Gen 0.336 uIU/ML Lactic Acid Level 0.6 mmol/L Imaging Last Impressions Chest X-Ray 04/13/[id number] Signed Impressions: Service Date/Time: Thursday, April 13, 2017 19:46 - CONCLUSION: 1. Panchamber cardiomegaly 2. Subsegmental infiltrate left lower lobe. Alexey Jarvis MD Objective Remarks GENERAL: Awake alert oriented 3 talkative and cooperative morbidly obese SKIN: Warm and dry. HEAD: Atraumatic. Normocephalic. EYES: Pupils equal and round. No scleral icterus. No injection or drainage. Attractive muscles intact ENT: No nasal bleeding or discharge. Mucous membranes pink and moist. Tongue is midline NECK: Trachea midline. No JVD. Supple CARDIOVASCULAR: Regular rate and rhythm. S1 and S2 no S3 or S4 RESPIRATORY: No accessory muscle use. . Breath sounds equal bilaterally. Decreased breath sounds throughout some scattered rhonchi on the left side GASTROINTESTINAL: Abdomen soft, non-tender, nondistended. Hepatic and splenic margins not palpable. Morbidly obese MUSCULOSKELETAL: Extremities without clubbing, cyanosis, or edema. No obvious deformities. NEUROLOGICAL: Awake and alert. No obvious cranial nerve deficits. Motor grossly within normal limits. Five out of 5 muscle strength in the arms and legs. Normal speech. PSYCHIATRIC: Appropriate mood and affect; insight and judgment normal. Procedures NONE Medications and IVs Current Medications Sodium Chloride (NS Flush) 2 ml UNSCH PRN IVF FLUSH AFTER USING IV ACCESS; Start 04/13/17 at 19:30; Status Cancel Albuterol/ Ipratropium (Duoneb Neb) 1 ampule ONCE ONCE INH Last administered on 04/13/17t 19:52; Start 04/13/17 at 19:30; Stop 04/13/17 at 19:31; Status DC Albuterol Sulfate (Albuterol Neb) 2.5 mg Q15M INH Last administered on 19:49; Start 04/13/17 at 19:30; Stop 04/13/17 at 19:46; Status DC Ceftriaxone Sodium 1000 mg/ Sodium Chloride 100 ml @ 200 mls/hr ONCE ONCE IV Last administered on 04/13/17 22:49; Start 04/13/17 at 22:45; Stop 04/13/17 at 23:14; Status DC Azithromycin 500 mg/Sodium Chloride 250 ml @ 250 mls/hr ONCE ONCE IV Last administered on 04/13/17 23:33; Start 04/13/17 at 22:45; Stop 04/13/17 at 23 :44; Status DC Ibuprofen (Motrin) 800 mg ONCE ONCE PO Last administered on 04/13/17 22:46; Start 04/13/17 at 22:45; Stop 04/13/17 at 22:46; Status DC Sodium Chloride 1,000 ml @ 100 mls/hr Q10H IV Last administered on 04/15/17 12:53; Start 04/13/17 at 22:45 Morphine Sulfate (Morphine Inj) 2 mg ONCE ONCE IV PUSH Last administered on 22:46; Start 04/13/17 at 22:45; Stop 04/13/17 at 22:46; Status DC Sodium Chloride (NS Flush) 2 ml UNSCH PRN IV FLUSH FLUSH AFTER USING IV ACCESS ; Start 04/13/17 at 23:00 Sodium Chloride (NS Flush) 2 ml BID IV FLUSH Last administered on 04/14/17 21 :59; Start 04/14/17 at 09:00 Ceftriaxone Sodium 1000 mg/ Sodium Chloride 100 ml @ 200 mls/hr Q24H IV ; Start 04/14/17 at 20:00; Stop 04/14/17 at 20:00; Status DC Azithromycin (Zithromax) 500 mg Q24H PO ; Start 04/14/17 at 20:00; Stop at 20:00; Status DC Albuterol/ Ipratropium (Duoneb Neb) 1 ampule Q4HR NEB PRN INH SHORTNESS OF BREATH Last administered on 04/14/17 04:47; Start 04/13/17 at 23:00 Aspirin (Ecotrin Ec) 81 mg DAILY PO Last administered on 04/15/17 10:18; Start 04/14/17 at 09:00 Furosemide (Lasix) 40 mg DAILY PO Last administered on 04/15/17 10:19; Start 04/14/17 at 09:00 Hydralazine HCl (Apresoline) 5 mg TID PO Last administered on 04/15/17 12:55 ; Start 04/14/17 at 09:00 Lisinopril (Prinivil) 20 mg DAILY PO Last administered on 04/15/17 10:19; Start 04/14/17 at 09:00 Metoprolol Tartrate (Lopressor) 50 mg BID PO Last administered on 04/15/17 10 :16; Start 04/14/17 at 09:00 Nifedipine (Procardia Xl) 30 mg DAILY PO Last administered on 04/15/17 10:16 ; Start 04/14/17 at 09:00 Potassium Chloride (KCl) 10 meq DAILY PO Last administered on 04/15/17 10:19 ; Start 04/14/17 at 09:00 Spironolactone (Aldactone) 25 mg DAILY PO Last administered on 04/15/17 10:18 ; Start 04/14/17 at 09:00 Pharmacy Profile Note 0 ml @ 0 mls/hr UNSCH OTHER ; Start 04/14/17 at 00:00 Vancomycin HCl 1000 mg/Sodium Chloride 250 ml @ 250 mls/hr Q12H IV ; Start at 01:00; Status Cancel Piperacillin Sod/ Tazobactam Sod 100 ml @ 200 mls/hr Q6H IV Last administered on 04/15/17 12:55; Start 04/14/17 at 00:00 Vancomycin HCl 2500 mg/Sodium Chloride 525 ml @ 250 mls/hr ONCE ONCE IV Last administered on 04/14/17 03:19; Start 04/14/17 at 01:00; Stop 04/14/17 at 03 :05; Status DC Vancomycin HCl 2500 mg/Sodium Chloride 525 ml @ 250 mls/hr Q24H IV Last administered on 04/15/17 04:04; Start 04/15/17 at 03:00 Miscellaneous Information SPECIFIC LAB TO BE DRAWN:VANCOMYCIN TROUGH DATE TO... ONCE ONCE .XX ; Start 04/17/17 at 02:45; Stop 04/17/17 at 02:46 Sodium Chloride (NS Flush) 2 ml UNSCH PRN IV FLUSH FLUSH AFTER USING IV ACCESS ; Start 04/14/17 at 15:45; Stop 04/14/17 at 16:36; Status DC Sodium Chloride (NS Flush) 2 ml BID IV FLUSH ; Start 04/14/17 at 21:00; Stop 04/14/17 at 21:00; Status DC Acetaminophen (Tylenol) 650 mg Q4H PRN PO TEMP > 100.4 Last administered on 00:58; Start 04/14/17 at 15:45 Ondansetron HCl (Zofran Inj) 4 mg Q6H PRN IVP NAUSEA OR VOMITING Last administered on 04/15/17 00:57; Start 04/14/17 at 15:45 Prochlorperazine (Compazine Supp) 25 mg Q12H PRN RECTAL NAUSEA OR VOMITING; Start 04/14/17 at 15:45 Enoxaparin Sodium (Lovenox Inj) 40 mg Q24H SQ Last administered on 04/14/17 17:16; Start 04/14/17 at 18:00 Acetaminophen (Tylenol) 650 mg Q6H PRN PO PAIN SCALE 1 TO 2; Start 04/14/17 at 15:45 Oxycodone/ Acetaminophen (Percocet 5-325 Mg) 1 tab Q6H PRN PO PAIN SCALE 3 TO 5; Start 04/14/17 at 15:45 Oxycodone/ Acetaminophen (Percocet 10-325 Mg) 1 tab Q6H PRN PO PAIN SCALE 6 TO 10 Last administered on 04/14/17 16:58; Start 04/14/17 at 15:45 Naloxone HCl (Narcan Inj) 0.4 mg UNSCH PRN IV PUSH SEE LABEL COMMENTS; Start 04/14/17 at 15:45 Senna/Docusate Sodium (Belkis-Colace) 1 tab BID PO Last administered on 10:16; Start 04/14/17 at 21:00 Magnesium Hydroxide (Milk Of Magnesia Liq) 30 ml Q12H PRN PO Mild constipation ; Start 04/14/17 at 15:45 Sennosides (Senokot) 17.2 mg Q12H PRN PO Moderate constipation; Start at 15:45 Bisacodyl (Dulcolax Supp) 10 mg DAILY PRN RECTAL SEVERE CONSITIPATION; Start 04/14/17 at 15:45 Lactulose (Lactulose Liq) 30 ml DAILY PRN PO SEVERE CONSITIPATION; Start 04/14 at 15:45 Guaifenesin (Mucinex Er) 600 mg BID PO Last administered on 04/15/17t 10:17; Start 04/14/17 at 17:00 Albuterol/ Ipratropium (Duoneb Neb) 1 ampule Q4HR NEB PRN NEB cough/congestion Last administered on 04/14/17t 18:34; Start 04/14/17 at 17:00 A/P Problem List: (1) Elevated troponin ICD Code: R79.89 - Other specified abnormal findings of blood chemistry Status: Acute (2) Pneumonia ICD Code: J18.9 - Pneumonia, unspecified organism Status: Acute (3) Hypertensive emergency ICD Code: I10 - Essential (primary) hypertension Status: Acute (4) Asthma ICD Code: J45.909 - Unspecified asthma, uncomplicated (5) CHF (congestive heart failure) ICD Code: I50.9 - Heart failure, unspecified (6) YOLY (acute kidney injury) ICD Code: N17.9 - Acute kidney failure, unspecified Status: Acute (7) HTN (hypertension) ICD Code: I10 - Essential (primary) hypertension (8) Hypoxia ICD Code: R09.02 - Hypoxemia Assessment and Plan 1. Hospital-acquired pneumonia Patient discharged on 04/07/17 where she was admitted to the ICU for hypertensive crisis and asthma exacerbation Chest x-ray showed for subsegmental infiltrate of the left lower lobe, images reviewed by me Lactic acid, WBCs within normal limits Blood cultures pending Vancomycin/Zosyn DuoNebs Add Mucinex twice a day Add incentive spirometry 2. Elevated troponin Patient with history of elevated troponin, currently at baseline EKG pending ACS rule out pending; serial troponins/EKGs Consult cardiology Dr. seymour since she was to follow up with him in the office this week 3. CKD Cr 1.77, Monitor renal function Avoid nephrotoxic agents A.m. labs 4. CHF/hypertension/cardiomyopathy Continue home medications: Aspirin, Lasix, lisinopril, metoprolol, nifedipine, spironolactone, hydralazine FEN Heart healthy diet NS at 100 cc/hr Electrolytes: Monitor and replete prn SCDs AM LABS MONITOR RENAL FUNCTIONS CONTINUE INCENTIVE SPIROMETRY Discharge Planning Pending improvement of pneumonia Selvin Kilgore DO Apr 15, 2017 14:14
--- NOTE | 2017-04-15 15:40 | EKG ---
Date Performed: 04/14/2017 Time Performed: 16:23:02 PTAGE: 31 years EKG: ATRIAL FLUTTER/TACHYCARDIA MODERATE T-WAVE ABNORMALITY, CONSIDER LATERAL ISCHEMIA ABNORMAL ECG PREVIOUS TRACING : 04/14/2017 07.19 Compared to prior tracing no significant change DOCTOR: Vance Freedman Interpretating Date/Time 04/15/2017 15:39:31
--- NOTE | 2017-04-15 15:40 | EKG ---
Date Performed: 04/14/2017 Time Performed: 07:19:47 PTAGE: 31 years EKG: Sinus rhythm WITH FIRST DEGREE AV BLOCK POSSIBLE LEFT ATRIAL ENLARGEMENT MODERATE T-WAVE ABNORMALITY, CONSIDER AN TEROLATERAL ISCHEMIA ABNORMAL ECG PREVIOUS TRACING : 04/14/2017 03.16 Compared to prior tracing no significant change DOCTOR: Vance Freedman Interpretating Date/Time 04/15/2017 15:39:06
--- NOTE | 2017-04-15 15:41 | EKG ---
Date Performed: 04/15/2017 Time Performed: 06:03:17 PTAGE: 31 years EKG: Sinus rhythm POSSIBLE LEFT ATRIAL ENLARGEMENT MODERATE T-WAVE ABNORMALITY, CONSIDER LATERAL ISCHEMIA ABNORMAL ECG PREVIOUS TRACING : 04/14/2017 16.23 Compared to prior tracing no significant change DOCTOR: Vance Freedman Interpretating Date/Time 04/15/2017 15:39:52
--- NOTE | 2017-04-15 16:24 | ECHRPT ---
Indication: htn h dis CONCLUSIONS Moderately dilated left ventricle. The left ventricular systolic function is severely reduced with an estimated ejection fraction in th e range of 30-35%. Visually slightly higher in some images, near 35%, very TDS due to obesity and endocardium not well visualized. Global hypokinesis Mild mitral valve regurgitation. The aortic valve is not well visualized. There is mild to moderate tricuspid valve regurgitation. The estimated pulmonary arterial pressure is 41.6 mmHg. There is a small pericardial effusion present. Very technically difficult due to morbid obesity. BP: / HR: Rhythm: MEASUREMENTS (Male / Female) Normal Values Technical Quality:Technically difficult study 2D ECHO LV Diastolic Diameter PLAX 7.5 cm 4.2 - 5.9 / 3.9 - 5.3 cm LV Systolic Diameter PLAX 6.6 cm IVS Diastolic Thickness 1.9 cm 0.6 - 1.0 / 0.6 - 0.9 cm LVPW Diastolic Thickness 1.3 cm 0.6 - 1.0 / 0.6 - 0.9 cm LV Relative Wall Thickness 0.4 RV Internal Dim ED PLAX 3.5 cm M-MODE Aortic Root Diameter MM 3.3 cm LA Systolic Diameter MM 4.7 cm LA Ao Ratio MM 1.4 AV Cusp Separation MM 2.0 cm DOPPLER LV E' Lateral Velocity 7.4 cm/s LV E' Septal Velocity 6.6 cm/s TR Peak Velocity 281.0 cm/s TR Peak Gradient 31.6 mmHg Right Atrial Pressure 10.0 mmHg Pulmonary Artery Systolic Pressu 41.6 mmHg Right Ventricular Systolic Press 41.6 mmHg FINDINGS LEFT VENTRICLE Moderately dilated left ventricle. The left ventricular systolic function is severely reduced with an estimated ejection fraction in th e range of 30-35%. RIGHT VENTRICLE Normal right ventricular size and systolic function. LEFT ATRIUM The left atrial size is normal. RIGHT ATRIUM The right atrial size is normal. ATRIAL SEPTUM Normal atrial septal thickness without atrial level shunting by limited color doppler interrogation. AORTA The aortic root and proximal ascending aorta are normal in size on limited imaging. MITRAL VALVE Structurally normal mitral valve. Mild mitral valve regurgitation. AORTIC VALVE The aortic valve is not well visualized. TRICUSPID VALVE Structurally normal tricuspid valve. There is mild to moderate tricuspid valve regurgitation. The estimated pulmonary arterial pressure is 41.6 mmHg. PULMONARY VALVE No pulmonary valve regurgitation or stenosis. VESSELS The inferior vena cava is normal in size. PERICARDIUM There is a small pericardial effusion present. Jordon Simpson MD (Electronically Signed) Final Date:15 April 2017 16:23
[2017-04-15] MEDS: ENOXAPARIN SODIUM 40 MG/0.4 ML SYRINGE SQ SCH (18:22)
--- NOTE | 2017-04-15 19:12 | PD.CARD.PN ---
Subjective Subjective Remarks No CP, less SOB, diuresing Objective Medications Current Medications Medications (Trade) Dose Ordered Sig/Evelyn Route Start Time Stop Time Status Last Admin Sodium Chloride 1,000 ml @ 100 mls/hr Q10H IV 04/13/17 22:45 04/15/17 12:53 (NS Flush) 2 ml UNSCH PRN IV FLUSH 04/13/17 23:00 (NS Flush) 2 ml BID IV FLUSH 04/14/17 09:00 04/14/17 21:59 (Duoneb Neb) 1 ampule Q4HR NEB PRN INH 04/13/17 23:00 04/14/17 04:47 (Ecotrin Ec) 81 mg DAILY PO 04/14/17 09:00 04/15/17 10:18 (Lasix) 40 mg DAILY PO 04/14/17 09:00 04/15/17 10:19 (Apresoline) 5 mg TID PO 04/14/17 09:00 04/15/17 18:22 (Prinivil) 20 mg DAILY PO 04/14/17 09:00 04/15/17 10:19 (Lopressor) 50 mg BID PO 04/14/17 09:00 04/15/17 10:16 (Procardia Xl) 30 mg DAILY PO 04/14/17 09:00 04/15/17 10:16 (KCl) 10 meq DAILY PO 04/14/17 09:00 04/15/17 10:19 (Aldactone) 25 mg DAILY PO 04/14/17 09:00 04/15/17 10:18 Pharmacy Profile Note 0 ml @ 0 mls/hr UNSCH OTHER 04/14/17 00:00 Piperacillin Sod/ Tazobactam Sod 100 ml @ 200 mls/hr Q6H IV 04/14/17 00:00 04/15/17 18:22 Vancomycin HCl 2500 mg/Sodium Chloride 525 ml @ 250 mls/hr Q24H IV 04/15/17 03:00 04/15/17 04:04 Miscellaneous Information SPECIFIC LAB TO BE DRAWN:VANCOMYCIN TROUGH DATE TO... ONCE ONCE .XX 04/17/17 02:45 04/17/17 02:46 (Tylenol) 650 mg Q4H PRN PO 04/14/17 15:45 04/15/17 00:58 (Zofran Inj) 4 mg Q6H PRN IVP 04/14/17 15:45 04/15/17 00:57 (Compazine Supp) 25 mg Q12H PRN RECTAL 04/14/17 15:45 (Lovenox Inj) 40 mg Q24H SQ 04/14/17 18:00 04/15/17 18:22 (Tylenol) 650 mg Q6H PRN PO 04/14/17 15:45 (Percocet 5-325 Mg) 1 tab Q6H PRN PO 04/14/17 15:45 (Percocet 10-325 Mg) 1 tab Q6H PRN PO 04/14/17 15:45 04/14/17 16:58 (Narcan Inj) 0.4 mg UNSCH PRN IV PUSH 04/14/17 15:45 (Belkis-Colace) 1 tab BID PO 04/14/17 21:00 04/15/17 10:16 (Milk Of Magnesia Liq) 30 ml Q12H PRN PO 04/14/17 15:45 (Senokot) 17.2 mg Q12H PRN PO 04/14/17 15:45 (Dulcolax Supp) 10 mg DAILY PRN RECTAL 04/14/17 15:45 (Lactulose Liq) 30 ml DAILY PRN PO 04/14/17 15:45 (Mucinex Er) 600 mg BID PO 04/14/17 17:00 04/15/17 10:17 (Duoneb Neb) 1 ampule Q4HR NEB PRN NEB 04/14/17 17:00 04/14/17 18:34 Vital Signs / I&O Vital Signs Date Time Temp Pulse Resp B/P (MAP) Pulse Ox O2 Delivery O2 Flow Rate FiO2 04/15/17 16:43 98.9 85 20 128/70 (89) 95 04/15/17 16:15 80 04/15/17 12:15 80 04/15/17 12:15 98.2 86 20 175/100 (125) 96 04/15/17 08:30 97.9 72 20 96 04/15/17 08:30 72 20 134/60 (84) 98 04/15/17 08:00 90 04/15/17 04:48 90 04/15/17 04:33 100.4 90 22 132/74 (93) 93 12/21/17 02:05 94 21 04/15/17 01:58 16 04/15/17 01:54 100.6 04/15/17 00:32 103.0 98 22 143/89 (107) 95 04/14/17 22:51 100.1 103 22 163/90 (114) 98 I/O 04/14/17 04/14/17 04/14/17 04/15/17 04/15/17 04/15/17 07:00 15:00 23:00 07:00 15:00 23:00 Intake Total 100 ml 200 ml 2150 ml 550 ml 1100 ml Output Total 1200 ml 3 ml Balance 100 ml 200 ml 950 ml 547 ml 1100 ml Intake Oral 850 ml 450 ml IV Total 100 ml 200 ml 1300 ml 100 ml 1100 ml Output Urine Total 1200 ml 3 ml Physical Exam GENERAL: In NAD SKIN: Warm and dry. HEAD: Normocephalic. EYES: No scleral icterus. No injection or drainage. NECK: Supple, trachea midline. No JVD or lymphadenopathy. CARDIOVASCULAR: Regular rate and rhythm without murmurs, gallops, or rubs. RESPIRATORY: Breath sounds decreased bilaterally. No accessory muscle use. GASTROINTESTINAL: Abdomen soft, non-tender, nondistended. MUSCULOSKELETAL: No cyanosis, mild edema. Laboratory Laboratory Tests Test 04/14/17 20:51 04/15/17 03:51 04/15/17 04:01 Total Creatine Kinase 1245 U/L Creatine Kinase MB 4.3 NG/ML Creatine Kinase MB % 0.3 % Troponin I 0.66 NG/ML White Blood Count 6.2 TH/MM3 Red Blood Count 4.37 MIL/MM3 Hemoglobin 9.9 GM/DL Hematocrit 30.9 % Mean Corpuscular Volume 70.7 FL Mean Corpuscular Hemoglobin 22.5 PG Mean Corpuscular Hemoglobin Concent 31.9 % Red Cell Distribution Width 21.2 % Platelet Count 260 TH/MM3 Mean Platelet Volume 8.4 FL Neutrophils (%) (Auto) 77.0 % Lymphocytes (%) (Auto) 9.2 % Monocytes (%) (Auto) 12.9 % Eosinophils (%) (Auto) 0.3 % Basophils (%) (Auto) 0.6 % Neutrophils # (Auto) 4.8 TH/MM3 Lymphocytes # (Auto) 0.6 TH/MM3 Monocytes # (Auto) 0.8 TH/MM3 Eosinophils # (Auto) 0.0 TH/MM3 Basophils # (Auto) 0.0 TH/MM3 CBC Comment DIFF FINAL Differential Comment Blood Urea Nitrogen 18 MG/DL Creatinine 1.77 MG/DL Random Glucose 85 MG/DL Total Protein 7.0 GM/DL Albumin 3.1 GM/DL Calcium Level 8.5 MG/DL Phosphorus Level 4.0 MG/DL Magnesium Level 2.1 MG/DL Alkaline Phosphatase 51 U/L Aspartate Amino Transf (AST/SGOT) 46 U/L Alanine Aminotransferase (ALT/SGPT) 42 U/L Total Bilirubin 0.3 MG/DL Sodium Level 139 MEQ/L Potassium Level 4.4 MEQ/L Chloride Level 105 MEQ/L Carbon Dioxide Level 27.2 MEQ/L Anion Gap 7 MEQ/L Estimat Glomerular Filtration Rate 41 ML/MIN Hemoglobin A1c 5.7 % Free Thyroxine 1.07 NG/DL Thyroid Stimulating Hormone 3rd Gen 0.336 uIU/ML Lactic Acid Level 0.6 mmol/L Assessment and Plan Problem List: (1) Pneumonia ICD Codes: J18.9 - Pneumonia, unspecified organism Status: Acute (2) Elevated troponin ICD Codes: R79.89 - Other specified abnormal findings of blood chemistry Status: Acute (3) CHF (congestive heart failure) ICD Codes: I50.9 - Heart failure, unspecified (4) Cardiomyopathy ICD Codes: I42.9 - Cardiomyopathy, unspecified (5) Hypertensive urgency ICD Codes: I10 - Essential (primary) hypertension Status: Acute (6) YOLY (acute kidney injury) ICD Codes: N17.9 - Acute kidney failure, unspecified Status: Acute (7) HTN (hypertension) ICD Codes: I10 - Essential (primary) hypertension (8) Asthma ICD Codes: J45.909 - Unspecified asthma, uncomplicated Assessment and Plan No angina. Troponin not trending, unlikely to represent ACS. Continue tx for CHF including diuresis, monitor renal fx. Continue abxs for pneumonia. Increase activity. Akhil Swenson MD Apr 15, 2017 19:12
[2017-04-16] VITALS (11 sets, daily range): BP systolic 138–168; BP diastolic 84–97; PULSE 72–89; RESP 18–20; TEMP 98.2–98.8; O2SAT 95–99
[2017-04-16] MEDS: VANCOMYCIN INJ 2,500 MG in SODIUM CHLORID 0.9% 500 ML INJ 500 ML IV SCH (03:40)
[2017-04-16] MEDS: PIPERACIL-TAZO 4.5 GM PREMIX 100 ML IV SCH ×2 (06:32→12:11)
[2017-04-16] MEDS: SODIUM CHLORIDE 0.9% FLUSH 10 ML FLUSH IV FLUSH SCH (09:00)
[2017-04-16] MEDS: DOCUSATE SODIUM 50 MG/SENNA 8.6 MG TAB PO SCH (09:00)
[2017-04-16] MEDS: LISINOPRIL 20 MG TAB PO SCH (09:45)
[2017-04-16] MEDS: SPIRONOLACTONE 25 MG TAB PO SCH (09:46)
[2017-04-16] MEDS: guaiFENesin E.R. 600 MG TAB PO SCH (09:46)
[2017-04-16] MEDS: POTASSIUM CHLORIDE 10 MEQ CONTROLLED RELEASE TAB PO SCH (09:46)
[2017-04-16] MEDS: NIFEdipine 30 MG SUSTAINED RELEASE TAB PO SCH (09:47)
[2017-04-16] MEDS: METOPROLOL TARTRATE 50 MG TAB PO SCH (09:47)
[2017-04-16] MEDS: FUROSEMIDE 40 MG TAB PO SCH (09:47)
[2017-04-16] MEDS: hydrALAZINE HCL 25 MG TAB PO SCH ×2 (09:47→12:11)
[2017-04-16] MEDS: ASPIRIN EC 81 MG TABEC PO SCH (09:47)
--- NOTE | 2017-04-16 10:56 | PD.CARD.PN ---
Subjective Subjective Remarks No CP, less SOB, feels better Objective Medications Current Medications Medications (Trade) Dose Ordered Sig/Evelyn Route Start Time Stop Time Status Last Admin Sodium Chloride 1,000 ml @ 100 mls/hr Q10H IV 04/13/17 22:45 04/15/17 23:52 (NS Flush) 2 ml UNSCH PRN IV FLUSH 04/13/17 23:00 (NS Flush) 2 ml BID IV FLUSH 04/14/17 09:00 04/14/17 21:59 (Duoneb Neb) 1 ampule Q4HR NEB PRN INH 04/13/17 23:00 04/14/17 04:47 (Ecotrin Ec) 81 mg DAILY PO 04/14/17 09:00 04/16/17 09:47 (Lasix) 40 mg DAILY PO 04/14/17 09:00 04/16/17 09:47 (Apresoline) 5 mg TID PO 04/14/17 09:00 04/16/17 09:47 (Prinivil) 20 mg DAILY PO 04/14/17 09:00 04/16/17 09:45 (Lopressor) 50 mg BID PO 04/14/17 09:00 04/16/17 09:47 (Procardia Xl) 30 mg DAILY PO 04/14/17 09:00 04/16/17 09:47 (KCl) 10 meq DAILY PO 04/14/17 09:00 04/16/17 09:46 (Aldactone) 25 mg DAILY PO 04/14/17 09:00 04/16/17 09:46 Pharmacy Profile Note 0 ml @ 0 mls/hr UNSCH OTHER 04/14/17 00:00 Piperacillin Sod/ Tazobactam Sod 100 ml @ 200 mls/hr Q6H IV 04/14/17 00:00 04/16/17 06:32 Vancomycin HCl 2500 mg/Sodium Chloride 525 ml @ 250 mls/hr Q24H IV 04/15/17 03:00 04/16/17 03:40 Miscellaneous Information SPECIFIC LAB TO BE DRAWN:VANCOMYCIN TROUGH DATE TO... ONCE ONCE .XX 04/17/17 02:45 04/17/17 02:46 (Tylenol) 650 mg Q4H PRN PO 04/14/17 15:45 04/15/17 00:58 (Zofran Inj) 4 mg Q6H PRN IVP 04/14/17 15:45 04/15/17 00:57 (Compazine Supp) 25 mg Q12H PRN RECTAL 04/14/17 15:45 (Lovenox Inj) 40 mg Q24H SQ 04/14/17 18:00 04/15/17 18:22 (Tylenol) 650 mg Q6H PRN PO 04/14/17 15:45 (Percocet 5-325 Mg) 1 tab Q6H PRN PO 04/14/17 15:45 (Percocet 10-325 Mg) 1 tab Q6H PRN PO 04/14/17 15:45 04/14/17 16:58 (Narcan Inj) 0.4 mg UNSCH PRN IV PUSH 04/14/17 15:45 (Belkis-Colace) 1 tab BID PO 04/14/17 21:00 04/15/17 10:16 (Milk Of Magnesia Liq) 30 ml Q12H PRN PO 04/14/17 15:45 (Senokot) 17.2 mg Q12H PRN PO 04/14/17 15:45 (Dulcolax Supp) 10 mg DAILY PRN RECTAL 04/14/17 15:45 (Lactulose Liq) 30 ml DAILY PRN PO 04/14/17 15:45 (Mucinex Er) 600 mg BID PO 04/14/17 17:00 04/16/17 09:46 (Duoneb Neb) 1 ampule Q4HR NEB PRN NEB 04/14/17 17:00 04/14/17 18:34 Vital Signs / I&O Vital Signs Date Time Temp Pulse Resp B/P (MAP) Pulse Ox O2 Delivery O2 Flow Rate FiO2 04/16/17 08:26 98.2 72 20 168/97 (120) 98 04/16/17 07:25 99 21 04/16/17 03:59 81 04/16/17 03:53 98.8 84 20 152/86 (108) 96 04/16/17 00:07 79 04/16/17 00:06 76 04/16/17 00:01 98.7 77 20 138/84 (102) 95 04/15/17 21:05 93 21 04/15/17 20:46 98.5 85 20 140/81 (100) 95 04/15/17 20:03 81 04/15/17 16:43 98.9 85 20 128/70 (89) 95 04/15/17 16:15 80 04/15/17 12:15 80 04/15/17 12:15 98.2 86 20 175/100 (125) 96 I/O 04/15/17 04/15/17 04/15/17 04/16/17 04/16/17 04/16/17 07:00 15:00 23:00 07:00 15:00 23:00 Intake Total 550 ml 1100 ml 100 ml 2450 ml Output Total 3 ml Balance 547 ml 1100 ml 100 ml 2450 ml Intake Oral 450 ml 750 ml IV Total 100 ml 1100 ml 100 ml 1700 ml Output Urine Total 3 ml # Voids 4 6 # Bowel Movements 2 Physical Exam GENERAL: In NAD SKIN: Warm and dry. HEAD: Normocephalic. EYES: No scleral icterus. No injection or drainage. NECK: Supple, trachea midline. No JVD or lymphadenopathy. CARDIOVASCULAR: Regular rate and rhythm without murmurs, gallops, or rubs. RESPIRATORY: Breath sounds decreased bilaterally. No accessory muscle use. GASTROINTESTINAL: Abdomen soft, non-tender, nondistended. MUSCULOSKELETAL: No cyanosis, mild edema. Assessment and Plan Problem List: (1) Pneumonia ICD Codes: J18.9 - Pneumonia, unspecified organism Status: Acute (2) Elevated troponin ICD Codes: R79.89 - Other specified abnormal findings of blood chemistry Status: Acute (3) CHF (congestive heart failure) ICD Codes: I50.9 - Heart failure, unspecified (4) Cardiomyopathy ICD Codes: I42.9 - Cardiomyopathy, unspecified (5) Hypertensive urgency ICD Codes: I10 - Essential (primary) hypertension Status: Acute (6) YOLY (acute kidney injury) ICD Codes: N17.9 - Acute kidney failure, unspecified Status: Acute (7) HTN (hypertension) ICD Codes: I10 - Essential (primary) hypertension (8) Asthma ICD Codes: J45.909 - Unspecified asthma, uncomplicated Assessment and Plan No angina. Overall improved. Troponin not trending, unlikely to represent ACS. Continue tx for CHF including diuresis, monitor renal fx. Continue abxs for pneumonia. Increase activity. Anticipate discharge soon. Will schedule outpatient f/u. Akhil Swenson MD Apr 16, 2017 10:56
--- NOTE | 2017-04-16 11:21 | HHI.PR ---
Subjective Remarks 31-year-old female with a past medical history significant for hypertension, cardiomyopathy, CHF with an EF of 40% and asthma presents to the emergency department with a one to two-week history of fever/chills and dyspnea on exertion. The patient reports her symptoms have been worsening. She endorses a nonproductive cough. On arrival to the emergency department she was febrile to 102.8. No leukocytosis. Lactic acid 0.8. Chest x-ray significant for subsegmental infiltrate of the left lower lobe. Troponin was elevated at 0.46, patient has a history of elevated troponin. She denies any chest pain. She was discharged from the hospital on 04/07/17 where she was treated for hypertensive crisis and asthma exacerbation. 04-14 PATIENT COMPLAINS OF COUGH AND CONGESTION HAS POSITIVE TROPONINS WILL CONSULT CARDIOLOGY- SCHEDULED TO SEE DR SEYMOUR HAS LESS SOB, SOME PLEURITIC CHEST PAIN ON THE LEFT SIDE DW RN AND PT CONSULT CARDIOLOGY ADD MUCINEX AND INCENTIVE SPIROMETRY 04-15 STILL COUGH AND CONGESTION HAD FEVERS UP UNTIL THIS MORNING HAS NOT HAD ECHO YET DW RN AND PT CONTINUE ANTIBIOTICS NOT BEEN CLEARED BY CARDIOLOGY 04-16 NO FEVERS TODAY DW PATIENT AND RN FEELING BETTER WANTS TO GO HOME CHANGE TO AUGMENTIN AND DC TO HOME TODAY Objective Vitals Vital Signs Date Time Temp Pulse Resp B/P (MAP) Pulse Ox O2 Delivery O2 Flow Rate FiO2 04/16/17 08:26 98.2 72 20 168/97 (120) 98 04/16/17 07:25 99 21 04/16/17 03:59 81 04/16/17 03:53 98.8 84 20 152/86 (108) 96 04/16/17 00:07 79 04/16/17 00:06 76 04/16/17 00:01 98.7 77 20 138/84 (102) 95 04/15/17 21:05 93 21 04/15/17 20:46 98.5 85 20 140/81 (100) 95 04/15/17 20:03 81 04/15/17 16:43 98.9 85 20 128/70 (89) 95 04/15/17 16:15 80 04/15/17 12:15 80 04/15/17 12:15 98.2 86 20 175/100 (125) 96 I/O 04/15/17 04/15/17 04/15/17 04/16/1717 12/22/17 07:00 15:00 23:00 07:00 15:00 23:00 Intake Total 550 ml 1100 ml 100 ml 2450 ml Output Total 3 ml Balance 547 ml 1100 ml 100 ml 2450 ml Intake Oral 450 ml 750 ml IV Total 100 ml 1100 ml 100 ml 1700 ml Output Urine Total 3 ml # Voids 4 6 # Bowel Movements 2 Result Diagram: 04/15/17 0351 04/15/17 0351 Other Results Laboratory Tests Test 04/13/17 19:40 04/13/17 19:50 04/14/17 02:58 04/14/17 09:16 White Blood Count 7.0 TH/MM3 5.0 TH/MM3 Red Blood Count 4.62 MIL/MM3 4.26 MIL/MM3 Hemoglobin 10.2 GM/DL 9.7 GM/DL Hematocrit 32.7 % 30.0 % Mean Corpuscular Volume 70.7 FL 70.3 FL Mean Corpuscular Hemoglobin 22.1 PG 22.7 PG Mean Corpuscular Hemoglobin Concent 31.3 % 32.3 % Red Cell Distribution Width 21.4 % 21.1 % Platelet Count 303 TH/MM3 264 TH/MM3 Mean Platelet Volume 8.4 FL 8.6 FL Neutrophils (%) (Auto) 80.4 % 76.4 % Lymphocytes (%) (Auto) 6.7 % 9.6 % Monocytes (%) (Auto) 12.0 % 13.4 % Eosinophils (%) (Auto) 0.2 % 0.0 % Basophils (%) (Auto) 0.7 % 0.6 % Neutrophils # (Auto) 5.6 TH/MM3 3.8 TH/MM3 Lymphocytes # (Auto) 0.5 TH/MM3 0.5 TH/MM3 Monocytes # (Auto) 0.8 TH/MM3 0.7 TH/MM3 Eosinophils # (Auto) 0.0 TH/MM3 0.0 TH/MM3 Basophils # (Auto) 0.1 TH/MM3 0.0 TH/MM3 CBC Comment DIFF FINAL DIFF FINAL Differential Comment Blood Urea Nitrogen 13 MG/DL 17 MG/DL Creatinine 1.57 MG/DL 1.71 MG/DL Random Glucose 97 MG/DL 110 MG/DL Total Protein 7.5 GM/DL Albumin 3.2 GM/DL Calcium Level 8.6 MG/DL 8.4 MG/DL Alkaline Phosphatase 58 U/L Aspartate Amino Transf (AST/SGOT) 31 U/L Alanine Aminotransferase (ALT/SGPT) 38 U/L Total Bilirubin 0.4 MG/DL Sodium Level 133 MEQ/L 137 MEQ/L Potassium Level 4.0 MEQ/L 3.4 MEQ/L Chloride Level 98 MEQ/L 102 MEQ/L Carbon Dioxide Level 26.0 MEQ/L 27.6 MEQ/L Anion Gap 9 MEQ/L 7 MEQ/L Estimat Glomerular Filtration Rate 47 ML/MIN 43 ML/MIN Total Creatine Kinase 689 U/L 843 U/L 1121 U/L Creatine Kinase MB 1.8 NG/ML 2.6 NG/ML 4.8 NG/ML Creatine Kinase MB % 0.3 % 0.3 % 0.4 % Troponin I 0.46 NG/ML 0.48 NG/ML 0.54 NG/ML B-Type Natriuretic Peptide 444 PG/ML Lactic Acid Level 0.8 mmol/L Test 04/14/17 16:37 04/14/17 20:51 04/15/17 03:51 04/15/17 04:01 Total Creatine Kinase 1281 U/L 1245 U/L Creatine Kinase MB 6.0 NG/ML 4.3 NG/ML Creatine Kinase MB % 0.5 % 0.3 % Troponin I 0.63 NG/ML 0.66 NG/ML White Blood Count 6.2 TH/MM3 Red Blood Count 4.37 MIL/MM3 Hemoglobin 9.9 GM/DL Hematocrit 30.9 % Mean Corpuscular Volume 70.7 FL Mean Corpuscular Hemoglobin 22.5 PG Mean Corpuscular Hemoglobin Concent 31.9 % Red Cell Distribution Width 21.2 % Platelet Count 260 TH/MM3 Mean Platelet Volume 8.4 FL Neutrophils (%) (Auto) 77.0 % Lymphocytes (%) (Auto) 9.2 % Monocytes (%) (Auto) 12.9 % Eosinophils (%) (Auto) 0.3 % Basophils (%) (Auto) 0.6 % Neutrophils # (Auto) 4.8 TH/MM3 Lymphocytes # (Auto) 0.6 TH/MM3 Monocytes # (Auto) 0.8 TH/MM3 Eosinophils # (Auto) 0.0 TH/MM3 Basophils # (Auto) 0.0 TH/MM3 CBC Comment DIFF FINAL Differential Comment Blood Urea Nitrogen 18 MG/DL Creatinine 1.77 MG/DL Random Glucose 85 MG/DL Total Protein 7.0 GM/DL Albumin 3.1 GM/DL Calcium Level 8.5 MG/DL Phosphorus Level 4.0 MG/DL Magnesium Level 2.1 MG/DL Alkaline Phosphatase 51 U/L Aspartate Amino Transf (AST/SGOT) 46 U/L Alanine Aminotransferase (ALT/SGPT) 42 U/L Total Bilirubin 0.3 MG/DL Sodium Level 139 MEQ/L Potassium Level 4.4 MEQ/L Chloride Level 105 MEQ/L Carbon Dioxide Level 27.2 MEQ/L Anion Gap 7 MEQ/L Estimat Glomerular Filtration Rate 41 ML/MIN Hemoglobin A1c 5.7 % Free Thyroxine 1.07 NG/DL Thyroid Stimulating Hormone 3rd Gen 0.336 uIU/ML Lactic Acid Level 0.6 mmol/L Imaging Last Impressions Chest X-Ray 04/13/171925 Signed Impressions: Service Date/Time: Thursday, April 13, 2017 19:46 - CONCLUSION: 1. Panchamber cardiomegaly 2. Subsegmental infiltrate left lower lobe. Alexey Jarvis MD Objective Remarks GENERAL: Awake alert oriented 3 talkative and cooperative morbidly obese SKIN: Warm and dry. HEAD: Atraumatic. Normocephalic. EYES: Pupils equal and round. No scleral icterus. No injection or drainage. Attractive muscles intact ENT: No nasal bleeding or discharge. Mucous membranes pink and moist. Tongue is midline NECK: Trachea midline. No JVD. Supple CARDIOVASCULAR: Regular rate and rhythm. S1 and S2 no S3 or S4 RESPIRATORY: No accessory muscle use. . Breath sounds equal bilaterally. Decreased breath sounds throughout some scattered rhonchi on the left side GASTROINTESTINAL: Abdomen soft, non-tender, nondistended. Hepatic and splenic margins not palpable. Morbidly obese MUSCULOSKELETAL: Extremities without clubbing, cyanosis, or edema. No obvious deformities. NEUROLOGICAL: Awake and alert. No obvious cranial nerve deficits. Motor grossly within normal limits. Five out of 5 muscle strength in the arms and legs. Normal speech. PSYCHIATRIC: Appropriate mood and affect; insight and judgment normal. Procedures NONE Medications and IVs Current Medications Sodium Chloride (NS Flush) 2 ml UNSCH PRN IVF FLUSH AFTER USING IV ACCESS; Start 04/13/17 at 19:30; Status Cancel Albuterol/ Ipratropium (Duoneb Neb) 1 ampule ONCE ONCE INH Last administered on 04/13/17 19:52; Start 04/13/17 at 19:30; Stop 04/13/17 at 19:31; Status DC Albuterol Sulfate (Albuterol Neb) 2.5 mg Q15M INH Last administered on 19:49; Start 04/13/17 at 19:30; Stop 04/13/17 at 19:46; Status DC Ceftriaxone Sodium 1000 mg/ Sodium Chloride 100 ml @ 200 mls/hr ONCE ONCE IV Last administered on 04/13/17 22:49; Start 04/13/17 at 22:45; Stop 04/13/17 at 23:14; Status DC Azithromycin 500 mg/Sodium Chloride 250 ml @ 250 mls/hr ONCE ONCE IV Last administered on 04/13/17 23:33; Start 04/13/17 at 22:45; Stop 04/13/17 at 23 :44; Status DC Ibuprofen (Motrin) 800 mg ONCE ONCE PO Last administered on 04/13/17 22:46; Start 04/13/17 at 22:45; Stop 04/13/17 at 22:46; Status DC Sodium Chloride 1,000 ml @ 100 mls/hr Q10H IV Last administered on 04/15/17 23:52; Start 04/13/17 at 22:45 Morphine Sulfate (Morphine Inj) 2 mg ONCE ONCE IV PUSH Last administered on 22:46; Start 04/13/17 at 22:45; Stop 04/13/17 at 22:46; Status DC Sodium Chloride (NS Flush) 2 ml UNSCH PRN IV FLUSH FLUSH AFTER USING IV ACCESS ; Start 04/13/17 at 23:00 Sodium Chloride (NS Flush) 2 ml BID IV FLUSH Last administered on 04/14/17 21 :59; Start 04/14/17 at 09:00 Ceftriaxone Sodium 1000 mg/ Sodium Chloride 100 ml @ 200 mls/hr Q24H IV ; Start 04/14/17 at 20:00; Stop 04/14/17 at 20:00; Status DC Azithromycin (Zithromax) 500 mg Q24H PO ; Start 04/14/17 at 20:00; Stop at 20:00; Status DC Albuterol/ Ipratropium (Duoneb Neb) 1 ampule Q4HR NEB PRN INH SHORTNESS OF BREATH Last administered on 04/14/17 04:47; Start 04/13/17 at 23:00 Aspirin (Ecotrin Ec) 81 mg DAILY PO Last administered on 04/16/17 09:47; Start 04/14/17 at 09:00 Furosemide (Lasix) 40 mg DAILY PO Last administered on 04/16/17 09:47; Start 04/14/17 at 09:00 Hydralazine HCl (Apresoline) 5 mg TID PO Last administered on 04/16/17 09:47 ; Start 04/14/17 at 09:00 Lisinopril (Prinivil) 20 mg DAILY PO Last administered on 04/16/17 09:45; Start 04/14/17 at 09:00 Metoprolol Tartrate (Lopressor) 50 mg BID PO Last administered on 04/16/17 09 :47; Start 04/14/17 at 09:00 Nifedipine (Procardia Xl) 30 mg DAILY PO Last administered on 04/16/17 09:47 ; Start 04/14/17 at 09:00 Potassium Chloride (KCl) 10 meq DAILY PO Last administered on 04/16/17 09:46 ; Start 04/14/17 at 09:00 Spironolactone (Aldactone) 25 mg DAILY PO Last administered on 04/16/17 09:46 ; Start 04/14/17 at 09:00 Pharmacy Profile Note 0 ml @ 0 mls/hr UNSCH OTHER ; Start 04/14/17 at 00:00 Vancomycin HCl 1000 mg/Sodium Chloride 250 ml @ 250 mls/hr Q12H IV ; Start at 01:00; Status Cancel Piperacillin Sod/ Tazobactam Sod 100 ml @ 200 mls/hr Q6H IV Last administered on 04/16/17 06:32; Start 04/14/17 at 00:00 Vancomycin HCl 2500 mg/Sodium Chloride 525 ml @ 250 mls/hr ONCE ONCE IV Last administered on 04/14/17 03:19; Start 04/14/17 at 01:00; Stop 04/14/17 at 03 :05; Status DC Vancomycin HCl 2500 mg/Sodium Chloride 525 ml @ 250 mls/hr Q24H IV Last administered on 04/16/17 03:40; Start 04/15/17 at 03:00 Miscellaneous Information SPECIFIC LAB TO BE DRAWN:VANCOMYCIN TROUGH DATE TO... ONCE ONCE .XX ; Start 04/17/17 at 02:45; Stop 04/17/17 at 02:46 Sodium Chloride (NS Flush) 2 ml UNSCH PRN IV FLUSH FLUSH AFTER USING IV ACCESS ; Start 04/14/17 at 15:45; Stop 04/14/17 at 16:36; Status DC Sodium Chloride (NS Flush) 2 ml BID IV FLUSH ; Start 04/14/17 at 21:00; Stop 04/14/17 at 21:00; Status DC Acetaminophen (Tylenol) 650 mg Q4H PRN PO TEMP > 100.4 Last administered on 00:58; Start 04/14/17 at 15:45 Ondansetron HCl (Zofran Inj) 4 mg Q6H PRN IVP NAUSEA OR VOMITING Last administered on 04/15/17 00:57; Start 04/14/17 at 15:45 Prochlorperazine (Compazine Supp) 25 mg Q12H PRN RECTAL NAUSEA OR VOMITING; Start 04/14/17 at 15:45 Enoxaparin Sodium (Lovenox Inj) 40 mg Q24H SQ Last administered on 04/15/17 18:22; Start 04/14/17 at 18:00 Acetaminophen (Tylenol) 650 mg Q6H PRN PO PAIN SCALE 1 TO 2; Start 04/14/17 at 15:45 Oxycodone/ Acetaminophen (Percocet 5-325 Mg) 1 tab Q6H PRN PO PAIN SCALE 3 TO 5; Start 04/14/17 at 15:45 Oxycodone/ Acetaminophen (Percocet 10-325 Mg) 1 tab Q6H PRN PO PAIN SCALE 6 TO 10 Last administered on 04/14/17 16:58; Start 04/14/17 at 15:45 Naloxone HCl (Narcan Inj) 0.4 mg UNSCH PRN IV PUSH SEE LABEL COMMENTS; Start 04/14/17 at 15:45 Senna/Docusate Sodium (Belkis-Colace) 1 tab BID PO Last administered on 10:16; Start 04/14/17 at 21:00 Magnesium Hydroxide (Milk Of Magnesia Liq) 30 ml Q12H PRN PO Mild constipation ; Start 04/14/17 at 15:45 Sennosides (Senokot) 17.2 mg Q12H PRN PO Moderate constipation; Start at 15:45 Bisacodyl (Dulcolax Supp) 10 mg DAILY PRN RECTAL SEVERE CONSITIPATION; Start 04/14/17 at 15:45 Lactulose (Lactulose Liq) 30 ml DAILY PRN PO SEVERE CONSITIPATION; Start 04/14 at 15:45 Guaifenesin (Mucinex Er) 600 mg BID PO Last administered on 04/16/17t 09:46; Start 04/14/17 at 17:00 Albuterol/ Ipratropium (Duoneb Neb) 1 ampule Q4HR NEB PRN NEB cough/congestion Last administered on 04/14/17t 18:34; Start 04/14/17 at 17:00 A/P Problem List: (1) Elevated troponin ICD Code: R79.89 - Other specified abnormal findings of blood chemistry Status: Acute (2) Pneumonia ICD Code: J18.9 - Pneumonia, unspecified organism Status: Acute (3) Hypertensive emergency ICD Code: I10 - Essential (primary) hypertension Status: Acute (4) Asthma ICD Code: J45.909 - Unspecified asthma, uncomplicated (5) CHF (congestive heart failure) ICD Code: I50.9 - Heart failure, unspecified (6) YOLY (acute kidney injury) ICD Code: N17.9 - Acute kidney failure, unspecified Status: Acute (7) HTN (hypertension) ICD Code: I10 - Essential (primary) hypertension (8) Hypoxia ICD Code: R09.02 - Hypoxemia Assessment and Plan 1. Hospital-acquired pneumonia Patient discharged on 04/07/17 where she was admitted to the ICU for hypertensive crisis and asthma exacerbation Chest x-ray showed for subsegmental infiltrate of the left lower lobe, images reviewed by me Lactic acid, WBCs within normal limits Blood cultures pending CHANGE TO AUGMENTIN AND DC TODAY DuoNebs Add Mucinex twice a day Add incentive spirometry 2. Elevated troponin Patient with history of elevated troponin, currently at baseline EKG pending ACS rule out pending; serial troponins/EKGs Consult cardiology Dr. seymour since she was to follow up with him in the office this week CLEARED BY CARDIOLOGY- TROPONINS STABLE 3. CKD Cr 1.77, Monitor renal function Avoid nephrotoxic agents A.m. labs 4. CHF/hypertension/cardiomyopathy Continue home medications: Aspirin, Lasix, lisinopril, metoprolol, nifedipine, spironolactone, hydralazine FEN Heart healthy diet NS at 100 cc/hr Electrolytes: Monitor and replete prn SCDs CHANGE TO PO MEDS AND DC ON AUGMENTIN MONITOR RENAL FUNCTIONS CONTINUE INCENTIVE SPIROMETRY Discharge Planning Pending improvement of pneumonia Selvin Kilgore DO Apr 16, 2017 11:21
[2017-04-16] MEDS ORDERED: HYDR-3799 PO (11:27)
[2017-04-16] MEDS ORDERED: FURO1TAB60 PO (11:27)
[2017-04-16] MEDS ORDERED: LISI-515 PO (11:27)
[2017-04-16] MEDS ORDERED: Albuterol-Ipratropium Neb INH (11:27)
[2017-04-16] MEDS ORDERED: KLOR10TA PO (11:27)
[2017-04-16] MEDS ORDERED: VENTAER INH (11:27)
[2017-04-16] MEDS ORDERED: METO50TA PO (11:27)
[2017-04-16] MEDS ORDERED: SPIR25TA PO (11:27)
[2017-04-16] MEDS ORDERED: ASPI1TAB56 PO (11:27)
[2017-04-16] MEDS ORDERED: NIFE30TA8 PO (11:27)
[2017-04-16] MEDS ORDERED: guaiFENesin ER PO (11:27)
[2017-04-16] MEDS ORDERED: AUGM875T3 PO (11:27)
[2017-04-16] MEDS ORDERED: NEBUMIS25 (11:30)
--- NOTE | 2017-04-16 11:31 | HHI.DS ---
Discharge Summary Admission Date Apr 13, 2017 at 22:52 Discharge Date: Apr 16, 2017 Admitting Diagnosis penumonia, chronic kidney injury, elevated troponin, (1) Elevated troponin ICD Code: R79.89 - Other specified abnormal findings of blood chemistry Diagnosis: Secondary Status: Acute (2) Pneumonia ICD Code: J18.9 - Pneumonia, unspecified organism Diagnosis: Principal Status: Acute (3) Hypertensive emergency ICD Code: I10 - Essential (primary) hypertension Diagnosis: Principal Status: Acute (4) Asthma ICD Code: J45.909 - Unspecified asthma, uncomplicated Diagnosis: Secondary (5) CHF (congestive heart failure) ICD Code: I50.9 - Heart failure, unspecified Diagnosis: Principal (6) YOLY (acute kidney injury) ICD Code: N17.9 - Acute kidney failure, unspecified Diagnosis: Secondary Status: Acute (7) HTN (hypertension) ICD Code: I10 - Essential (primary) hypertension Diagnosis: Principal (8) Hypoxia ICD Code: R09.02 - Hypoxemia Diagnosis: Principal Procedures NONE Brief History - From Admission 31-year-old female with a past medical history significant for hypertension, cardiomyopathy, CHF with an EF of 40% and asthma presents to the emergency department with a one to two-week history of fever/chills and dyspnea on exertion. The patient reports her symptoms have been worsening. She endorses a nonproductive cough. On arrival to the emergency department she was febrile to 102.8. No leukocytosis. Lactic acid 0.8. Chest x-ray significant for subsegmental infiltrate of the left lower lobe. Troponin was elevated at 0.46, patient has a history of elevated troponin. She denies any chest pain. She was discharged from the hospital on 04/07/17 where she was treated for hypertensive crisis and asthma exacerbation. CBC/BMP: 04/15/17 0351 04/15/17 0351 Significant Findings Laboratory Tests Test 04/13/17 19:40 04/13/17 19:50 04/14/17 02:58 04/14/17 09:16 Hemoglobin 10.2 GM/DL (11.6-15.3) 9.7 GM/DL (11.6-15.3) Hematocrit 32.7 % (35.0-46.0) 30.0 % (35.0-46.0) Mean Corpuscular Volume 70.7 FL (80.0-100.0) 70.3 FL (80.0-100.0) Mean Corpuscular Hemoglobin 22.1 PG (27.0-34.0) 22.7 PG (27.0-34.0) Mean Corpuscular Hemoglobin Concent 31.3 % (32.0-36.0) Red Cell Distribution Width 21.4 % (11.6-17.2) 21.1 % (11.6-17.2) Neutrophils (%) (Auto) 80.4 % (16.0-70.0) 76.4 % (16.0-70.0) Lymphocytes (%) (Auto) 6.7 % (9.0-44.0) Monocytes (%) (Auto) 12.0 % (0.0-8.0) 13.4 % (0.0-8.0) Lymphocytes # (Auto) 0.5 TH/MM3 (1.0-4.8) 0.5 TH/MM3 (1.0-4.8) Creatinine 1.57 MG/DL (0.50-1.00) 1.71 MG/DL (0.50-1.00) Albumin 3.2 GM/DL (3.4-5.0) Sodium Level 133 MEQ/L (136-145) Estimat Glomerular Filtration Rate 47 ML/MIN (>89) 43 ML/MIN (>89) Total Creatine Kinase 689 U/L (26-192) 843 U/L (26-192) 1121 U/L (26-192) Troponin I 0.46 NG/ML (0.02-0.05) 0.48 NG/ML (0.02-0.05) 0.54 NG/ML (0.02-0.05) B-Type Natriuretic Peptide 444 PG/ML (0-100) Random Glucose 110 MG/DL (74-106) Calcium Level 8.4 MG/DL (8.5-10.1) Potassium Level 3.4 MEQ/L (3.5-5.1) Creatine Kinase MB 4.8 NG/ML (0.5-3.6) Test 04/14/17 16:37 04/14/17 20:51 04/15/17 03:51 04/15/17 04:01 Total Creatine Kinase 1281 U/L (26-192) 1245 U/L (26-192) Creatine Kinase MB 6.0 NG/ML (0.5-3.6) 4.3 NG/ML (0.5-3.6) Troponin I 0.63 NG/ML (0.02-0.05) 0.66 NG/ML (0.02-0.05) Hemoglobin 9.9 GM/DL (11.6-15.3) Hematocrit 30.9 % (35.0-46.0) Mean Corpuscular Volume 70.7 FL (80.0-100.0) Mean Corpuscular Hemoglobin 22.5 PG (27.0-34.0) Mean Corpuscular Hemoglobin Concent 31.9 % (32.0-36.0) Red Cell Distribution Width 21.2 % (11.6-17.2) Neutrophils (%) (Auto) 77.0 % (16.0-70.0) Monocytes (%) (Auto) 12.9 % (0.0-8.0) Lymphocytes # (Auto) 0.6 TH/MM3 (1.0-4.8) Creatinine 1.77 MG/DL (0.50-1.00) Albumin 3.1 GM/DL (3.4-5.0) Aspartate Amino Transf (AST/SGOT) 46 U/L (15-37) Estimat Glomerular Filtration Rate 41 ML/MIN (>89) Thyroid Stimulating Hormone 3rd Gen 0.336 uIU/ML (0.358-3.740) Imaging Last Impressions Chest X-Ray 04/13/171925 Signed Impressions: Service Date/Time: Thursday, April 13, 2017 19:46 - CONCLUSION: 1. P[place]amber cardiomegaly 2. Subsegmental infiltrate left lower lobe. Alexey Jarvis MD PE at Discharge GENERAL: Awake alert oriented 3 talkative and cooperative morbidly obese SKIN: Warm and dry. HEAD: Atraumatic. Normocephalic. EYES: Pupils equal and round. No scleral icterus. No injection or drainage. Attractive muscles intact ENT: No nasal bleeding or discharge. Mucous membranes pink and moist. Tongue is midline NECK: Trachea midline. No JVD. Supple CARDIOVASCULAR: Regular rate and rhythm. S1 and S2 no S3 or S4 RESPIRATORY: No accessory muscle use. . Breath sounds equal bilaterally. Decreased breath sounds throughout some scattered rhonchi on the left side GASTROINTESTINAL: Abdomen soft, non-tender, nondistended. Hepatic and splenic margins not palpable. Morbidly obese MUSCULOSKELETAL: Extremities without clubbing, cyanosis, or edema. No obvious deformities. NEUROLOGICAL: Awake and alert. No obvious cranial nerve deficits. Motor grossly within normal limits. Five out of 5 muscle strength in the arms and legs. Normal speech. PSYCHIATRIC: Appropriate mood and affect; insight and judgment normal. Hospital Course 31-year-old female with a past medical history significant for hypertension, cardiomyopathy, CHF with an EF of 40% and asthma presents to the emergency department with a one to two-week history of fever/chills and dyspnea on exertion. The patient reports her symptoms have been worsening. She endorses a nonproductive cough. On arrival to the emergency department she was febrile to 102.8. No leukocytosis. Lactic acid 0.8. Chest x-ray significant for subsegmental infiltrate of the left lower lobe. Troponin was elevated at 0.46, patient has a history of elevated troponin. She denies any chest pain. She was discharged from the hospital on 04/07/17 where she was treated for hypertensive crisis and asthma exacerbation. 12-20 PATIENT COMPLAINS OF COUGH AND CONGESTION HAS POSITIVE TROPONINS WILL CONSULT CARDIOLOGY- SCHEDULED TO SEE DR VEGA HAS LESS SOB, SOME PLEURITIC CHEST PAIN ON THE LEFT SIDE DW RN AND PT CONSULT CARDIOLOGY ADD MUCINEX AND INCENTIVE SPIROMETRY 12-21 STILL COUGH AND CONGESTION HAD FEVERS UP UNTIL THIS MORNING HAS NOT HAD ECHO YET DW RN AND PT CONTINUE ANTIBIOTICS NOT BEEN CLEARED BY CARDIOLOGY 12-22 NO FEVERS TODAY DW PATIENT AND RN FEELING BETTER WANTS TO GO HOME CHANGE TO AUGMENTIN AND DC TO HOME TODAY Pt Condition on Discharge: Good Discharge Disposition: Discharge Home Discharge Time: <= 30 minutes Discharge Instructions DIET: Follow Instructions for: Heart Healthy Diet, Renal Failure Diet Speech Therapy-Diet Recommends: Regular Activities you can perform: Regular-No Restrictions Follow up Referrals: Cardiology - 1 Week with Akhil Vega MD PCP Follow-up - 10 Days with Selvin Spence DO New Medications: Amoxicillin-Clavulanate (Augmentin) 875-125 Mg Tab 1 TAB PO BID for Infection for 10 Days, #20 TAB 0 Refills Easy Air Compressor Nebulizer (Easy Air Compressor Nebulizer) 1 Mis Mis EA .ROUTE DIRECTED for Breathing Treatment, #1 0 Refills Hydralazine HCl (Hydralazine HCl) 25 Mg Tablet 25 MG PO TID for Blood Pressure Management, #90 TAB 0 Refills [Albuterol-Ipratropium Neb] () 1 AMPULE NEBU 1 AMPULE INH Q4HR NEB PRN for SHORTNESS OF BREATH, #180 AMPULE [guaiFENesin ER] () 600 MG TABCR 600 MG PO BID for Cough, #60 TAB Continued Medications: Albuterol 18 GM Inh (Ventolin Hfa 18 GM Inh) 90 Mcg/Act Aer 2 PUFF INH Q4-6H PRN for SHORTNESS OF BREATH, #1 INHALER 0 Refills (This prescription has been renewed) Aspirin DR (Adult Aspirin EC Low Strength) 81 Mg Tabec 81 MG PO DAILY for Heart, #30 TAB 0 Refills (This prescription has been renewed) Furosemide (Lasix) 40 Mg Tab 40 MG PO DAILY for Blood Pressure Management, #30 TAB 0 Refills (This prescription has been renewed) Lisinopril (Lisinopril) 20 Mg Tab 20 MG PO DAILY for Blood Pressure Management, #30 TAB (This prescription has been renewed) Metoprolol Tartrate (Metoprolol Tartrate) 50 Mg Tab 50 MG PO BID for Blood Pressure Management, #60 TAB 0 Refills (This prescription has been renewed) Nifedipine ER 24 HR (Nifedipine ER 24 HR) 30 Mg Tab 30 MG PO DAILY for Blood Pressure Management, #30 TAB (This prescription has been renewed) Potassium Chloride ER (Klor-Con 10) 10 Meq Tab 10 MEQ PO DAILY for Electrolyte Replacement, #30 TAB 0 Refills (This prescription has been renewed) Spironolactone (Spironolactone) 25 Mg Tab 25 MG PO DAILY for Blood Pressure Management, #30 TAB 0 Refills (This prescription has been renewed) Discontinued Medications: Hydralazine HCl (Hydralazine HCl) 25 Mg Tablet 5 MG PO TID for Blood Pressure Management, #60 TAB 0 Refills Selvin Kilgore DO Apr 16, 2017 11:31
--- NOTE | 2017-04-16 12:21 | RADRPT ---
EXAM DATE/TIME: 04/16/2017 11:41 [facility] COMPARISON: No previous studies available for comparison. INDICATIONS : Right leg swelling and calf pain. MEDICAL HISTORY : Hypertension. Hypercholesterolemia. Stroke. Coronary artery disease. Congestive heart failure. SURGICAL HISTORY : None. ENCOUNTER: Initial ACUITY: 1 day PAIN SCORE: 0/10 LOCATION: Right leg. TECHNIQUE: Venous ultrasound of the leg was performed from the inguinal ligament to the proximal calf. Real-kary e, color Doppler and spectral tracing, compression and augmentation techniques were used. FINDINGS: There is normal compressibility of the deep venous system from the inguinal region to the proximal ca lf. No echogenic clot is seen in the lumen of the common femoral, femoral, popliteal, and posterior tibial veins. There is a normal response of the venous system to proximal and distal augmentation an d respiration. CONCLUSION: Normal examination. Byron Canales MD on April 16, 2017 at 12:19 Board Certified Radiologist. This report was verified electronically.
[2017-04-16 12:47] LABS: AUTOMATED NEUTROPHIL # 1.7 TH/MM3 (1.8-7.7); EOSINOPHIL # 0.1 TH/MM3 (0-0.4); EOSINOPHIL % 2.3 % (0.0-4.0); HEMATOCRIT 30.4 % (35.0-46.0); HEMO FLAGS DIFF FINAL; LYMPH % 23.8 % (9.0-44.0); LYMPHOCYTE # 0.7 TH/MM3 (1.0-4.8); MEAN CELL VOLUME 70.9 FL (80.0-100.0); MEAN CORPUSCULAR HEMOGLOBIN 22.5 PG (27.0-34.0); MEAN CORPUSCULAR HGB CONC 31.7 % (32.0-36.0); MONO % 13.4 % (0.0-8.0); NEUT % 59.5 % (16.0-70.0); PLATELET COUNT 232 TH/MM3 (150-450); RED BLOOD COUNT 4.29 MIL/MM3 (4.00-5.30); RED CELL DISTRIBUTION WIDTH 21.6 % (11.6-17.2); WHITE BLOOD COUNT 2.8 TH/MM3 (4.0-11.0)
[2017-04-16 13:02] LABS: ANION GAP 5 MEQ/L (5-15); AST (GOT) 49 U/L (15-37); BICARBONATE 27.6 MEQ/L (21.0-32.0); BLOOD UREA NITROGEN 12 MG/DL (7-18); CHLORIDE 104 MEQ/L (98-107); GLOMERULAR FILTRATION RATE 47 ML/MIN (>89); POTASSIUM 3.8 MEQ/L (3.5-5.1); SODIUM (NA) 137 MEQ/L (136-145)
[2017-04-16 13:08] LABS: ALKALINE PHOSPHATASE 52 U/L (45-117); ALT (GPT) 40 U/L (10-53); TOTAL BILIRUBIN ADULT 0.3 MG/DL (0.2-1.0)
[2017-04-17] MEDS ORDERED: PHARMACY ORDERED LAB ONE (02:45)
== END 2017-04-16 15:03 | disposition home or self-care (01) | DRG 194 ==
LOC: NEPC 18:48 → NEDA 22:52 → NEPGCP 04-14 00:01
PROVIDERS: ADMIT Hospitalist; ATTEND Hospitalist
DX: J18.9 Pneumonia, unspecified organism (principal); I13.0 Hypertensive heart and chronic kidney disease with heart failure and stage 1 through stage 4 chronic kidney disease, or unspecified chronic kidney disease; N17.9 Acute kidney failure, unspecified; I43 Cardiomyopathy in diseases classified elsewhere; Z68.43 Body mass index [BMI] 50.0-59.9, adult; I50.9 Heart failure, unspecified; E66.01 Morbid (severe) obesity due to excess calories; I16.1 Hypertensive emergency; N18.9 Chronic kidney disease, unspecified; R74.8 Abnormal levels of other serum enzymes; J45.909 Unspecified asthma, uncomplicated; R09.02 Hypoxemia; Y95 Nosocomial condition; Z91.013 Allergy to seafood
CPT/HCPCS: 71020; 80048; 80053; 82550; 82552; 83036; 83605; 83735; 83880; 84100; 84439; 84443; 84484; 85025; 87040; 93005; 93306; 93971; 94150; 94640; 94664; 96374; 96375; G8987-GO; G8987-GP; G8988-GO; G8988-GP; G8989-GO; J0456; J0696; J1650; J2270; J2405; J2543; J3370; J7030; J7040; J7050; J7613

== ENCOUNTER 2017-12-14 10:04 | Inpatient (IN) ==
--- NOTE | 2017-12-14 13:30 | ED ---
HPI General Chief complaint: Abdominal Pain Stated complaint: Sob/vomitting/Abd pain Time Seen by Provider: 12/14/17 13:24 History of Present Illness HPI narrative: Patient comes emerge from complaining of abdominal pain and vomiting 1 week. Patient reports vomit is nonbilious and nonbloody. Patient reports that 2 days ago she had some chest pain since resolved. Patient's last night she began feeling short of breath. Shortness of breath is worse with laying flat and improves with sitting up. Patient denies any loss change in bowel or bladder. Patient reports she is on her menstrual cycle currently but has never typically have pain with this. Patient Abdominal pain is cramping like in nature in her lower abdomen without radiation. Patient reports that she has a history of CHF but approximately 3 months he was taken off of her water pills she was told she did not need them. 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 Related Data Home Medications Medication Instructions Recorded Confirmed metoprolol tartrate 25 mg PO BID 12/14/17 12/14/17 Allergies Allergy/AdvReac Type Severity Reaction Status Date / Time shellfish derived AdvReac Severe Anaphylaxis Unverified 04/13/17 20:18 Review of Systems ROS: all other systems reviewed are negative [facility] Medical History Medical History Asthma (Acute) CHF (congestive heart failure) (Acute) Cardiomyopathy (Acute) Hypertension (Acute) Social History Social History Substance History: No History of Abuse Second Hand Smoke Exposure: No Smoking Status: Never smoker How Often Do You Have a Drink Containing Alcohol: Never Recent Travel in [facility] within the Last 8 Weeks: No Recent Out of Country Travel within the Last 8 Weeks: No Immunization History Tetanus Immunization: Unsure Hx Influenza Vaccine This Season: No Exam Narrative Exam Narrative: GENERAL: Well-developed, overly nourished, in mild respiratory distress, and non-ill appearing. SKIN: Focused skin assessment warm and dry. HEAD: Atraumatic. Normocephalic. EYES: Pupils equal and round. EOMI. No scleral icterus. No injection or drainage. ENT: No nasal bleeding or discharge. Mucous membranes pink and moist. NECK: Trachea midline. Supple. No nuclear rigidity. CARDIOVASCULAR: Regular rate and rhythm. No murmur appreciated. RESPIRATORY: No accessory muscle use. No respiratory distress. Decreased breath sounds throughout. GASTROINTESTINAL: Abdomen soft, non-tender, nondistended, and no guarding. Hepatic and splenic margins not palpable. Normal bowel sounds x4. No pulsatile mass. MUSCULOSKELETAL: No obvious deformities. No clubbing. No cyanosis. No edema. Full range of motion. NEUROLOGICAL: Awake and alert. No obvious cranial nerve deficits. Motor grossly within normal limits. Normal speech. PSYCHIATRIC: Appropriate mood and affect; insight and judgment normal. Course Consultations Consultation #1: Discussed patient with Dr. Jay Estrada, who is agreeable to admit the patient. Time: 16:15 Initial Documented Vital Signs Temperature 99.1 F 12/14/17 10:31 Pulse Rate 97 H 12/14/17 10:31 Respiratory Rate 22 12/14/17 10:31 Blood Pressure 191/106 H 12/14/17 10:31 Pulse Oximetry 98 12/14/17 10:31 Last Documented Vital Signs Temperature 99.3 F 12/14/17 18:30 Pulse Rate 85 12/14/17 21:15 Respiratory Rate 33 H 12/14/17 21:15 Blood Pressure 151/81 H 12/14/17 21:15 Pulse Oximetry 97 12/14/17 21:15 Critical Care Time Critical Care Time: Yes Total Critical Care Time: 40 Attestation: Aggregate critical care time was 40 minutes. Time to perform other separately billable procedures was not included in the critical care time. My time did not include minutes spent treating any other patients simultaneously or on activities that did not directly contribute to the patient's treatment. The services I provided to this patient were to treat and/or prevent clinically significant deterioration that could result in: respiratory distress or . I provided critical care services requiring my management, as noted below: Chart data review, documentation time, medication orders and management, vital sign assessments/reviewing monitor data, ordering and reviewing lab tests, ordering and interpreting/reviewing x-rays and diagnostic studies, care of the patient and discussion of the patient with the admitting physicians. Medical Decision Making BRENDEN Attestation BRENDEN supervised visit: Yes Attestation: I, Dr. Neville, have reviewed the advance practice practitioner's documentation and am in agreement, met with the patient face to face, made the diagnosis, and the medical decision making was done by me. *My assessment and Findings: CHF exacerbation vs. pneumonia vs. asthma exacerbation vs. ACS 32yo morbidly obese female with cardiomyopathy EF 40%, HTN here with sob for 2 days. Pt is tachypneic but O2 sat is 100% on RA. Decreased breath sound on right lower lung. No wheezing. Denies any PE/DVT history. Labs reviewed, no leukocytosis. H/H low at 9.9/29.7. Mild hyponatremia at 3.1, replaced orally. Troponin is elevated at 0.52, she has always had mild elevation in troponin. However, there are TWI in EKG so will trend. CPK mildly elevated at 422. Creatinine elevated at 1.59 which is also at baseline. CXR showed cardiomegaly with pulmonary edema pattern and probable small bilateral pleural effusions. Pt given lasix and started on nitroglycerin drip. Pt reevaluated at bedside and is feeling better. Breathing has improved but headache started after nitroglycerin drip. Headache is front and mild with no focal neurologic deficits or vision changes. Will give acetaminophen for headache. MDM Narrative Medical decision making narrative: Patient seen and examined. IV was established patient was placed on continuous cardiac monitoring. Upon review of chest x-ray patient was started on IV Lasix and IV nitro drip. Patient was given aspirin. Discussed patient with Dr. Neville, saw and evaluated the patient and is in agreement with plan of care and disposition. Discussed all findings with patient who is agreeable for admission. Patient's symptoms improved status post Lasix. Discussed patient with hospitalist is agreeable to admit the patient. Patient remained stable throughout ED course. Medical Screen Exam Complete: Yes Emergency Medical Condition: Yes Differential Diagnosis Differential Diagnosis: Metabolic disturbance, CHF exacerbation, pneumonia, UTI , atypical chest pain, uncontrolled hypertension Lab Data Result diagrams: 12/14/17 13:50 12/14/17 20:23 Lab Results 12/14/17 12/14/17 12/14/17 Range/Units 13:45 13:50 13:50 WBC (4.0-11.0) th/mm3 RBC (4.00-5.30) mil/mm3 Hgb (11.6-15.3) gm/dL Hct (35.0-46.0) % MCV (80.0-100.0) fL MCH (27.0-34.0) pg MCHC (32.0-36.0) % RDW (11.6-17.2) % Plt Count (150-450) th/mm3 MPV (7.0-11.0) fL Neut % (Auto) (16.0-70.0) % Lymph % (Auto) (9.0-44.0) % [place] % (Auto) (0.0-8.0) % Eos % (Auto) (0.0-4.0) % Baso % (Auto) (0.0-2.0) % Neut # (Auto) (1.8-7.7) th/mm3 Lymph # (Auto) (1.0-4.8) th/mm3 [place] # (Auto) (0.0-0.9) th/mm3 Eos # (Auto) (0.0-0.4) th/mm3 Baso # (Auto) (0.0-0.2) th/mm3 WBC Differential Differential Comment PT (9.8-11.6) sec INR Ratio APTT (24.3-30.1) sec Sodium (136-145) meq/L Potassium (3.5-5.1) meq/L Chloride (98-107) meq/L Carbon Dioxide (21.0-32.0) meq/L Anion Gap (5-15) meq/L BUN (7-18) mg/dL Creatinine (0.50-1.00) mg/dL Estimated GFR (>89) mL/min Random Glucose (74-106) mg/dL Calcium (8.5-10.1) mg/dL Magnesium (1.5-2.5) mg/dL Total Bilirubin (0.2-1.0) mg/dL AST (15-37) U/L ALT (10-53) U/L Alkaline Phosphatase (45-117) U/L Total Creatine Kinase (26-192) U/L CK-MB (CK-2) (0.5-3.6) ng/mL CK-MB (CK-2) % (0.0-4.0) % Troponin I (0.02-0.05) ng/mL B-Natriuretic Peptide 695 H (0-100) pg/mL Total Protein (6.4-8.2) g/dL Albumin (3.4-5.0) g/dL Lipase 123 (73-393) U/L Urine Color Yellow (Yellw/Straw) Urine Clarity Hazy H (Clear) Urine pH 7.0 (5.0-8.5) Ur Specific [place] 1.013 (1.002-1.035) Urine Protein 100 H (Neg-Trace) mg/dL Urine Glucose (UA) Negative (Negative) mg/dL Urine Ketones Negative (Negative) mg/dL Urine Occult Blood Small H (Negative) Urine Nitrate Negative (Negative) Urine Bilirubin Negative (Negative) Urine Urobilinogen Less than 2 (Less than 2) mg/dL Ur Leukocyte Esterase Trace H (Negative) Urine RBC 9 H (0-3) /hpf Urine WBC 9 H (0-5) /hpf Ur Squamous Epith Cells 2 (0-5) /hpf Urine Bacteria Rare H (None) /hpf Hyaline Casts 7 (0-3) /lpf Micro UA Comment Culture indicated Urine Culture Comments Culture indicated Nasal Screen MRSA (PCR) (Negative) 12/14/17 12/14/17 12/14/17 Range/Units 13:50 13:50 13:50 WBC 9.4 (4.0-11.0) th/mm3 RBC 4.01 (4.00-5.30) mil/mm3 Hgb 9.9 L (11.6-15.3) gm/dL Hct 29.7 L (35.0-46.0) % MCV 74.1 L (80.0-100.0) fL MCH 24.7 L (27.0-34.0) pg MCHC 33.3 (32.0-36.0) % RDW 19.6 H (11.6-17.2) % Plt Count 282 (150-450) th/mm3 MPV 8.4 (7.0-11.0) fL Neut % (Auto) 80.0 H (16.0-70.0) % Lymph % (Auto) 15.8 (9.0-44.0) % [place] % (Auto) 2.3 (0.0-8.0) % Eos % (Auto) 1.3 (0.0-4.0) % Baso % (Auto) 0.6 (0.0-2.0) % Neut # (Auto) 7.5 (1.8-7.7) th/mm3 Lymph # (Auto) 1.5 (1.0-4.8) th/mm3 [place] # (Auto) 0.2 (0.0-0.9) th/mm3 Eos # (Auto) 0.1 (0.0-0.4) th/mm3 Baso # (Auto) 0.1 (0.0-0.2) th/mm3 WBC Differential . Differential Comment Auto diff final PT 11.1 (9.8-11.6) sec INR 1.1 Ratio APTT 24.0 L (24.3-30.1) sec Sodium 140 (136-145) meq/L Potassium 3.1 L (3.5-5.1) meq/L Chloride 103 (98-107) meq/L Carbon Dioxide 29.6 (21.0-32.0) meq/L Anion Gap 7 (5-15) meq/L BUN 17 (7-18) mg/dL Creatinine 1.59 H (0.50-1.00) mg/dL Estimated GFR 46 L (>89) mL/min Random Glucose 102 (74-106) mg/dL Calcium 8.3 L (8.5-10.1) mg/dL Magnesium 1.9 (1.5-2.5) mg/dL Total Bilirubin 0.8 (0.2-1.0) mg/dL AST 24 (15-37) U/L ALT 29 (10-53) U/L Alkaline Phosphatase 77 (45-117) U/L Total Creatine Kinase 422 H (26-192) U/L CK-MB (CK-2) 2.5 (0.5-3.6) ng/mL CK-MB (CK-2) % 0.6 (0.0-4.0) % Troponin I 0.52 H (0.02-0.05) ng/mL B-Natriuretic Peptide (0-100) pg/mL Total Protein 7.8 (6.4-8.2) g/dL Albumin 3.4 (3.4-5.0) g/dL Lipase (73-393) U/L Urine Color (Yellw/Straw) Urine Clarity (Clear) Urine pH (5.0-8.5) Ur Specific [place] (1.002-1.035) Urine Protein (Neg-Trace) mg/dL Urine Glucose (UA) (Negative) mg/dL Urine Ketones (Negative) mg/dL Urine Occult Blood (Negative) Urine Nitrate (Negative) Urine Bilirubin (Negative) Urine Urobilinogen (Less than 2) mg/dL Ur Leukocyte Esterase (Negative) Urine RBC (0-3) /hpf Urine WBC (0-5) /hpf Ur Squamous Epith Cells (0-5) /hpf Urine Bacteria (None) /hpf Hyaline Casts (0-3) /lpf Micro UA Comment Urine Culture Comments Nasal Screen MRSA (PCR) (Negative) 12/14/17 12/14/17 12/14/17 Range/Units 19:00 20:23 20:23 WBC (4.0-11.0) th/mm3 RBC (4.00-5.30) mil/mm3 Hgb (11.6-15.3) gm/dL Hct (35.0-46.0) % MCV (80.0-100.0) fL MCH (27.0-34.0) pg MCHC (32.0-36.0) % RDW (11.6-17.2) % Plt Count (150-450) th/mm3 MPV (7.0-11.0) fL Neut % (Auto) (16.0-70.0) % Lymph % (Auto) (9.0-44.0) % [place] % (Auto) (0.0-8.0) % Eos % (Auto) (0.0-4.0) % Baso % (Auto) (0.0-2.0) % Neut # (Auto) (1.8-7.7) th/mm3 Lymph # (Auto) (1.0-4.8) th/mm3 [place] # (Auto) (0.0-0.9) th/mm3 Eos # (Auto) (0.0-0.4) th/mm3 Baso # (Auto) (0.0-0.2) th/mm3 WBC Differential Differential Comment PT (9.8-11.6) sec INR Ratio APTT (24.3-30.1) sec Sodium (136-145) meq/L Potassium 2.9 L* (3.5-5.1) meq/L Chloride (98-107) meq/L Carbon Dioxide (21.0-32.0) meq/L Anion Gap (5-15) meq/L BUN (7-18) mg/dL Creatinine (0.50-1.00) mg/dL Estimated GFR (>89) mL/min Random Glucose (74-106) mg/dL Calcium (8.5-10.1) mg/dL Magnesium 1.9 (1.5-2.5) mg/dL Total Bilirubin (0.2-1.0) mg/dL AST (15-37) U/L ALT (10-53) U/L Alkaline Phosphatase (45-117) U/L Total Creatine Kinase (26-192) U/L CK-MB (CK-2) (0.5-3.6) ng/mL CK-MB (CK-2) % (0.0-4.0) % Troponin I 0.50 H (0.02-0.05) ng/mL B-Natriuretic Peptide (0-100) pg/mL Total Protein (6.4-8.2) g/dL Albumin (3.4-5.0) g/dL Lipase 98 (73-393) U/L Urine Color (Yellw/Straw) Urine Clarity (Clear) Urine pH (5.0-8.5) Ur Specific [place] (1.002-1.035) Urine Protein (Neg-Trace) mg/dL Urine Glucose (UA) (Negative) mg/dL Urine Ketones (Negative) mg/dL Urine Occult Blood (Negative) Urine Nitrate (Negative) Urine Bilirubin (Negative) Urine Urobilinogen (Less than 2) mg/dL Ur Leukocyte Esterase (Negative) Urine RBC (0-3) /hpf Urine WBC (0-5) /hpf Ur Squamous Epith Cells (0-5) /hpf Urine Bacteria (None) /hpf Hyaline Casts (0-3) /lpf Micro UA Comment Urine Culture Comments Nasal Screen MRSA (PCR) Not detected (Negative) Imaging Data Radiologist's impression: Chest X-Ray 12/14/17 13:25 CONCLUSION: 1. Cardiomegaly with pulmonary edema pattern. 2. Probable small bilateral pleural effusions. ECG Data Interpretation: EKG reviewed by Dr. Neville shows sinus rhythm ventricular rate of 96. No STEMI. TWI I, aVL, V5-V6. LVH. Discharge Plan Discharge Disposition Patient Disposition: 30 Still Patient Discharge Condition Condition: Fair Discharge Details Diagnosis: Congestive heart failure due to hypertension, Hypertensive emergency Physicians Team ED Provider: Michael Claire ED Midlevel Provider: Jose Connors Primary Care Provider: UNKNOWN, Attending Provider: Bill Grey Status ED Status: Left Department Discharge Information Discharge Date/Time: 12/14/17 19:10
--- NOTE | 2017-12-14 14:04 | XR ---
EXAM DATE: 12/14/2017 2:01 PM EDT AGE/SEX: 32 years / Female INDICATIONS: Chest pain and shortness of breath. CLINICAL DATA: This is the patient's initial encounter. Patient reports that signs and symptoms have been present for 3 days and indicates a pain score of 5/10. MEDICAL/SURGICAL HISTORY: Hypertension. Congestive heart failure. None. COMPARISON: [facility] [place], CHEST PA & LAT, 04/13/2017. . FINDINGS: Diffuse hazy opacities in the mid to lower lung zones with indistinct central pulmonary vascularity. Cardiac silhouette is enlarged. Bony thorax is intact. CONCLUSION: 1. Cardiomegaly with pulmonary edema pattern. 2. Probable small bilateral pleural effusions. Electronically signed by: Jeffy Lawson MD 12/14/2017 2:02 PM EDT
[2017-12-14] MEDS: Nitroglycerin Drip Premix 50 MG/250 ML BOTTLE IV.CONT PRN (14:29)
[2017-12-14 14:36] LABS: Bacteria,Urine Rare /hpf; Bilirubin,Urine Negative (Negative); Clarity,Urine Hazy (Clear); Color,Urine Yellow (Yellw/Straw); Glucose,Urine (UA) Negative (Negative); Hyaline Casts,Urine 7 /lpf (0-3); Leukocyte Esterase,Urine Trace (Negative); Nitrite,Urine Negative (Negative); Specific Gravity,Urine 1.013 (1.002-1.035); Squamous Epithelial Cell,Urine 2 /hpf (0-5)
[2017-12-14 14:40] LABS: INR 1.1 Ratio; Prothrombin Time 11.1 sec (9.8-11.6)
[2017-12-14 14:47] LABS: Baso # (Auto) 0.1 th/mm3 (0.0-0.2); Baso % (Auto) 0.6 % (0.0-2.0); Eos # (Auto) 0.1 th/mm3 (0.0-0.4); Eos % (Auto) 1.3 % (0.0-4.0); Hematocrit 29.7 % (35.0-46.0); Hemoglobin 9.9 gm/dL (11.6-15.3); Lymph # (Auto) 1.5 th/mm3 (1.0-4.8); Lymph % (Auto) 15.8 % (9.0-44.0); Mean Corpuscular HGB Conc 33.3 % (32.0-36.0); Mean Corpuscular Hemoglobin 24.7 pg (27.0-34.0); Mean Corpuscular Volume 74.1 fL (80.0-100.0); Mean Platelet Volume 8.4 fL (7.0-11.0); Mono # (Auto) 0.2 th/mm3 (0.0-0.9); Mono % (Auto) 2.3 % (0.0-8.0); Neut # (Auto) 7.5 th/mm3 (1.8-7.7); Platelet Count 282 th/mm3 (150-450); Red Blood Count 4.01 mil/mm3 (4.00-5.30); Red Cell Distribution Width 19.6 % (11.6-17.2); White Blood Count 9.4 th/mm3 (4.0-11.0)
[2017-12-14 14:53] LABS: Alanine Aminotransferase 29 U/L (10-53); Albumin 3.4 g/dL (3.4-5.0); Anion Gap 7 meq/L (5-15); Aspartate Aminotransferase 24 U/L (15-37); Blood Urea Nitrogen 17 mg/dL (7-18); Calcium 8.3 mg/dL (8.5-10.1); Carbon Dioxide 29.6 meq/L (21.0-32.0); Chloride 103 meq/L (98-107); Glomerular Filtration Rate 46 mL/min (>89); Glucose,Random 102 mg/dL (74-106); Magnesium 1.9 mg/dL (1.5-2.5); Potassium 3.1 meq/L (3.5-5.1); Sodium 140 meq/L (136-145)
[2017-12-14 14:57] LABS: Alkaline Phosphatase 77 U/L (45-117); Creatine Kinase 422 U/L (26-192); Total Protein 7.8 g/dL (6.4-8.2); Troponin I 0.52 ng/mL (0.02-0.05)
[2017-12-14 15:10] LABS: CKMB Percent 0.6 % (0.0-4.0); Creatine Kinase MB 2.5 ng/mL (0.5-3.6)
[2017-12-14] MEDS ORDERED: Acetaminophen 325 MG Tablet PO ONE (15:50)
--- NOTE | 2017-12-14 17:35 | P.HPCC ---
History of Present Illness Primary Care Physician: UNKNOWN Chief Complaint: Abdominal pain, nausea and vomiting, shortness of breath History of Present Illness: 32-year-old lady with history of severe hypertension, diagnosed approximately 2 years ago, cardiomyopathy with reduced ejection fraction (on echo done in March 2017, 30-35%), and asthma, with multiple admissions with hypertensive urgency and pulmonary edema now presents to ED complaining of abdominal pain, nausea and vomiting intermittently for approximately 1 week. Over the last few months patient noticed that she gained approximately 20 pounds. Over the last few days patient also noticed lower extremity swelling associated with worsening shortness of breath and initially dry now productive cough and some chest tightness. She denies palpitations, headache, diarrhea, fever or chills. No sick contacts at home. Of note, she was last admitted in March 2017 for hypertensive urgency. Outpatient she was followed by Dr. Swenson. She was also seen her primary care physician and due to improved BP control as outpatient her metoprolol was decreased to 25 twice daily. On ED arrival, patient was found to be severely hypertensive with systolic blood pressure in the 230s-40s. Chest x-ray done in ER showed pulmonary edema. Patient was given Lasix 60 mg IV, potassium 40 mEq and patient was started on a nitro drip CCM was consulted for ICU admission. Patient was seen in ED, she is awake, calm , in good spirits. States that she feels better and her shortness of breath is improved. is present at bedside. Inpatient Certification: I certify that the inpatient services were ordered in accordance with Medicare regulations governing the order. This includes certification that hospital inpatient services are reasonable and necessary and in the case of services not specified as inpatient-only under 42 CFR 419.22(n), that they are appropriately provided as inpatient services in accordance to with the 2-midnight benchmark under 43 CFR 412.3(e) Estimated Total Length of Stay (Days): 2 Plans for Post Hospital Care: Home Review of Systems Constitutional: Reports fatigue, Reports weakness, Reports weight gain, Denies body ache(s), Denies chills, Denies fever(s), Denies headache(s) Eyes: Denies blurry vision, Denies change in vision, Denies double vision, Denies dry eyes Ears, Nose, Mouth, and Throat: Denies bleeding gums, Denies difficulty swallowing, Denies ear pain, Denies nosebleed, Denies sore throat Cardiovascular: Reports chest pain, Reports foot swelling, Reports shortness of breath, Reports shortness of breath with activity, Reports shortness of breath when lying down, Denies fast heart rate Respiratory: Reports chest congestion, Reports cough, Denies wheezing Gastrointestinal: Reports abdominal pain, Reports bloating, Reports nausea, Reports vomiting, Denies black, tarry stools, Denies bright, red blood in stools Genitourinary: Denies blood in urine, Denies difficulty urinating Musculoskeletal: Denies back pain, Denies body aches, Denies joint pain, Denies joint swelling Neurologic: Denies dizziness, Denies fainting, Denies localized weakness, Denies loss of vision PMFSH - History History Provided By: Patient - Medical History Medical History: Medical History (Last Updated 12/14/17 @ 17:05 by Bill Grey MD) Asthma CHF (congestive heart failure) Cardiomyopathy Hypertension - Tobacco History Second Hand Smoke Exposure: No Tobacco Use In Past 30 Days: No Smoking Status: Never smoker - Alcohol History How Often Do You Have a Drink Containing Alcohol: Never - Substance Use History Substance History: No History of Abuse - Travel History Recent Travel in the [place] Within the Last 8 Weeks: No Recent Travel Out of the Country Within the Last 8 Weeks: No - Immunization History Tetanus Immunization: Unsure Hx Influenza Vaccine This Season: No Medications and Allergies Active Medications: Active Medications Hydrocodone Bitart/Acetaminophen ([place] 5/325) 1 tab PO Q4H PRN PRN Reason: Pain 3 to 6 Al Hydroxide/Mg Hydroxide (Milk Of Magnesia Liq) 30 ml PO Q12H PRN PRN Reason: Mild Constipation Chlorhexidine Gluconate (Chlorhexidine 2% Cloth) 3 pack TOPICAL DAILY@0400 MANUEL Stop: 12/20/17 03:59 Chlorhexidine Gluconate (Chlorhexidine 2% Cloth) 3 pack TOPICAL DAILY@0400 PRN PRN Reason: Extra cloth needed Stop: 12/20/17 03:59 Famotidine (Pepcid) 20 mg PO BID MANUEL Heparin Sodium (Porcine) (Heparin Inj) 5,000 units SQ Q12HR MANUEL Nitroglycerin/Dextrose (Nitroglycerin Drip Premix) 50 mg in 250 mls @ 0 mls/hr IV.CONT TITRATE PRN; Protocol PRN Reason: Per Protocol Last Titration: 12/14/17 16:30 Dose: 75 mcg/min, 22.5 mls/hr Ceftriaxone Sodium 1,000 mg/ (Sodium Chloride) 100 mls @ 200 mls/hr IV.SIG Q24H MANUEL Lactobacillus Acidophilus (Lactinex) 1 tab PO TID MANUEL Ondansetron HCl (Zofran Inj) 4 mg IV.PUSH Q6H PRN PRN Reason: NAUSEA OR VOMITING Sodium Chloride (Ns Flush) 2 ml IV.FLUSH UNSCH PRN PRN Reason: FLUSH AFTER USING IV ACCESS Allergies Allergy/AdvReac Type Severity Reaction Status Date / Time shellfish derived AdvReac Severe Anaphylaxis Unverified 04/13/17 20:18 Home Medications Medication Instructions Recorded Confirmed Type metoprolol tartrate 25 mg PO BID 12/14/17 12/14/17 History Results - Labs CBC & Chem 7: 12/14/17 13:50 12/14/17 13:50 Labs: Short CBC 12/14/17 Range/Units 13:50 WBC 9.4 (4.0-11.0) th/mm3 Hgb 9.9 L (11.6-15.3) gm/dL Hct 29.7 L (35.0-46.0) % Plt Count 282 (150-450) th/mm3 BMP 12/14/17 13:50 Sodium 140 Potassium 3.1 L Chloride 103 Carbon Dioxide 29.6 BUN 17 Creatinine 1.59 H Calcium 8.3 L Cardiac Enzymes 12/14/17 Range/Units 13:50 Total Creatine Kinase 422 H (26-192) U/L CK-MB (CK-2) 2.5 (0.5-3.6) ng/mL Troponin I 0.52 H (0.02-0.05) ng/mL Liver Function 12/14/17 Range/Units 13:50 Total Bilirubin 0.8 (0.2-1.0) mg/dL AST 24 (15-37) U/L ALT 29 (10-53) U/L Alkaline Phosphatase 77 (45-117) U/L Albumin 3.4 (3.4-5.0) g/dL Urine 12/14/17 Range/Units 13:45 Urine Color Yellow (Yellw/Straw) Urine Clarity Hazy H (Clear) Urine pH 7.0 (5.0-8.5) Ur Specific [place] 1.013 (1.002-1.035) Urine Protein 100 H (Neg-Trace) mg/dL Urine Glucose (UA) Negative (Negative) mg/dL - Imaging Impressions Chest X-Ray 12/14/17 13:25 CONCLUSION: 1. Cardiomegaly with pulmonary edema pattern. 2. Probable small bilateral pleural effusions. Exam Vital signs: Vital Signs 12/14/17 10:31 12/14/17 14:17 12/14/17 14:18 Temperature 99.1 F Pulse Rate 97 H 93 H Respiratory Rate 22 22 Blood Pressure 191/106 H 186/104 H Pulse Oximetry 98 98 98 12/14/17 15:47 12/14/17 16:31 Temperature Pulse Rate 91 H 101 H Respiratory Rate 17 18 Blood Pressure 198/119 H 218/136 H Pulse Oximetry 98 Intake & Output 12/13/17 12/14/17 12/14/17 18:59 06:59 18:59 Weight 190.509 kg Narrative: General -young lady, morbidly obese, awake, in no distress HEENT - pupils equal, reactive, sclerae anicteric, neck supple, no nuchal rigidity, unable to appreciate neck vein distention due to body habitus, no carotid bruit, moist mucous membranes, no thrush CV - regular S1, S2, no murmurs, distant Chest - crackles at bases b/l, good air entry, no wheezes Abdomen - soft, non-tender, obese, BS present, no hepatomegaly, no splenomegaly Skin - no rashes, no cyanosis Extremities - warm and well perfused, 2+ edema, + peripheral pulses, no clubbing Neuro -awake, alert, oriented 3, motor 5/5 overall extremities Caprini VTE Risk Assessment Caprini VTE Risk Assessment: No/Low Risk (score <= 1) Caprini Risk Assessment Model: Point Value = 1 Point Value = 2 Point Value = 3 Point Value = 5 Age 41-60 Minor surgery BMI > 25 kg/m2 Swollen legs Varicose veins or History of unexplained or recurrent spontaneous Oral contraceptives or hormone replacement Sepsis (< 1 month) Serious lung disease, including pneumonia (< 1 month) Abnormal pulmonary function Acute myocardial infarction Congestive heart failure (< 1 month) History of inflammatory bowel disease Medical patient at bed rest Age 61-74 Arthroscopic surgery Major open surgery (> 45 min) Laparoscopic surgery (> 45 min) Malignancy Confined to bed (> 72 hours) Immobilizing plaster cast Central venous access Age >= 75 History of VTE Family history of VTE Factor V Leiden Prothrombin [id number] Lupus anticoagulant Anticardiolipin antibodies Elevated serum homocysteine Heparin-induced thrombocytopenia Other congenital or acquired thrombophilia Stroke (< 1 month) Elective arthroplasty Hip, pelvis, or leg fracture Acute spinal cord injury (< 1 month) Prophylaxis Regimen: Total Risk Factor Score Risk Level Prophylaxis Regimen 0-1 Low Early ambulation 2 Moderate Order ONE of the following: *Sequential Compression Device (SCD) *Heparin 5000 units SQ BID 3-4 Higher Order ONE of the following medications: *Heparin 5000 units SQ TID *Enoxaparin/Lovenox 40 mg SQ daily (WT < 150 kg, CrCl > 30 mL/min) *Enoxaparin/Lovenox 30 mg SQ daily (WT < 150 kg, CrCl > 10-29 mL/min) *Enoxaparin/Lovenox 30 mg SQ BID (WT < 150 kg, CrCl > 30 mL/min) AND/OR *Sequential Compression Device (SCD) 5 or more Highest Order ONE of the following medications: *Heparin 5000 units SQ TID (Preferred with Epidurals) *Enoxaparin/Lovenox 40 mg SQ daily (WT < 150 kg, CrCl > 30 mL/min) *Enoxaparin/Lovenox 30 mg SQ daily (WT < 150 kg, CrCl > 10-29 mL/min) *Enoxaparin/Lovenox 30 mg SQ BID (WT < 150 kg, CrCl > 30 mL/min) AND *Sequential Compression Device (SCD) Assessment and Plan - Assessment and Plan Plan: 1. Hypertensive emergency 2. Acute pulmonary edema, acute exacerbation of systolic CHF 3. YOLY 4. Hypokalemia 5. Cardiomyopathy with reduced ejection fraction 30 -35% 6. Rule out ACS 1. Admit to ICU 2. Continue nitro drip. We will aim to decrease map by 25-30% 3. Received aspirin 4. Received Lasix 60 in ED. repeat basic metabolic panel in the evening and we will re-dose Lasix tonight 5. Avoid beta-blockers 6. Monitor urine output and creatinine 7. Start ERON when creatinine improves 8. Repeat echo 9. Serial cardiac enzymes 10. Cardiology consultation 11. Cardiac diet 12. GI and DVT prophylaxis I discussed the plan of care in detail with patient and patient's present at bedside.
[2017-12-14] MEDS ORDERED: Potassium Chloride 25 MEQ Effervescent Tablet PO PRN (17:39)
[2017-12-14] MEDS ORDERED: Magnesium Sulfate Inj 2 GM in Sodium Chlor 0.9% Inj 96 ML IV.SIG PRN (17:39)
[2017-12-14] MEDS ORDERED: Potassium Phosphate Inj 30 MMOL in Sodium Chlor 0.9% Inj 250 ML IV.SIG PRN (17:39)
[2017-12-14] MEDS ORDERED: Magnesium Oxide 400 MG Tablet PO PRN (17:39)
[2017-12-14] MEDS ORDERED: Magnesium Sulfate Inj 4 GM in Sodium Chlor 0.9% Inj 92 ML IV.SIG PRN (17:39)
[2017-12-14] MEDS ORDERED: Potassium Chlor 20 mEq Premix 20 MEQ/100 ML PIGGYBACK IV.SIG PRN (17:39)
[2017-12-14] MEDS ORDERED: Sodium Phosphate Inj 30 MMOL in Sodium Chlor 0.9% Inj 250 ML IV.SIG PRN (17:39)
[2017-12-14] MEDS ORDERED: Potassium Chlor 40 mEq Premix 40 MEQ/100 ML PIGGYBACK IV.SIG PRN ×2 (17:39)
[2017-12-14] MEDS ORDERED: Potassium Phosphate 500 MG Soluble Tablet PO PRN ×2 (17:39)
[2017-12-14] MEDS: Lactobacillus Acidophilus/L. Spores Tablet PO SCH (18:46)
[2017-12-14] MEDS: Heparin - SQ 10,000 UNITS/ML Vial SQ SCH (20:53)
[2017-12-14] MEDS: Famotidine 20 MG Tablet PO SCH (20:53)
[2017-12-14 22:01] LABS: Magnesium 1.9 mg/dL (1.5-2.5)
[2017-12-14 22:07] LABS: Potassium 2.9 meq/L (3.5-5.1)
[2017-12-14] MEDS: Potassium Chlor 20 mEq Premix 20 MEQ/100 ML PIGGYBACK IV.SIG PRN (22:42)
--- NOTE | 2017-12-14 23:43 | ECG ---
Date Performed: 12/14/2017 Time Performed: 14:06:10 PTAGE: 32 years EKG: SINUS TACHYCARDIA ST DEVIATION AND MODERATE T-WAVE ABNORMALITY, CONSIDER LATERAL ISCHEMIA A BNORMAL ECG PREVIOUS TRACING : 04/15/2017 06.03 Compared to previous tracing, rate has increased DOCTOR: Kojo Bal Interpretating Date/Time 12/14/2017 23:43:33
[2017-12-15] MEDS: Potassium Chlor 20 mEq Premix 20 MEQ/100 ML PIGGYBACK IV.SIG PRN ×7 (00:47→23:15)
[2017-12-15] MEDS: Nitroglycerin Drip Premix 50 MG/250 ML BOTTLE IV.CONT PRN ×4 (02:51→23:10)
[2017-12-15] MEDS: Chlorhexidine Gluconate 2% 1 Pack (2 Cloths) TOPICAL SCH (03:15)
[2017-12-15 03:36] LABS: Baso # (Auto) 0.1 th/mm3 (0.0-0.2); Baso % (Auto) 0.7 % (0.0-2.0); Eos # (Auto) 0.2 th/mm3 (0.0-0.4); Eos % (Auto) 2.1 % (0.0-4.0); Hematocrit 28.3 % (35.0-46.0); Hemoglobin 9.3 gm/dL (11.6-15.3); Lymph % (Auto) 11.2 % (9.0-44.0); Mean Corpuscular HGB Conc 32.7 % (32.0-36.0); Mean Corpuscular Hemoglobin 24.2 pg (27.0-34.0); Mean Corpuscular Volume 74.2 fL (80.0-100.0); Mean Platelet Volume 8.2 fL (7.0-11.0); Mono # (Auto) 0.3 th/mm3 (0.0-0.9); Mono % (Auto) 3.4 % (0.0-8.0); Neut # (Auto) 7.7 th/mm3 (1.8-7.7); Neut % (Auto) 82.6 % (16.0-70.0); Platelet Count 258 th/mm3 (150-450); Red Blood Count 3.82 mil/mm3 (4.00-5.30); Red Cell Distribution Width 19.6 % (11.6-17.2); White Blood Count 9.3 th/mm3 (4.0-11.0)
[2017-12-15] MEDS ORDERED: Chlorhexidine Gluconate 2% 1 Pack (2 Cloths) TOPICAL SCH (04:00)
[2017-12-15] MEDS ORDERED: Chlorhexidine Gluconate 2% 1 Pack (2 Cloths) TOPICAL PRN ×2 (04:00)
[2017-12-15 04:01] LABS: Alanine Aminotransferase 27 U/L (10-53); Albumin 3.4 g/dL (3.4-5.0); Anion Gap 7 meq/L (5-15); Aspartate Aminotransferase 19 U/L (15-37); Blood Urea Nitrogen 19 mg/dL (7-18); Calcium 7.9 mg/dL (8.5-10.1); Carbon Dioxide 30.7 meq/L (21.0-32.0); Chloride 103 meq/L (98-107); Glomerular Filtration Rate 46 mL/min (>89); Glucose,Random 100 mg/dL (74-106); Magnesium 1.9 mg/dL (1.5-2.5); Phosphorus 3.4 mg/dL (2.5-4.9); Potassium 3.1 meq/L (3.5-5.1); Sodium 141 meq/L (136-145)
[2017-12-15 04:05] LABS: Alkaline Phosphatase 68 U/L (45-117); Total Protein 7.5 g/dL (6.4-8.2); Troponin I 0.45 ng/mL (0.02-0.05)
[2017-12-15] MEDS: Famotidine 20 MG Tablet PO SCH ×2 (08:07→20:57)
[2017-12-15] MEDS: Lactobacillus Acidophilus/L. Spores Tablet PO SCH ×3 (08:07→18:15)
[2017-12-15] MEDS: Heparin - SQ 10,000 UNITS/ML Vial SQ SCH ×2 (08:08→20:56)
--- NOTE | 2017-12-15 08:44 | P.PNCC ---
Subjective Subjective Remarks/Hospital Course: 32-year-old lady with history of severe hypertension, diagnosed approximately 2 years ago, cardiomyopathy with reduced ejection fraction (on echo done in March 2017, 30-35%), and asthma, with multiple admissions with hypertensive urgency and pulmonary edema now presents to ED complaining of abdominal pain, nausea and vomiting intermittently for approximately 1 week. Over the last few months patient noticed that she gained approximately 20 pounds. Over the last few days patient also noticed lower extremity swelling associated with worsening shortness of breath and initially dry now productive cough and some chest tightness. She denies palpitations, headache, diarrhea, fever or chills. No sick contacts at home. Of note, she was last admitted in March 2017 for hypertensive urgency. Outpatient she was followed by Dr. Swenson. She was also seen her primary care physician and due to improved BP control as outpatient her metoprolol was decreased to 25 twice daily. On ED arrival, patient was found to be severely hypertensive with systolic blood pressure in the 230s-40s. Chest x-ray done in ER showed pulmonary edema. Patient was given Lasix 60 mg IV, potassium 40 mEq and patient was started on a nitro drip CCM was consulted for ICU admission. Patient was seen in ED, she is awake, calm , in good spirits. States that she feels better and her shortness of breath is improved. is present at bedside. Subjective: 12/15: No events over the night. Blood pressure better controlled, with systolic around 170s-180, on nitroglycerin at 165. Patient feels better, shortness of breath is improved, denies any chest tightness. No headache. ROS - denies fever, chills, weakness, dizziness, no headache, no blurry vision, no double vision, no localized weakness, no CP, palpitations, no dyspnea, cough or wheezes, still has some mild abdominal pain, but no nausea, no vomiting, denies diarrhea, no dysuria, + urinary frequency Objective Vital Signs / I&O: Vital Signs 12/14/17 10:31 12/14/17 14:17 12/14/17 14:18 Temperature 99.1 F Pulse Rate 97 H 93 H Respiratory Rate 22 22 Blood Pressure 191/106 H 186/104 H Pulse Oximetry 98 98 98 12/14/17 15:47 12/14/17 16:31 12/14/17 16:58 Temperature Pulse Rate 91 H 101 H Respiratory Rate 17 18 Blood Pressure 198/119 H 218/136 H 195/109 H Pulse Oximetry 98 12/14/17 17:20 12/14/17 18:00 12/14/17 18:10 Temperature 99.3 F Pulse Rate 85 83 86 Respiratory Rate 19 19 Blood Pressure 193/103 H 175/98 H Pulse Oximetry 98 99 12/14/17 18:30 12/14/17 18:31 12/14/17 18:33 Temperature 99.3 F Pulse Rate 82 82 87 Respiratory Rate 28 H 28 H 32 H Blood Pressure 175/98 H 145/82 H Pulse Oximetry 99 98 99 12/14/17 18:34 12/14/17 18:37 12/14/17 18:44 Temperature Pulse Rate 93 H 95 H 85 Respiratory Rate 31 H 30 H 30 H Blood Pressure 154/113 H 185/105 H 167/94 H Pulse Oximetry 100 100 100 12/14/17 18:45 12/14/17 18:50 12/14/17 18:55 Temperature Pulse Rate 84 84 83 Respiratory Rate 33 H 35 H 22 Blood Pressure 174/97 H 170/91 H 174/95 H Pulse Oximetry 100 100 97 12/14/17 19:00 12/14/17 19:05 12/14/17 19:09 Temperature Pulse Rate 83 82 83 Respiratory Rate 21 21 36 H Blood Pressure 165/89 H 175/91 H Pulse Oximetry 98 98 94 L 12/14/17 19:10 12/14/17 19:15 12/14/17 19:20 Temperature Pulse Rate 83 83 90 Respiratory Rate 27 H 13 Blood Pressure 175/90 H 174/86 H 168/68 H Pulse Oximetry 93 L 97 82 L 12/14/17 19:26 12/14/17 19:31 12/14/17 19:36 Temperature Pulse Rate 89 84 84 Respiratory Rate 25 H 91 H Blood Pressure 193/106 H 176/94 H 185/104 H Pulse Oximetry 96 96 94 L 12/14/17 19:41 12/14/17 19:46 12/14/17 19:50 Temperature Pulse Rate 83 82 81 Respiratory Rate 15 19 8 L Blood Pressure 166/84 H 169/84 H 163/82 H Pulse Oximetry 94 L 99 96 12/14/17 19:55 12/14/17 20:00 12/14/17 20:06 Temperature 98.5 F Pulse Rate 81 84 84 Respiratory Rate 30 H 26 H 26 H Blood Pressure 163/79 H 190/92 H 190/92 H Pulse Oximetry 96 93 L 93 L 12/14/17 21:00 12/14/17 21:15 12/14/17 21:37 Temperature Pulse Rate 85 85 89 Respiratory Rate 33 H 33 H 36 H Blood Pressure 151/81 H 151/81 H 170/82 H Pulse Oximetry 97 97 98 12/14/17 21:45 12/14/17 22:00 12/14/17 22:10 Temperature Pulse Rate 82 85 Respiratory Rate 30 H 23 Blood Pressure 153/80 H 161/84 H Pulse Oximetry 97 92 L 96 12/14/17 22:19 12/14/17 22:30 12/14/17 22:46 Temperature Pulse Rate 90 84 87 Respiratory Rate 28 H 11 L 36 H Blood Pressure 171/94 H 157/83 H 194/109 H Pulse Oximetry 99 94 L 95 12/14/17 23:00 12/14/17 23:04 12/14/17 23:15 Temperature Pulse Rate 86 86 88 Respiratory Rate 42 H 38 H 30 H Blood Pressure 173/101 H 177/102 H Pulse Oximetry 95 95 94 L 12/14/17 23:24 12/14/17 23:30 12/14/17 23:36 Temperature Pulse Rate 87 86 Respiratory Rate 16 26 H 36 H Blood Pressure 185/102 H 189/106 H Pulse Oximetry 96 97 12/14/17 23:45 12/15/17 00:00 12/15/17 00:15 Temperature 98.2 F Pulse Rate 99 H 87 89 Respiratory Rate 37 H 32 H 41 H Blood Pressure 178/102 H 174/101 H 182/110 H Pulse Oximetry 86 L 95 93 L 12/15/17 00:19 12/15/17 00:30 12/15/17 00:45 Temperature Pulse Rate 88 89 91 H Respiratory Rate 23 20 31 H Blood Pressure 176/103 H 176/99 H 177/101 H Pulse Oximetry 92 L 86 L 87 L 12/15/17 01:00 12/15/17 01:15 12/15/17 01:30 Temperature Pulse Rate 87 89 90 Respiratory Rate 30 H 33 H 34 H Blood Pressure 160/88 H 162/89 H 165/87 H Pulse Oximetry 94 L 95 90 L 12/15/17 01:45 12/15/17 02:00 12/15/17 02:15 Temperature Pulse Rate 90 90 91 H Respiratory Rate 32 H 10 L 38 H Blood Pressure 165/88 H 164/95 H 174/105 H Pulse Oximetry 94 L 88 L 91 L 12/15/17 02:18 12/15/17 02:30 12/15/17 02:45 Temperature Pulse Rate 90 88 87 Respiratory Rate 40 H 20 38 H Blood Pressure 174/100 H 174/102 H 175/101 H Pulse Oximetry 97 95 95 12/15/17 03:00 12/15/17 03:16 12/15/17 03:20 Temperature Pulse Rate 88 89 89 Respiratory Rate 16 21 19 Blood Pressure 181/105 H 153/114 H 178/100 H Pulse Oximetry 91 L 96 98 12/15/17 03:58 12/15/17 03:59 12/15/17 04:00 Temperature 98.7 F Pulse Rate 90 90 90 Respiratory Rate 25 H 21 21 Blood Pressure 186/112 H 191/110 H 192/107 H Pulse Oximetry 97 97 100 12/15/17 04:07 12/15/17 04:10 12/15/17 04:15 Temperature Pulse Rate 89 88 89 Respiratory Rate 16 20 30 H Blood Pressure 193/102 H 179/104 H 181/98 H Pulse Oximetry 95 98 98 12/15/17 04:20 12/15/17 04:23 12/15/17 04:30 Temperature Pulse Rate 88 89 88 Respiratory Rate 39 H 24 25 H Blood Pressure 182/98 H 182/99 H 180/97 H Pulse Oximetry 98 97 99 12/15/17 04:45 12/15/17 05:00 12/15/17 05:15 Temperature Pulse Rate 91 H 90 90 Respiratory Rate 27 H 15 22 Blood Pressure 185/109 H 174/92 H 181/93 H Pulse Oximetry 93 L 91 L 96 12/15/17 05:30 12/15/17 05:35 12/15/17 05:45 Temperature Pulse Rate 92 H 92 H 93 H Respiratory Rate 30 H 31 H 25 H Blood Pressure 182/92 H 179/89 H 172/91 H Pulse Oximetry 95 95 97 12/15/17 06:00 12/15/17 06:15 08/22/18 06:30 Temperature Pulse Rate 91 H 92 H 92 H Respiratory Rate 46 H 21 9 L Blood Pressure 159/84 H 145/87 H 157/87 H Pulse Oximetry 97 99 98 Intake & Output 12/14/17 12/15/17 12/15/17 18:59 06:59 18:59 Intake Total 770 / 770 250 / 250 Balance 770 / 770 250 / 250 Weight 190.509 kg Intake: IV 650 / 650 250 / 250 Nitroglycerin Drip Premix 50 mg 250 / 250 250 / 250 In 250 ml @ Per Protocol IV. CONT TITRATE PRN Rx#:[id number] KCl 20 mEq Premix Inj 20 meq In 300 / 300 100 ml @ 50 mls/hr IV.SIG Q2H PRN Rx#:[id number] Rocephin Inj 1,000 MG In NS Inj 100 / 100 100 ML @ 200 mls/hr IV.SIG Q24H MANUEL Rx#:[id number] Oral 120 / 120 Other: # Voids 8 Date of Last Bowel Movement 12/14/17 # Bowel Movements 1 Result Diagrams: 12/15/17 03:25 12/15/17 03:25 Objective Remarks: General -young lady, morbidly obese, awake, in no distress HEENT - pupils are equal, and reactive, sclerae are anicteric, neck is supple, no rigidity, unable to appreciate neck vein distention due to body habitus, no carotid bruit, moist mucous membranes, no thrush CV - regular heart sounds, no murmurs, distant Chest - minimal crackles at bases posterior, no wheezes Abdomen - soft, non-tender, obese, BS present, no hepatomegaly, no splenomegaly Skin - no rashes, no cyanosis Extremities - warm and well perfused, 1+ edema, + peripheral pulses, no clubbing Neuro -awake, alert, oriented 3, motor 5/5 overall extremities Assessment and Plan - Assessment and Plan Plan: 1. Hypertensive emergency -improved, BP better controlled on nitro drip 2. Acute pulmonary edema, acute exacerbation of systolic CHF -symptoms improved , LE edema improved as well 3. YOLY -creatinine is unchanged 4. Hypokalemia -repleting 5. Cardiomyopathy with reduced ejection fraction 30 -35% 6. Rule out ACS 1. Continue nitro drip. Now we can lower SBP below 170 2. Continue aspirin 3. Check lipid profile 4. Cardiology consult 5. Echocardiogram 6. Start p.o. meds with hydralazine and isosorbide dinitrate for now 7. Will restart beta-blockers hopefully tomorrow once the acute exacerbation improves 8. Patient will need an ERON or an ARB. Hopefully we can start soon once the kidney function improves 9. Replete potassium 10. Re-dose Lasix 40 IV daily 11. Cardiac diet 12. GI and DVT prophylaxis No family present at bedside. I discussed the plan of care in detail with patient.
[2017-12-15] MEDS ORDERED: hydrALAZINE 25 MG Tablet PO SCH (09:00)
[2017-12-15 12:49] LABS: Calcium 8.2 mg/dL (8.5-10.1); Carbon Dioxide 30.4 meq/L (21.0-32.0); Potassium 3.1 meq/L (3.5-5.1)
[2017-12-15 12:53] LABS: Chol/HDL Ratio 4.38 Ratio; HDL Cholesterol 31.5 mg/dL (40.0-60.0)
--- NOTE | 2017-12-15 13:24 | MB ---
cc: Navneet Mon MD DATE: 12/15/2017 REASON FOR CONSULTATION: Congestive heart failure, nonischemic cardiomyopathy. HISTORY OF PRESENT ILLNESS: The patient is a 32-year-old female with a history of hypertension, probably nonischemic cardiomyopathy with ejection fraction of 35% by echocardiogram in 04/15/17, hyperlipidemia, asthma, who presented to the hospital with a 5-day history of increasing shortness of breath, pedal edema, periumbilical abdominal pain, nausea, vomiting. Initially, her blood pressures were as high as 218/136. Intermittently, she does experience left upper and midline chest discomfort described as "pressure," never lasting more than a couple of minutes with no relationship to exertion without associated diaphoresis or nausea. The patient reports compliance with her medication, which is only metoprolol at home. She states she was on 6 different medications about 3 months ago, but they were stopped apparently because her blood pressures were under much better control. In the last few days, she has had paroxysmal nocturnal dyspnea as well as orthopnea. She reports compliance with a no added salt diet. The patient also denies syncope, but has had occasional moderate lightheadedness and near syncope, never lasting more than a few seconds. PAST MEDICAL HISTORY: 1. Hypertension. 2. Probably nonischemic cardiomyopathy dating back to at least 12/2015, at which time her ejection fraction was 40% to 45% by echocardiogram. She had a nuclear stress test 01/23/2016, which showed a fixed anterolateral defect, possibly from breast attenuation artifact, ejection fraction 24%. Echo 03/2017 showed ejection fraction of 30-35% although it was technically very difficult. 3. Dyslipidemia. 4. Asthma. CARDIAC MEDICATIONS AT HOME: Metoprolol 25 mg b.i.d. ALLERGIES: SHELLFISH. FAMILY HISTORY: There is no significant family history of early myocardial infarction. Her mother has hypertension as does her father who also has diabetes. SOCIAL HISTORY: The patient denies any history of alcohol or tobacco abuse. REVIEW OF SYSTEMS: As in history of present illness, otherwise negative or noncontributory. She also denies melena, bright red blood per rectum, dyspepsia, fevers, cough. She reports a mild headache over the last few days. PHYSICAL EXAMINATION: VITAL SIGNS: Her blood pressure 192/92 with a pulse of 94, respirations 30. GENERAL: She is a well-developed, well-nourished female in no acute distress. NECK: Jugular venous pressure is hard to assess. Carotid pulses are 2+ bilaterally and without bruits. CHEST: Reveals diminished breath sounds at the bases. CARDIAC: She has a regular rhythm and rate without S3, S4, or murmur. ABDOMEN: She has a soft, obese, nontender abdomen. Bowel sounds are present. There is no definite hepatosplenomegaly. EXTREMITIES: Reveals no clubbing, cyanosis or edema. DIAGNOSTIC STUDIES: EKG shows sinus tachycardia, ST and T-wave abnormality, consider lateral ischemia. Chest x-ray shows diffuse hazy opacities in the mid to lower lung m[place], small bilateral pleural effusions. LABORATORY DATA: Includes potassium 3.1, BUN 19, creatinine 1.60. Troponin 0.52. CK 422. Brain natriuretic peptide level 695. WBC 9.3, hemoglobin 9.3, platelets 258. IMPRESSION: Hypertensive emergency, congestive heart failure, slightly elevated troponin levels in this 32-year-old female with a history of mostly poorly controlled hypertension, history of probably nonischemic cardiomyopathy, dyslipidemia, asthma. Since coming into the hospital, her dyspnea and pedal edema have improved with intravenous Lasix diuresis. Her blood pressures are better, although still very suboptimal. Overall, I doubt the slight elevations in troponin levels are due to acute coronary syndrome. The troponin increases are in the setting of renal insufficiency. She has had a nuclear stress test about 2 years ago showing no ischemia. The slight elevation in troponin levels and the chest discomforts may be due to markedly elevated blood pressures. The patient does report compliance with medications and no added salt diet. RECOMMENDATIONS: 1. Her beta obinna can probably be resumed; would recommend an increased dosage of 50 mg b.i.d. 2. Agree with hydralazine and nitrates. 3. No ERON inhibitor or angiotensin receptor obinna at this time with her renal insufficiency. 4. Await her 2-D echocardiogram. 5. Long-term extremely aggressive hypertension management. MD RENAN [email or web address]/cam , 12:51 PM , 01:04 PM [facility]
[2017-12-15] MEDS: hydrALAZINE 25 MG Tablet PO SCH ×2 (15:12→18:15)
[2017-12-15] MEDS: amLODIPine 5 MG Tablet PO SCH (18:15)
[2017-12-15] MEDS ORDERED: Metoprolol Tartrate 50 MG Tablet PO SCH (21:00)
[2017-12-16] MEDS: Nitroglycerin Drip Premix 50 MG/250 ML BOTTLE IV.CONT PRN ×3 (04:00→18:22)
[2017-12-16] MEDS: Chlorhexidine Gluconate 2% 1 Pack (2 Cloths) TOPICAL SCH (04:00)
[2017-12-16] MEDS ORDERED: hydrALAZINE 25 MG Tablet PO SCH (07:26)
--- NOTE | 2017-12-16 07:26 | P.PNCA ---
Subjective Interval history: Mild intermittent nausea. No vomiting. Abdominal pain overall better. No CP, dyspnea this am. Slept well, no PND. Physical Exam Vital signs: Vital Signs 12/15/17 07:30 12/15/17 07:45 12/15/17 08:00 Pulse Rate 92 H 91 H 92 H Respiratory Rate 12 17 33 H Blood Pressure 169/86 H 172/84 H 170/93 H Pulse Oximetry 92 L 96 100 12/15/17 08:15 12/15/17 08:30 12/15/17 08:45 Pulse Rate 91 H 91 H 93 H Respiratory Rate 26 H 34 H 31 H Blood Pressure 173/90 H 167/92 H 176/86 H Pulse Oximetry 100 95 91 L 12/15/17 09:00 12/15/17 09:15 12/15/17 09:17 Pulse Rate 93 H 93 H 96 H Respiratory Rate 30 H 42 H 16 Blood Pressure 148/84 H 162/85 H Pulse Oximetry 98 93 L 94 L 12/15/17 09:30 12/15/17 09:45 12/15/17 10:00 Pulse Rate 93 H 93 H 93 H Respiratory Rate 37 H 42 H 3 L Blood Pressure 158/86 H 162/87 H 170/89 H Pulse Oximetry 97 95 94 L 12/15/17 10:15 12/15/17 10:30 12/15/17 10:45 Pulse Rate 94 H 93 H 93 H Respiratory Rate 28 H 25 H 39 H Blood Pressure 171/90 H 163/92 H 169/96 H Pulse Oximetry 95 97 98 12/15/17 11:09 12/15/17 11:12 12/15/17 11:15 Pulse Rate 108 H 101 H 100 H Respiratory Rate 36 H 32 H 30 H Blood Pressure 206/108 H 186/97 H Pulse Oximetry 92 L 98 96 12/15/17 11:30 12/15/17 11:45 12/15/17 12:00 Pulse Rate 96 H 94 H 95 H Respiratory Rate 31 H 32 H 22 Blood Pressure 199/93 H 192/92 H 185/92 H Pulse Oximetry 97 98 92 L 12/15/17 12:15 12/15/17 12:30 12/15/17 12:45 Pulse Rate 94 H 95 H 94 H Respiratory Rate 31 H 11 L 29 H Blood Pressure 195/95 H 193/96 H 178/93 H Pulse Oximetry 96 94 L 98 12/15/17 13:00 12/15/17 13:15 12/15/17 13:30 Pulse Rate 93 H 97 H 96 H Respiratory Rate 21 41 H 42 H Blood Pressure 182/91 H 185/91 H 194/92 H Pulse Oximetry 96 91 L 87 L 12/15/17 13:45 12/15/17 14:00 12/15/17 14:15 Pulse Rate 97 H 98 H 97 H Respiratory Rate 38 H 29 H 33 H Blood Pressure 193/90 H 191/88 H 183/83 H Pulse Oximetry 86 L 86 L 89 L 12/15/17 14:31 12/15/17 14:35 12/15/17 14:45 Pulse Rate 95 H 94 H 96 H Respiratory Rate 8 L 20 31 H Blood Pressure 192/87 H 200/89 H Pulse Oximetry 93 L 96 12/15/17 14:59 12/15/17 15:00 12/15/17 15:15 Pulse Rate 101 H 99 H 93 H Respiratory Rate 31 H 37 H 30 H Blood Pressure 186/91 H 183/89 H 167/91 H Pulse Oximetry 92 L 95 95 12/15/17 15:30 12/15/17 15:45 12/15/17 16:00 Pulse Rate 93 H 93 H 94 H Respiratory Rate 34 H 40 H 20 Blood Pressure 174/92 H 166/87 H 176/95 H Pulse Oximetry 100 100 96 12/15/17 16:15 12/15/17 16:30 12/15/17 16:45 Pulse Rate 93 H 95 H 97 H Respiratory Rate 46 H 32 H 18 Blood Pressure 165/90 H 164/87 H 174/90 H Pulse Oximetry 94 L 93 L 89 L 12/15/17 17:00 12/15/17 17:19 12/15/17 17:30 Pulse Rate 97 H 101 H 96 H Respiratory Rate 22 0 L 21 Blood Pressure 177/96 H 169/95 H 167/97 H Pulse Oximetry 90 L 90 L 94 L 12/15/17 17:45 12/15/17 18:00 12/15/17 20:00 Pulse Rate 96 H 97 H 101 H Respiratory Rate 21 28 H Blood Pressure 165/89 H 176/94 H Pulse Oximetry 91 L 93 L 93 L 12/16/17 00:00 12/16/17 04:00 Pulse Rate 87 90 Respiratory Rate Blood Pressure Pulse Oximetry Intake & Output 12/15/17 12/16/17 12/16/17 18:59 06:59 18:59 Intake Total 800 / 800 800 / 800 Balance 800 / 800 800 / 800 Intake: IV 800 / 800 800 / 800 Nitroglycerin Drip Premix 50 mg 500 / 500 500 / 500 In 250 ml @ Per Protocol IV. CONT TITRATE PRN Rx#:[id number] KCl 20 mEq Premix Inj 20 meq In 200 / 200 300 / 300 100 ml @ 50 mls/hr IV.SIG Q2H PRN Rx#:[id number] Rocephin Inj 1,000 MG In NS Inj 100 / 100 100 ML @ 200 mls/hr IV.SIG Q24H MANUEL Rx#:[id number] Other: # Voids 6 Date of Last Bowel Movement 12/14/17 12/14/17 - Constitutional no acute distress - Routine Neck Exam Absent: JVD - Routine Respiratory Exam Present: CTA bilaterally - Routine Cardiovascular Exam Present: RRR, S1, S2. Absent: murmur, gallop - Routine Abdominal Exam Present: soft, normoactive bowel sounds. Absent: tenderness, organomegaly - Routine Extremities Exam Absent: cyanosis, clubbing, edema Assessment and Plan - Assessment (1) Congestive heart failure Code(s): I50.9 - Heart failure, unspecified Status: Acute Plan: Overall symptomatically improved. Echo pending. BP's still suboptimal. Suspect her cardiomyopathy is nonischemic in etiology and due to longstanding mostly uncontrolled HTN. Rec continue beta obinna/hydralazine/nitrate, diuresis. Optimize BP control. Await echo. (2) Hypertensive emergency Code(s): I16.1 - Hypertensive emergency Status: Acute Plan: BP's overall still suboptimal. Recommend increase metoprolol, hydralazine doses. Consider add ERON-I. - Plan Code Status: full code Discussed Condition With: patient (1) Congestive heart failure Qualifiers: Heart failure type: combined systolic and diastolic Heart failure chronicity : acute Qualified Code(s): I50.41 - Acute combined systolic (congestive) and diastolic (congestive) heart failure
[2017-12-16 07:34] LABS: Baso # (Auto) 0.1 th/mm3 (0.0-0.2); Baso % (Auto) 0.7 % (0.0-2.0); Eos # (Auto) 0.2 th/mm3 (0.0-0.4); Eos % (Auto) 1.9 % (0.0-4.0); Hemoglobin 8.5 gm/dL (11.6-15.3); Mean Corpuscular HGB Conc 32.7 % (32.0-36.0); Mean Corpuscular Hemoglobin 24.3 pg (27.0-34.0); Mean Corpuscular Volume 74.3 fL (80.0-100.0); Mean Platelet Volume 8.5 fL (7.0-11.0); Mono # (Auto) 0.6 th/mm3 (0.0-0.9); Mono % (Auto) 5.7 % (0.0-8.0); Neut # (Auto) 8.3 th/mm3 (1.8-7.7); Neut % (Auto) 81.7 % (16.0-70.0); Platelet Count 248 th/mm3 (150-450); Red Blood Count 3.51 mil/mm3 (4.00-5.30); Red Cell Distribution Width 19.9 % (11.6-17.2); White Blood Count 10.2 th/mm3 (4.0-11.0)
[2017-12-16 07:46] LABS: Albumin 3.1 g/dL (3.4-5.0); Anion Gap 7 meq/L (5-15); Aspartate Aminotransferase 12 U/L (15-37); Blood Urea Nitrogen 14 mg/dL (7-18); Calcium 8.1 mg/dL (8.5-10.1); Carbon Dioxide 30.5 meq/L (21.0-32.0); Chloride 102 meq/L (98-107); Glomerular Filtration Rate 52 mL/min (>89); Glucose,Random 95 mg/dL (74-106); Potassium 3.2 meq/L (3.5-5.1); Sodium 139 meq/L (136-145)
[2017-12-16 07:48] LABS: Alanine Aminotransferase 22 U/L (10-53); Alkaline Phosphatase 62 U/L (45-117); Phosphorus 3.2 mg/dL (2.5-4.9); Total Protein 7.3 g/dL (6.4-8.2)
[2017-12-16] MEDS: Lactobacillus Acidophilus/L. Spores Tablet PO SCH ×3 (08:21→18:15)
[2017-12-16] MEDS: Metoprolol Tartrate 50 MG Tablet PO SCH ×2 (08:21→20:00)
[2017-12-16] MEDS: amLODIPine 5 MG Tablet PO SCH (08:21)
[2017-12-16] MEDS: Famotidine 20 MG Tablet PO SCH ×2 (08:21→20:00)
[2017-12-16] MEDS: hydrALAZINE 25 MG Tablet PO SCH ×3 (08:21→18:15)
[2017-12-16] MEDS: Heparin - SQ 10,000 UNITS/ML Vial SQ SCH ×2 (08:26→20:01)
[2017-12-16] MEDS: Potassium Chlor 20 mEq Premix 20 MEQ/100 ML PIGGYBACK IV.SIG PRN ×4 (09:27→20:01)
--- NOTE | 2017-12-16 10:50 | P.PNCC ---
Subjective Subjective Remarks/Hospital Course: 32-year-old lady with history of severe hypertension, diagnosed approximately 2 years ago, cardiomyopathy with reduced ejection fraction (on echo done in March 2017, 30-35%), and asthma, with multiple admissions with hypertensive urgency and pulmonary edema now presents to ED complaining of abdominal pain, nausea and vomiting intermittently for approximately 1 week. Over the last few months patient noticed that she gained approximately 20 pounds. Over the last few days patient also noticed lower extremity swelling associated with worsening shortness of breath and initially dry now productive cough and some chest tightness. She denies palpitations, headache, diarrhea, fever or chills. No sick contacts at home. Of note, she was last admitted in March 2017 for hypertensive urgency. Outpatient she was followed by Dr. Swenson. She was also seen her primary care physician and due to improved BP control as outpatient her metoprolol was decreased to 25 twice daily. On ED arrival, patient was found to be severely hypertensive with systolic blood pressure in the 230s-40s. Chest x-ray done in ER showed pulmonary edema. Patient was given Lasix 60 mg IV, potassium 40 mEq and patient was started on a nitro drip CCM was consulted for ICU admission. Patient was seen in ED, she is awake, calm , in good spirits. States that she feels better and her shortness of breath is improved. is present at bedside. 12/15: No events over the night. Blood pressure better controlled, with systolic around 170s-180, on nitroglycerin at 165. Patient feels better, shortness of breath is improved, denies any chest tightness. No headache. Subjective: 12/16: No events over the night. Patient remains on nitroglycerin infusion at 185 mics. Blood pressure is better controlled. Patient feels fine, denies any headache, nausea or vomiting blurry vision, chest pain or shortness of breath. She feels like she is getting a cold. ROS - denies fever, chills, weakness, dizziness, no headache, no blurry vision, no double vision, no localized weakness, no CP, palpitations, no dyspnea, cough or wheezes, denies abdominal pain, but no nausea, no vomiting, denies diarrhea, no dysuria, + urinary frequency Objective Vital Signs / I&O: Vital Signs 12/15/17 11:09 12/15/17 11:12 12/15/17 11:15 Temperature Pulse Rate 108 H 101 H 100 H Respiratory Rate 36 H 32 H 30 H Blood Pressure 206/108 H 186/97 H Pulse Oximetry 92 L 98 96 12/15/17 11:30 12/15/17 11:45 12/15/17 12:00 Temperature Pulse Rate 96 H 94 H 95 H Respiratory Rate 31 H 32 H 22 Blood Pressure 199/93 H 192/92 H 185/92 H Pulse Oximetry 97 98 92 L 12/15/17 12:15 12/15/17 12:30 12/15/17 12:45 Temperature Pulse Rate 94 H 95 H 94 H Respiratory Rate 31 H 11 L 29 H Blood Pressure 195/95 H 193/96 H 178/93 H Pulse Oximetry 96 94 L 98 12/15/17 13:00 12/15/17 13:15 12/15/17 13:30 Temperature Pulse Rate 93 H 97 H 96 H Respiratory Rate 21 41 H 42 H Blood Pressure 182/91 H 185/91 H 194/92 H Pulse Oximetry 96 91 L 87 L 12/15/17 13:45 12/15/17 14:00 12/15/17 14:15 Temperature Pulse Rate 97 H 98 H 97 H Respiratory Rate 38 H 29 H 33 H Blood Pressure 193/90 H 191/88 H 183/83 H Pulse Oximetry 86 L 86 L 89 L 12/15/17 14:31 12/15/17 14:35 12/15/17 14:45 Temperature Pulse Rate 95 H 94 H 96 H Respiratory Rate 8 L 20 31 H Blood Pressure 192/87 H 200/89 H Pulse Oximetry 93 L 96 12/15/17 14:59 12/15/17 15:00 12/15/17 15:15 Temperature Pulse Rate 101 H 99 H 93 H Respiratory Rate 31 H 37 H 30 H Blood Pressure 186/91 H 183/89 H 167/91 H Pulse Oximetry 92 L 95 95 12/15/17 15:30 12/15/17 15:45 12/15/17 16:00 Temperature Pulse Rate 93 H 93 H 94 H Respiratory Rate 34 H 40 H 20 Blood Pressure 174/92 H 166/87 H 176/95 H Pulse Oximetry 100 100 96 12/15/17 16:15 12/15/17 16:30 12/15/17 16:45 Temperature Pulse Rate 93 H 95 H 97 H Respiratory Rate 46 H 32 H 18 Blood Pressure 165/90 H 164/87 H 174/90 H Pulse Oximetry 94 L 93 L 89 L 12/15/17 17:00 12/15/17 17:19 12/15/17 17:30 Temperature Pulse Rate 97 H 101 H 96 H Respiratory Rate 22 0 L 21 Blood Pressure 177/96 H 169/95 H 167/97 H Pulse Oximetry 90 L 90 L 94 L 12/15/17 17:45 12/15/17 18:00 12/15/17 20:00 Temperature 100.7 F H Pulse Rate 96 H 97 H 101 H Respiratory Rate 21 28 H 38 H Blood Pressure 165/89 H 176/94 H 172/86 H Pulse Oximetry 91 L 93 L 95 12/16/17 00:00 12/16/17 04:00 12/16/17 08:29 Temperature 100.9 F H 100.5 F H Pulse Rate 87 90 Respiratory Rate 21 16 Blood Pressure 174/91 H 170/99 H Pulse Oximetry 100 91 L 97 12/16/17 09:40 Temperature Pulse Rate 73 Respiratory Rate 25 H Blood Pressure Pulse Oximetry Intake & Output 12/15/17 12/16/17 12/16/17 18:59 06:59 18:59 Intake Total 800 / 800 800 / 800 250 / 250 Balance 800 / 800 800 / 800 250 / 250 Intake: IV 800 / 800 800 / 800 250 / 250 Nitroglycerin Drip Premix 50 mg 500 / 500 500 / 500 250 / 250 In 250 ml @ Per Protocol IV. CONT TITRATE PRN Rx#:[id number] KCl 20 mEq Premix Inj 20 meq In 200 / 200 300 / 300 100 ml @ 50 mls/hr IV.SIG Q2H PRN Rx#:[id number] Rocephin Inj 1,000 MG In NS Inj 100 / 100 100 ML @ 200 mls/hr IV.SIG Q24H MANUEL Rx#:[id number] Other: # Voids 6 2 Date of Last Bowel Movement 12/14/17 12/14/17 Result Diagrams: 12/16/17 06:52 12/16/17 06:52 Objective Remarks: General -young lady, morbidly obese, awake, in no distress HEENT - pupils equal, and reactive, sclerae anicteric, neck supple without rigidity, unable to appreciate neck vein distention due to body habitus, no carotid bruit, moist mucous membranes, no thrush CV - regular S1 and S2, distant, no murmurs appreciated Chest -clear bilateral, no wheezes Abdomen - soft, non-tender, obese, BS present, no hepatomegaly, no splenomegaly Skin - no rashes, no cyanosis Extremities - warm, 1+ edema -significantly improved, + peripheral pulses, no clubbing Neuro -awake, alert, oriented 3, motor 5/5 overall extremities Assessment and Plan - Assessment and Plan Plan: 1. Hypertensive emergency -improved, BP better controlled on nitro drip 2. Acute pulmonary edema, acute exacerbation of systolic CHF -symptoms improved , LE edema improved as well 3. YOLY -creatinine is trending down 4. Hypokalemia -repleting 5. Cardiomyopathy with reduced ejection fraction 30 -35% 6. Rule out ACS 1. We will attempt to taper nitro drip 2. Continue aspirin 3. Continue hydralazine (increased to 100 3 times daily) and isosorbide dinitrate 4. Continue metoprolol 50 twice daily 5. Echocardiogram still pending 6. Patient will need an ERON or an ARB. Hopefully we can start tomorrow 7. Replete potassium 8. Re-dose Lasix 40 IV daily 9. Cardiac diet 10. GI and DVT prophylaxis No family present at bedside. I discussed the plan of care in detail with patient. Patient comes off nitro drip we will transition care to the hospitalist service.
[2017-12-16] MEDS: Acetaminophen 500 MG Tablet PO PRN (16:24)
--- NOTE | 2017-12-16 16:42 | US ---
EXAM DATE: 12/16/2017 4:33 PM EDT AGE/SEX: 32 years / Female INDICATIONS: Bilateral leg swelling. CLINICAL DATA: This is the patient's initial encounter. Patient reports that signs and symptoms have been present for 1 week and indicates a pain score of 3/10. MEDICAL/SURGICAL HISTORY: Hypertension. Asthma. Cardiomyopathy. Congestive heart failure. . COMPARISON: [facility] – [place] LEG RIGHT VENOUS DOPPLER, 04/16/2017. . TECHNIQUE: Venous ultrasound of both lower extremities was performed from the inguinal ligament to t he proximal calf. Real-time, color Doppler and spectral tracing, compression and augmentation techni ques were used. FINDINGS: Right Leg: Normal compression of the deep venous system from the inguinal region to the proximal sylvia f. No echogenic clot is seen. Normal response of the venous system to augmentation and respiration. Left Leg: Normal compression of the deep venous system from the inguinal region to the proximal calf . No echogenic clot is seen. Normal response of the venous system to augmentation and respiration. Other: None. CONCLUSION: 1. No evidence of DVT. No significant change compared to the prior exam. Electronically signed by: Zander Perry MD 12/16/2017 4:40 PM EDT
[2017-12-17] MEDS: Chlorhexidine Gluconate 2% 1 Pack (2 Cloths) TOPICAL SCH (05:44)
[2017-12-17 07:14] LABS: Albumin 3.1 g/dL (3.4-5.0); Anion Gap 8 meq/L (5-15); Aspartate Aminotransferase 20 U/L (15-37); Blood Urea Nitrogen 14 mg/dL (7-18); Calcium 8.2 mg/dL (8.5-10.1); Carbon Dioxide 28.6 meq/L (21.0-32.0); Chloride 102 meq/L (98-107); Glomerular Filtration Rate 54 mL/min (>89); Glucose,Random 96 mg/dL (74-106); Potassium 3.3 meq/L (3.5-5.1); Sodium 139 meq/L (136-145)
[2017-12-17 07:15] LABS: Phosphorus 3.1 mg/dL (2.5-4.9)
[2017-12-17 07:18] LABS: Alanine Aminotransferase 26 U/L (10-53); Alkaline Phosphatase 65 U/L (45-117); Total Protein 7.4 g/dL (6.4-8.2)
[2017-12-17 07:27] LABS: Baso % (Auto) 0.4 % (0.0-2.0); Eos # (Auto) 0.2 th/mm3 (0.0-0.4); Eos % (Auto) 1.8 % (0.0-4.0); Hematocrit 26.8 % (35.0-46.0); Hemoglobin 8.7 gm/dL (11.6-15.3); Lymph # (Auto) 0.9 th/mm3 (1.0-4.8); Lymph % (Auto) 10.5 % (9.0-44.0); Mean Corpuscular HGB Conc 32.4 % (32.0-36.0); Mean Corpuscular Hemoglobin 24.3 pg (27.0-34.0); Mean Corpuscular Volume 74.8 fL (80.0-100.0); Mean Platelet Volume 8.7 fL (7.0-11.0); Mono # (Auto) 0.4 th/mm3 (0.0-0.9); Mono % (Auto) 4.7 % (0.0-8.0); Neut # (Auto) 7.4 th/mm3 (1.8-7.7); Neut % (Auto) 82.6 % (16.0-70.0); Platelet Count 253 th/mm3 (150-450); Red Blood Count 3.59 mil/mm3 (4.00-5.30); Red Cell Distribution Width 20.6 % (11.6-17.2)
[2017-12-17] MEDS: hydrALAZINE 25 MG Tablet PO SCH ×3 (08:14→17:28)
[2017-12-17] MEDS: Heparin - SQ 10,000 UNITS/ML Vial SQ SCH ×2 (08:15→20:24)
[2017-12-17] MEDS: Metoprolol Tartrate 50 MG Tablet PO SCH ×2 (08:15→22:15)
[2017-12-17] MEDS: Lactobacillus Acidophilus/L. Spores Tablet PO SCH ×3 (08:15→17:28)
[2017-12-17] MEDS: amLODIPine 5 MG Tablet PO SCH ×2 (08:15→09:54)
[2017-12-17] MEDS: Famotidine 20 MG Tablet PO SCH ×2 (08:15→20:22)
--- NOTE | 2017-12-17 09:33 | P.PNCA ---
Subjective Interval history: Feeling better. Abdominal pain resolved. No CP, dyspnea, dizziness, palpitations. Mild nausea throughout the day yesterday, none now. Physical Exam Vital signs: Vital Signs 12/16/17 09:40 12/16/17 12:00 12/16/17 15:45 Temperature 99.5 F Pulse Rate 73 80 89 Respiratory Rate 25 H 29 H 38 H Blood Pressure 137/70 143/74 H Pulse Oximetry 94 L 94 L 12/16/17 16:00 12/16/17 16:15 12/16/17 16:30 Temperature 99.9 F H Pulse Rate 91 H 88 91 H Respiratory Rate 36 H 30 H 29 H Blood Pressure 141/73 H 142/74 H 164/87 H Pulse Oximetry 95 95 12/16/17 16:45 12/16/17 17:00 12/16/17 17:15 Temperature Pulse Rate 90 90 89 Respiratory Rate 20 19 22 Blood Pressure 162/85 H 163/84 H 165/83 H Pulse Oximetry 90 L 87 L 96 12/16/17 17:30 12/16/17 17:45 12/16/17 18:00 Temperature Pulse Rate 89 86 89 Respiratory Rate 13 15 1 L Blood Pressure 168/83 H 172/81 H 159/78 H Pulse Oximetry 98 96 96 12/16/17 18:15 12/16/17 18:37 12/16/17 18:45 Temperature Pulse Rate 90 92 H 91 H Respiratory Rate 23 39 H 34 H Blood Pressure 156/77 H 174/85 H 175/79 H Pulse Oximetry 100 93 L 94 L 12/16/17 19:00 12/16/17 19:15 12/16/17 19:30 Temperature Pulse Rate 91 H 95 H 96 H Respiratory Rate 29 H 26 H 29 H Blood Pressure 146/72 H 156/73 H 156/72 H Pulse Oximetry 93 L 94 L 95 12/16/17 19:45 12/16/17 20:00 12/16/17 20:15 Temperature 99.6 F Pulse Rate 97 H 98 H 96 H Respiratory Rate 40 H 42 H 10 L Blood Pressure 153/74 H 165/81 H 154/75 H Pulse Oximetry 93 L 95 95 12/16/17 20:21 12/16/17 20:30 12/16/17 20:45 Temperature Pulse Rate 96 H 93 H 93 H Respiratory Rate 16 4 L 13 Blood Pressure 155/74 H 157/76 H Pulse Oximetry 95 94 L 93 L 12/16/17 21:00 12/16/17 21:15 12/16/17 21:30 Temperature Pulse Rate 92 H 90 87 Respiratory Rate 9 L 32 H 17 Blood Pressure 155/78 H 158/79 H 165/81 H Pulse Oximetry 92 L 94 L 94 L 12/16/17 21:45 12/16/17 22:00 12/16/17 22:15 Temperature Pulse Rate 84 84 85 Respiratory Rate 13 39 H 20 Blood Pressure 163/77 H 159/73 H 135/73 Pulse Oximetry 94 L 93 L 95 12/16/17 22:30 12/16/17 22:45 12/16/17 23:00 Temperature Pulse Rate 86 85 86 Respiratory Rate 36 H 33 H 23 Blood Pressure 150/82 H 151/80 H Pulse Oximetry 96 93 L 92 L 12/16/17 23:01 12/16/17 23:15 12/16/17 23:30 Temperature Pulse Rate 87 85 86 Respiratory Rate 25 H 24 17 Blood Pressure 141/83 H 146/84 H 164/81 H Pulse Oximetry 95 93 L 91 L 12/16/17 23:45 12/16/17 23:59 12/17/17 00:00 Temperature Pulse Rate 86 86 87 Respiratory Rate 26 H 23 17 Blood Pressure 156/77 H 135/75 Pulse Oximetry 93 L 92 L 91 L 12/17/17 01:00 12/17/17 02:00 12/17/17 03:00 Temperature Pulse Rate 87 86 86 Respiratory Rate 1 L 14 21 Blood Pressure 155/85 H 161/89 H 160/72 H Pulse Oximetry 100 99 100 12/17/17 04:00 Temperature 99.9 F H Pulse Rate 84 Respiratory Rate 12 Blood Pressure 156/81 H Pulse Oximetry 98 Intake & Output 12/16/17 12/17/17 12/17/17 18:59 06:59 18:59 Intake Total 900 / 900 900 / 900 150 / 150 Balance 900 / 900 900 / 900 150 / 150 Weight 190 kg Intake: IV 700 / 700 300 / 300 150 / 150 Nitroglycerin Drip Premix 50 mg 500 / 500 150 / 150 In 250 ml @ Per Protocol IV. CONT TITRATE PRN Rx#:[id number] KCl 20 mEq Premix Inj 20 meq In 200 / 200 200 / 200 100 ml @ 50 mls/hr IV.SIG Q2H PRN Rx#:[id number] Rocephin Inj 1,000 MG In NS Inj 100 / 100 100 ML @ 200 mls/hr IV.SIG Q24H MANUEL Rx#:[id number] Oral 200 / 200 600 / 600 Other: # Voids 6 3 Date of Last Bowel Movement 12/16/17 12/16/17 # Bowel Movements 1 - Constitutional no acute distress - Routine Neck Exam Absent: JVD - Routine Respiratory Exam Present: CTA bilaterally - Routine Cardiovascular Exam Present: RRR, S1, S2. Absent: murmur, gallop - Routine Abdominal Exam Present: soft, normoactive bowel sounds. Absent: tenderness, organomegaly - Routine Extremities Exam Absent: cyanosis, clubbing, edema Assessment and Plan - Assessment (1) Congestive heart failure Code(s): I50.9 - Heart failure, unspecified Status: Acute Plan: Overall symptomatically improved. Echo apparently done yesterday, unable to find report. BP's better, still suboptimal. Suspect her cardiomyopathy is nonischemic in etiology and due to longstanding mostly uncontrolled HTN. Rec continue beta obinna/hydralazine/nitrate, diuresis. Can change to oral furosemide, stop IV nitro. Will review echo. (2) Hypertensive emergency Code(s): I16.1 - Hypertensive emergency Status: Acute Plan: BP's overall much better, still suboptimal. Recommend continue increased metoprolol, hydralazine doses. Increase amlodipine, consider adding Catapres. - Plan Code Status: full code Discussed Condition With: patient (1) Congestive heart failure Qualifiers: Heart failure type: combined systolic and diastolic Heart failure chronicity : acute Qualified Code(s): I50.41 - Acute combined systolic (congestive) and diastolic (congestive) heart failure
[2017-12-17] MEDS: Furosemide 40 MG Tablet PO SCH (09:53)
--- NOTE | 2017-12-17 10:12 | P.PNCC ---
Subjective Subjective Remarks/Hospital Course: 32-year-old lady with history of severe hypertension, diagnosed approximately 2 years ago, cardiomyopathy with reduced ejection fraction (on echo done in March 2017, 30-35%), and asthma, with multiple admissions with hypertensive urgency and pulmonary edema now presents to ED complaining of abdominal pain, nausea and vomiting intermittently for approximately 1 week. Over the last few months patient noticed that she gained approximately 20 pounds. Over the last few days patient also noticed lower extremity swelling associated with worsening shortness of breath and initially dry now productive cough and some chest tightness. She denies palpitations, headache, diarrhea, fever or chills. No sick contacts at home. Of note, she was last admitted in March 2017 for hypertensive urgency. Outpatient she was followed by Dr. Swenson. She was also seen her primary care physician and due to improved BP control as outpatient her metoprolol was decreased to 25 twice daily. On ED arrival, patient was found to be severely hypertensive with systolic blood pressure in the 230s-40s. Chest x-ray done in ER showed pulmonary edema. Patient was given Lasix 60 mg IV, potassium 40 mEq and patient was started on a nitro drip CCM was consulted for ICU admission. Patient was seen in ED, she is awake, calm , in good spirits. States that she feels better and her shortness of breath is improved. is present at bedside. 12/15: No events over the night. Blood pressure better controlled, with systolic around 170s-180, on nitroglycerin at 165. Patient feels better, shortness of breath is improved, denies any chest tightness. No headache. 12/16: No events over the night. Patient remains on nitroglycerin infusion at 185 mics. Blood pressure is better controlled. Patient feels fine, denies any headache, nausea or vomiting blurry vision, chest pain or shortness of breath. She feels like she is getting a cold. Subjective: 12/17: No events over the night. Patient is doing well, T-max of 99.9. She is feeling much better, denies any shortness of breath, chest tightness, palpitations, abdominal pain or headache. Off nitro drip since 1 AM. Blood pressure is better controlled. Objective Vital Signs / I&O: Vital Signs 12/16/17 12:00 12/16/17 15:45 12/16/17 16:00 Temperature 99.5 F 99.9 F H Pulse Rate 80 89 91 H Respiratory Rate 29 H 38 H 36 H Blood Pressure 137/70 143/74 H 141/73 H Pulse Oximetry 94 L 94 L 95 12/16/17 16:15 12/16/17 16:30 12/16/17 16:45 Temperature Pulse Rate 88 91 H 90 Respiratory Rate 30 H 29 H 20 Blood Pressure 142/74 H 164/87 H 162/85 H Pulse Oximetry 95 90 L 12/16/17 17:00 12/16/17 17:15 12/16/17 17:30 Temperature Pulse Rate 90 89 89 Respiratory Rate 19 22 13 Blood Pressure 163/84 H 165/83 H 168/83 H Pulse Oximetry 87 L 96 98 12/16/17 17:45 12/16/17 18:00 12/16/17 18:15 Temperature Pulse Rate 86 89 90 Respiratory Rate 15 1 L 23 Blood Pressure 172/81 H 159/78 H 156/77 H Pulse Oximetry 96 96 100 12/16/17 18:37 12/16/17 18:45 12/16/17 19:00 Temperature Pulse Rate 92 H 91 H 91 H Respiratory Rate 39 H 34 H 29 H Blood Pressure 174/85 H 175/79 H 146/72 H Pulse Oximetry 93 L 94 L 93 L 12/16/17 19:15 12/16/17 19:30 12/16/17 19:45 Temperature Pulse Rate 95 H 96 H 97 H Respiratory Rate 26 H 29 H 40 H Blood Pressure 156/73 H 156/72 H 153/74 H Pulse Oximetry 94 L 95 93 L 12/16/17 20:00 12/16/17 20:15 12/16/17 20:21 Temperature 99.6 F Pulse Rate 98 H 96 H 96 H Respiratory Rate 42 H 10 L 16 Blood Pressure 165/81 H 154/75 H Pulse Oximetry 95 95 95 12/16/17 20:30 12/16/17 20:45 12/16/17 21:00 Temperature Pulse Rate 93 H 93 H 92 H Respiratory Rate 4 L 13 9 L Blood Pressure 155/74 H 157/76 H 155/78 H Pulse Oximetry 94 L 93 L 92 L 12/16/17 21:15 12/16/17 21:30 12/16/17 21:45 Temperature Pulse Rate 90 87 84 Respiratory Rate 32 H 17 13 Blood Pressure 158/79 H 165/81 H 163/77 H Pulse Oximetry 94 L 94 L 94 L 12/16/17 22:00 12/16/17 22:15 12/16/17 22:30 Temperature Pulse Rate 84 85 86 Respiratory Rate 39 H 20 36 H Blood Pressure 159/73 H 135/73 150/82 H Pulse Oximetry 93 L 95 96 12/16/17 22:45 12/16/17 23:00 12/16/17 23:01 Temperature Pulse Rate 85 86 87 Respiratory Rate 33 H 23 25 H Blood Pressure 151/80 H 141/83 H Pulse Oximetry 93 L 92 L 95 12/16/17 23:15 12/16/17 23:30 12/16/17 23:45 Temperature Pulse Rate 85 86 86 Respiratory Rate 24 17 26 H Blood Pressure 146/84 H 164/81 H 156/77 H Pulse Oximetry 93 L 91 L 93 L 12/16/17 23:59 12/17/17 00:00 12/17/17 01:00 Temperature Pulse Rate 86 87 87 Respiratory Rate 23 17 1 L Blood Pressure 135/75 155/85 H Pulse Oximetry 92 L 91 L 100 12/17/17 02:00 12/17/17 03:00 12/17/17 04:00 Temperature 99.9 F H Pulse Rate 86 86 84 Respiratory Rate 14 21 12 Blood Pressure 161/89 H 160/72 H 156/81 H Pulse Oximetry 99 100 98 12/17/17 08:00 Temperature 99 F Pulse Rate 79 Respiratory Rate 29 H Blood Pressure 161/94 H Pulse Oximetry 96 Intake & Output 12/16/17 12/17/17 12/17/17 18:59 06:59 18:59 Intake Total 900 / 900 900 / 900 150 / 150 Balance 900 / 900 900 / 900 150 / 150 Weight 190 kg Intake: IV 700 / 700 300 / 300 150 / 150 Nitroglycerin Drip Premix 50 mg 500 / 500 150 / 150 In 250 ml @ Per Protocol IV. CONT TITRATE PRN Rx#:[id number] KCl 20 mEq Premix Inj 20 meq In 200 / 200 200 / 200 100 ml @ 50 mls/hr IV.SIG Q2H PRN Rx#:[id number] Rocephin Inj 1,000 MG In NS Inj 100 / 100 100 ML @ 200 mls/hr IV.SIG Q24H MANUEL Rx#:[id number] Oral 200 / 200 600 / 600 Other: # Voids 6 3 Date of Last Bowel Movement 12/16/17 12/16/17 12/17/17 # Bowel Movements 1 Result Diagrams: 12/17/17 05:13 12/17/17 05:13 Objective Remarks: General -young lady, morbidly obese, awake, in no distress HEENT - pupils equal, reactive, sclerae anicteric, neck supple without rigidity , unable to appreciate neck vein distention due to body habitus CV - regular heart sounds, distant, no murmurs appreciated Chest -clear bilateral, no wheezes Abdomen - soft, non-tender, obese, BS present Extremities - warm, trace edema -significantly improved, + peripheral pulses, no clubbing Neuro -awake, alert, oriented 3, motor 5/5 overall extremities Assessment and Plan - Assessment and Plan Plan: 1. Hypertensive emergency -improved, BP better controlled, off nitro drip 2. Acute pulmonary edema, acute exacerbation of systolic CHF -symptoms improved , LE edema improved as well 3. YOLY -creatinine is almost back to normal 4. Hypokalemia -repleting 5. Cardiomyopathy with reduced ejection fraction 30 -35% 6. Rule out ACS 1. Continue beta-obinna, hydralazine and isosorbide dinitrate 2. ERON inhibitor was added 3. Will need spironolactone if BP allows 4. Continue aspirin 5. Echocardiogram was done but reading is still pending 6. Appreciate cardiology consult recommendations 7. Replete potassium 8. Was changed to p.o. 9. Cardiac diet 10. GI and DVT prophylaxis 11. Send a respiratory viral panel Patient does not require ICU level of care and will be transferred to the floor. We will transition care to hospitalist service. Please call back with any questions. No family present at bedside. Plan was discussed in detail with patient.
[2017-12-17] MEDS: Acetaminophen 500 MG Tablet PO PRN ×2 (12:33→23:48)
--- NOTE | 2017-12-17 13:32 | ECHRPT ---
Indication: CVA/TIA CONCLUSIONS Technically very difficult study making assessment of left ventricular function and wall motion subo ptimal. Moderately dilated left ventricle. Mild concentric left ventricular hypertrophy. The left ventricular systolic function is wcuatkfm-wf-zwcjyod reduced with an estimated ejection fra ction in the range of 35-40%. Global hypokinesis. The left atrial size is fslm-wi-fsvfxvbkym dilated. Mild mitral valve regurgitation. There is trace tricuspid valve regurgitation. The estimated pulmonary arterial pressure is 40 mmHg. BP: / HR: Rhythm: Sinus MEASUREMENTS (Male / Female) Normal Values Technical Quality:Fair 2D ECHO LV Diastolic Diameter PLAX 7.1 cm 4.2 - 5.9 / 3.9 - 5.3 cm LV Systolic Diameter PLAX 5.5 cm IVS Diastolic Thickness 1.5 cm 0.6 - 1.0 / 0.6 - 0.9 cm LVPW Diastolic Thickness 1.5 cm 0.6 - 1.0 / 0.6 - 0.9 cm LV Relative Wall Thickness 0.4 RV Internal Dim ED PLAX 3.2 cm LVOT Diameter 2.1 cm LA Systolic Diameter LX 5.6 cm 3.0 - 4.0 / 2.7 - 3.8 cm LV Ejection Fraction MOD 4C 52.9 % LV Ejection Fraction 4C AL 54.1 % M-MODE Aortic Root Diameter MM 2.6 cm LA Systolic Diameter MM 5.7 cm LA Ao Ratio MM 2.2 AV Cusp Separation MM 2.6 cm DOPPLER AV Peak Velocity 149.0 cm/s AV Peak Gradient 8.9 mmHg LVOT Peak Velocity 115.0 cm/s LVOT Peak Gradient 5.3 mmHg AV Area Cont Eq pk 2.7 cm MV Area PHT 3.9 cm Mitral E Point Velocity 136.0 cm/s Mitral A Point Velocity 82.9 cm/s Mitral E to A Ratio 1.6 LV E' Lateral Velocity 4.4 cm/s Mitral E to LV E' Lateral Ratio 31.0 LV E' Septal Velocity 4.7 cm/s Mitral E to LV E' Septal Ratio 29.1 TR Peak Velocity 316.0 cm/s TR Peak Gradient 39.9 mmHg Right Atrial Pressure 10.0 mmHg Pulmonary Artery Systolic Pressu 49.9 mmHg Right Ventricular Systolic Press 49.9 mmHg PV Peak Velocity 117.0 cm/s PV Peak Gradient 5.5 mmHg FINDINGS LEFT VENTRICLE Technically very difficult study making assessment of left ventricular function and wall motion subo ptimal. Moderately dilated left ventricle. Mild concentric left ventricular hypertrophy. The left ventricular systolic function is bykgvaem-al-gkzrojz reduced with an estimated ejection fra ction in the range of 35-40%. Global hypokinesis. RIGHT VENTRICLE Normal right ventricular size and systolic function. LEFT ATRIUM The left atrial size is yesy-se-qvnjezaufo dilated. RIGHT ATRIUM The right atrial size is normal. ATRIAL SEPTUM Normal atrial septal thickness without atrial level shunting by limited color doppler interrogation. AORTA The aortic root and proximal ascending aorta are normal in size on limited imaging. MITRAL VALVE Structurally normal mitral valve. Mild mitral valve regurgitation. AORTIC VALVE Trileaflet aortic valve. No aortic valve stenosis or regurgitation. TRICUSPID VALVE Structurally normal tricuspid valve. There is trace tricuspid valve regurgitation. The estimated pulmonary arterial pressure is 40 mmHg. PULMONARY VALVE No pulmonary valve regurgitation or stenosis. VESSELS The inferior vena cava is dilated. PERICARDIUM No pericardial effusion. Navneet Mon MD (Electronically Signed) Final Date:17 December 2017 13:31
[2017-12-18] MEDS: Chlorhexidine Gluconate 2% 1 Pack (2 Cloths) TOPICAL SCH (03:42)
[2017-12-18] MEDS: Famotidine 20 MG Tablet PO SCH ×2 (09:20→20:48)
[2017-12-18] MEDS: Furosemide 40 MG Tablet PO SCH (09:20)
[2017-12-18] MEDS: Metoprolol Tartrate 50 MG Tablet PO SCH ×2 (09:21→20:48)
[2017-12-18] MEDS: Lactobacillus Acidophilus/L. Spores Tablet PO SCH ×3 (09:21→17:51)
[2017-12-18] MEDS: hydrALAZINE 25 MG Tablet PO SCH ×3 (09:21→17:52)
[2017-12-18] MEDS: amLODIPine 5 MG Tablet PO SCH (09:22)
[2017-12-18] MEDS: Heparin - SQ 10,000 UNITS/ML Vial SQ SCH ×2 (09:22→20:48)
[2017-12-18 10:04] LABS: Albumin 3.1 g/dL (3.4-5.0); Anion Gap 10 meq/L (5-15); Aspartate Aminotransferase 28 U/L (15-37); Blood Urea Nitrogen 17 mg/dL (7-18); Calcium 8.5 mg/dL (8.5-10.1); Carbon Dioxide 25.3 meq/L (21.0-32.0); Chloride 103 meq/L (98-107); Glomerular Filtration Rate 53 mL/min (>89); Glucose,Random 76 mg/dL (74-106); Magnesium 2.2 mg/dL (1.5-2.5); Potassium 3.7 meq/L (3.5-5.1); Sodium 138 meq/L (136-145)
[2017-12-18 10:09] LABS: Alanine Aminotransferase 33 U/L (10-53); Alkaline Phosphatase 67 U/L (45-117); Phosphorus 3.2 mg/dL (2.5-4.9); Total Protein 7.3 g/dL (6.4-8.2)
--- NOTE | 2017-12-18 12:52 | XR ---
EXAM DATE: 12/18/2017 12:49 PM EDT AGE/SEX: 32 years / Female INDICATIONS: . Fever CLINICAL DATA: This is the patient's subsequent encounter. Patient reports that signs and symptoms h ave been present for 2 days and indicates a pain score of 2/10. MEDICAL/SURGICAL HISTORY: . Hypertension. Asthma. Cardiomyopathy. Congestive heart failure. . . [place] [facility] [place]. . FINDINGS: AP and lateral views of the chest demonstrate diminished lung volumes and cardiomegaly. Left basilar density. Effusion. The cardiomediastinal contours are unremarkable. Osseous structures are intact. CONCLUSION: Diminished lung volumes and left basilar density likely atelectasis. Electronically signed by: Gera Serna MD 12/18/2017 12:51 PM EDT
[2017-12-18 12:56] LABS: Baso # (Auto) 0.1 th/mm3 (0.0-0.2); Baso % (Auto) 0.9 % (0.0-2.0); Eos # (Auto) 0.3 th/mm3 (0.0-0.4); Eos % (Auto) 3.4 % (0.0-4.0); Hematocrit 31.3 % (35.0-46.0); Hemoglobin 9.8 gm/dL (11.6-15.3); Lymph # (Auto) 1.3 th/mm3 (1.0-4.8); Lymph % (Auto) 12.8 % (9.0-44.0); Mean Corpuscular HGB Conc 31.4 % (32.0-36.0); Mean Corpuscular Hemoglobin 23.7 pg (27.0-34.0); Mean Corpuscular Volume 75.7 fL (80.0-100.0); Mean Platelet Volume 8.6 fL (7.0-11.0); Mono # (Auto) 0.5 th/mm3 (0.0-0.9); Neut # (Auto) 7.6 th/mm3 (1.8-7.7); Neut % (Auto) 77.9 % (16.0-70.0); Platelet Count 350 th/mm3 (150-450); Red Blood Count 4.14 mil/mm3 (4.00-5.30); Red Cell Distribution Width 19.7 % (11.6-17.2); White Blood Count 9.8 th/mm3 (4.0-11.0)
--- NOTE | 2017-12-18 12:59 | P.PNCA ---
Subjective Interval history: No chest or abdominal pain. No dyspnea, dizziness. Physical Exam Vital signs: Vital Signs 12/17/17 13:00 12/17/17 14:03 12/17/17 14:07 Temperature Pulse Rate 77 79 Respiratory Rate 7 L 27 H Blood Pressure 138/79 142/78 H Pulse Oximetry 100 53 L 97 12/17/17 15:00 12/17/17 16:00 12/17/17 20:00 Temperature 99.3 F 97.9 F Pulse Rate 75 75 90 Respiratory Rate 33 H 29 H 23 Blood Pressure 156/84 H 165/79 H 170/68 H Pulse Oximetry 100 100 12/17/17 21:32 12/17/17 21:50 12/18/17 00:00 Temperature 99.2 F 102.3 F H Pulse Rate 92 H 92 H 81 Respiratory Rate 22 22 20 Blood Pressure 163/83 H 141/66 H Pulse Oximetry 96 96 96 12/18/17 04:00 12/18/17 08:00 12/18/17 09:04 Temperature 100.7 F H 98.8 F Pulse Rate 81 81 Respiratory Rate 22 20 Blood Pressure 120/56 L 145/75 H Pulse Oximetry 94 L 96 96 Intake & Output 12/17/17 12/18/17 12/18/17 18:59 06:59 18:59 Intake Total 900 / 900 Balance 900 / 900 Weight 189.6 kg Intake: IV 150 / 150 Nitroglycerin Drip Premix 50 mg 150 / 150 In 250 ml @ Per Protocol IV. CONT TITRATE PRN Rx#:[id number] Oral 750 / 750 Other: # Voids 5 Date of Last Bowel Movement 12/17/17 12/17/17 # Bowel Movements 3 - Constitutional no acute distress - Routine Neck Exam Absent: JVD - Routine Respiratory Exam Present: CTA bilaterally - Routine Cardiovascular Exam Present: RRR, S1, S2. Absent: murmur, gallop - Routine Abdominal Exam Present: soft, normoactive bowel sounds. Absent: tenderness, organomegaly - Routine Extremities Exam Absent: cyanosis, clubbing, edema Assessment and Plan - Assessment (1) Congestive heart failure Code(s): I50.9 - Heart failure, unspecified Status: Acute Plan: Clinically doing well. EF by echo 35-40% with global hypokinesis. Suspect her cardiomyopathy is nonischemic in etiology and due to longstanding mostly uncontrolled HTN. Rec continue beta obinna/hydralazine/nitrate, diuretic. Repeat chest x-ray pending. OK for discharge from a cardiac standpoint. (2) Hypertensive emergency Code(s): I16.1 - Hypertensive emergency Status: Acute Plan: BP's overall much better. Recommend continue current multidrug regimen. Stressed importance of medical compliance. - Plan Code Status: full code Discussed Condition With: patient (1) Congestive heart failure Qualifiers: Heart failure type: combined systolic and diastolic Heart failure chronicity : acute Qualified Code(s): I50.41 - Acute combined systolic (congestive) and diastolic (congestive) heart failure
--- NOTE | 2017-12-18 13:11 | P.PN ---
Subjective Interval history: Nursing denies any deterioration since last night. Patient herself says she felt subjective fever last night. Says shortness of breath is better but overall still feels "bad". Reports having sputum production Physical Exam Vital signs: Vital Signs 12/17/17 14:03 12/17/17 14:07 12/17/17 15:00 Temperature Pulse Rate 79 75 Respiratory Rate 27 H 33 H Blood Pressure 142/78 H 156/84 H Pulse Oximetry 53 L 97 100 12/17/17 16:00 12/17/17 20:00 12/17/17 21:32 Temperature 99.3 F 97.9 F 99.2 F Pulse Rate 75 90 92 H Respiratory Rate 29 H 23 22 Blood Pressure 165/79 H 170/68 H 163/83 H Pulse Oximetry 100 96 12/17/17 21:50 12/18/17 00:00 12/18/17 04:00 Temperature 102.3 F H 100.7 F H Pulse Rate 92 H 81 81 Respiratory Rate 22 20 22 Blood Pressure 141/66 H 120/56 L Pulse Oximetry 96 96 94 L 12/18/17 08:00 12/18/17 09:04 Temperature 98.8 F Pulse Rate 81 Respiratory Rate 20 Blood Pressure 145/75 H Pulse Oximetry 96 96 Intake & Output 12/17/17 12/18/17 12/18/17 18:59 06:59 18:59 Intake Total 900 / 900 Balance 900 / 900 Weight 189.6 kg Intake: IV 150 / 150 Nitroglycerin Drip Premix 50 mg 150 / 150 In 250 ml @ Per Protocol IV. CONT TITRATE PRN Rx#:[id number] Oral 750 / 750 Other: # Voids 5 Date of Last Bowel Movement 12/17/17 12/17/17 # Bowel Movements 3 Narrative: Possible crackles in the right base otherwise clear lung mckeon bilaterally, unlabored breathing No lower extremity edema Results - Labs CBC & Chem 7: 12/19/17 05:51 12/20/17 03:24 Laboratory Results - last 24 hr 12/17/17 12/18/17 12/18/17 08:25 08:25 12:20 WBC 9.8 RBC 4.14 Hgb 9.8 L Hct 31.3 L MCV 75.7 L MCH 23.7 L MCHC 31.4 L RDW 19.7 H Plt Count 350 D MPV 8.6 Neut % (Auto) 77.9 H Lymph % (Auto) 12.8 [place] % (Auto) 5.0 Eos % (Auto) 3.4 Baso % (Auto) 0.9 Neut # (Auto) 7.6 Lymph # (Auto) 1.3 [place] # (Auto) 0.5 Eos # (Auto) 0.3 Baso # (Auto) 0.1 WBC Differential . Differential Comment Auto diff final Sodium 138 Potassium 3.7 Chloride 103 Carbon Dioxide 25.3 Anion Gap 10 BUN 17 Creatinine 1.41 H Estimated GFR 53 L Random Glucose 76 Calcium 8.5 Phosphorus 3.2 Magnesium 2.2 Total Bilirubin 0.6 AST 28 ALT 33 Alkaline Phosphatase 67 Total Protein 7.3 Albumin 3.1 L Adenovirus (PCR) Not detected Bordetella holmesii PCR Not detected B. pertussis DNA (PCR) Not detected B. paraper/bronch (PCR) Not detected Human Metapneumovir PCR Not detected Influenza A (RT-PCR) Not detected Influenza A (H1) PCR Not detected Influenza A (H3) PCR Not detected Influenza B (RT-PCR) Not detected Parainfluenza 1 (PCR) Not detected Parainfluenza 2 (PCR) Not detected Parainfluenza 3 (PCR) Not detected Parainfluenza 4 (PCR) Not detected RSV Type A (PCR) Not detected RSV Type B (PCR) Not detected Rhinovirus (PCR) Detected H - Imaging Impressions Chest X-Ray 12/18/17 00:00 CONCLUSION: Diminished lung volumes and left basilar density likely atelectasis. Assessment and Plan - Plan 32-year-old black female admitted originally for shortness of breath and hypertensive emergency with pulmonary edema. Initially was in the ICU now is doing clinically stable on the floor. Started spiking fevers. Acute systolic CHF exacerbation Hypertensive emergency -Emergency element resolved, continue with oral antihypertensives at this time -Continue beta-obinna, hydralazine and isosorbide dinitrate -ERON inhibitor Will need spironolactone if BP allows Fever -Ordering CBC, blood cultures, chest x-ray, possible respiratory source -We will consider starting antibiotics YOLY -creatinine is almost back to normal
[2017-12-18] MEDS: Acetaminophen 500 MG Tablet PO PRN (16:44)
[2017-12-19] MEDS: Chlorhexidine Gluconate 2% 1 Pack (2 Cloths) TOPICAL SCH (04:50)
[2017-12-19 06:42] LABS: Baso % (Auto) 0.7 % (0.0-2.0); Eos # (Auto) 0.3 th/mm3 (0.0-0.4); Eos % (Auto) 4.5 % (0.0-4.0); Hematocrit 29.5 % (35.0-46.0); Hemoglobin 9.4 gm/dL (11.6-15.3); Lymph % (Auto) 15.3 % (9.0-44.0); Mean Corpuscular HGB Conc 31.7 % (32.0-36.0); Mean Corpuscular Hemoglobin 23.7 pg (27.0-34.0); Mean Corpuscular Volume 74.9 fL (80.0-100.0); Mean Platelet Volume 8.5 fL (7.0-11.0); Mono # (Auto) 0.4 th/mm3 (0.0-0.9); Mono % (Auto) 6.4 % (0.0-8.0); Neut # (Auto) 4.9 th/mm3 (1.8-7.7); Neut % (Auto) 73.1 % (16.0-70.0); Platelet Count 302 th/mm3 (150-450); Red Blood Count 3.94 mil/mm3 (4.00-5.30); Red Cell Distribution Width 20.5 % (11.6-17.2); White Blood Count 6.7 th/mm3 (4.0-11.0)
[2017-12-19 06:58] LABS: Albumin 3.2 g/dL (3.4-5.0); Anion Gap 11 meq/L (5-15); Aspartate Aminotransferase 25 U/L (15-37); Blood Urea Nitrogen 18 mg/dL (7-18); Calcium 8.5 mg/dL (8.5-10.1); Carbon Dioxide 27.1 meq/L (21.0-32.0); Chloride 102 meq/L (98-107); Glomerular Filtration Rate 55 mL/min (>89); Glucose,Random 89 mg/dL (74-106); Magnesium 2.2 mg/dL (1.5-2.5); Potassium 3.2 meq/L (3.5-5.1); Sodium 140 meq/L (136-145)
[2017-12-19 07:00] LABS: Alanine Aminotransferase 34 U/L (10-53); Phosphorus 3.7 mg/dL (2.5-4.9)
[2017-12-19 07:02] LABS: Alkaline Phosphatase 67 U/L (45-117); Total Protein 7.5 g/dL (6.4-8.2)
[2017-12-19] MEDS: Metoprolol Tartrate 50 MG Tablet PO SCH (08:25)
[2017-12-19] MEDS: Famotidine 20 MG Tablet PO SCH ×2 (08:25→21:06)
[2017-12-19] MEDS: Furosemide 40 MG Tablet PO SCH (08:25)
[2017-12-19] MEDS: Lactobacillus Acidophilus/L. Spores Tablet PO SCH ×3 (08:25→17:45)
[2017-12-19] MEDS: Heparin - SQ 10,000 UNITS/ML Vial SQ SCH ×2 (08:26→21:05)
[2017-12-19] MEDS: amLODIPine 5 MG Tablet PO SCH (08:26)
[2017-12-19] MEDS: hydrALAZINE 25 MG Tablet PO SCH ×3 (08:27→17:46)
[2017-12-19] MEDS ORDERED: Potassium Chloride 25 MEQ Effervescent Tablet PO ONE (09:00)
[2017-12-19] MEDS ORDERED: Spironolactone 25 MG Tablet PO SCH (13:30)
--- NOTE | 2017-12-19 13:47 | P.PN ---
Subjective Interval history: follow up for uncontrolled BP, sob: feeling a little better, c/o headache frontal constant, believes it her medications as she didn't have before. No cp, no sob, BP still elevated up to 190s, no fever, no chills, no cough, no sputum. Physical Exam Vital signs: Vital Signs 12/18/17 13:31 12/18/17 16:00 12/18/17 20:00 Temperature 98.2 F 97.8 F 98.5 F Pulse Rate 77 82 Respiratory Rate 20 20 Blood Pressure 133/71 162/85 H Pulse Oximetry 95 99 12/18/17 22:00 12/18/17 23:28 12/19/17 00:00 Temperature 98 F Pulse Rate 90 72 67 Respiratory Rate 20 Blood Pressure 167/84 H Pulse Oximetry 97 12/19/17 04:00 12/19/17 04:07 12/19/17 05:44 Temperature 98.9 F Pulse Rate 71 Respiratory Rate 20 Blood Pressure 186/102 H 208/99 H 182/95 H Pulse Oximetry 94 L 12/19/17 08:00 12/19/17 10:47 Temperature 98.2 F Pulse Rate 76 Respiratory Rate 16 Blood Pressure 190/95 H Pulse Oximetry 92 L 92 L Intake & Output 12/18/17 12/19/17 12/19/17 18:59 06:59 18:59 Intake Total 360 / 360 Balance 360 / 360 Weight 188.7 kg Intake: Oral 360 / 360 Other: # Voids 3 2 Date of Last Bowel Movement 12/17/17 Narrative: GENERAL: Obese female, no apparent distress. SKIN: Warm and dry. HEAD: Atraumatic. Normocephalic. EYES: Pupils equal and round. No scleral icterus. No injection or drainage. ENT: No nasal bleeding or discharge. Mucous membranes pink and moist. NECK: Trachea midline. No JVD. CARDIOVASCULAR: Regular rate and rhythm. Soft murmur. RESPIRATORY: Essentially clear, slightly diminished at bases. GASTROINTESTINAL: Abdomen soft, non-tender, nondistended. Hepatic and splenic margins not palpable. MUSCULOSKELETAL: Extremities without clubbing, cyanosis, or edema. No obvious deformities. NEUROLOGICAL: Awake and alert and oriented x 3. No obvious cranial nerve deficits. Motor grossly within normal limits. Five out of 5 muscle strength in the arms and legs. Normal speech. PSYCHIATRIC: Appropriate mood and affect; insight and judgment normal. Results - Labs CBC & Chem 7: 12/19/17 05:51 12/19/17 05:22 Laboratory Results - last 24 hr 12/19/17 12/19/17 05:22 05:51 WBC 6.7 RBC 3.94 L Hgb 9.4 L Hct 29.5 L MCV 74.9 L MCH 23.7 L MCHC 31.7 L RDW 20.5 H Plt Count 302 MPV 8.5 Neut % (Auto) 73.1 H Lymph % (Auto) 15.3 [place] % (Auto) 6.4 Eos % (Auto) 4.5 H Baso % (Auto) 0.7 Neut # (Auto) 4.9 Lymph # (Auto) 1.0 [place] # (Auto) 0.4 Eos # (Auto) 0.3 Baso # (Auto) 0.0 WBC Differential . Differential Comment Auto diff final Sodium 140 Potassium 3.2 L Chloride 102 Carbon Dioxide 27.1 Anion Gap 11 BUN 18 Creatinine 1.36 H Estimated GFR 55 L Random Glucose 89 Calcium 8.5 Phosphorus 3.7 Magnesium 2.2 Total Bilirubin 0.3 AST 25 ALT 34 Alkaline Phosphatase 67 Total Protein 7.5 Albumin 3.2 L Microbiology 12/18/17 16:35 Sputum - Expectorated Sputum Gram Stain - Final 12/18/17 16:35 Sputum - Expectorated Sputum Sputum Culture - Preliminary Heavy growth normal respiratory javad at 24 hours Assessment and Plan - Assessment (1) Congestive heart failure Code(s): I50.9 - Heart failure, unspecified Status: Acute (2) Hypertensive emergency Code(s): I16.1 - Hypertensive emergency Status: Acute (3) Cardiomyopathy Code(s): I42.9 - Cardiomyopathy, unspecified Status: Chronic (4) Obesity Code(s): E66.9 - Obesity, unspecified Status: Acute - Plan 32-year-old black female admitted originally for shortness of breath and hypertensive emergency with pulmonary edema. Initially was in the ICU now is doing clinically stable on the floor. Started spiking fevers. Acute systolic CHF exacerbation Hypertensive emergency Non ischemic cardiomyopathy, likely sec to HTN -Emergency element resolved, continue with oral antihypertensives at this time: on Norvac, Lopressor, Hydralazine, Enalapril, Lasix -appreciate card input, ok to dc -Echo done, EF 35-40% -pt. refusing Imdur, believes it's causing headache. -will start Aldactone 25 mg po daily, K is 3.2 -BP still not optimally controlled, will add Vasotec PRN Hypokalemia -replace K -follow bmp in am Fever afebrile x 24 hours, no cough, no sputum -BC negative UTD -CXR no infiltrates, atelectasis -Afebrile, cultures negative, will monitor off antibiotics at this time. Obesity states she has gained weight, as she is not active. Was in a sport league -discussed portion control, diet-low fat, low sodium, inc. activity after she is cleared by her v belt skiver. YOLY -creatinine is almost back to normal -monitor creat. BP not optimally controlled, will adjust meds and re-eval in the am poss dc tomorrow if bp better. (1) Congestive heart failure Qualifiers: Heart failure type: combined systolic and diastolic Heart failure chronicity : acute Qualified Code(s): I50.41 - Acute combined systolic (congestive) and diastolic (congestive) heart failure (3) Cardiomyopathy Qualifiers: Cardiomyopathy type: non-obstructive hypertrophic Qualified Code(s): I42.2 - Other hypertrophic cardiomyopathy (4) Obesity Qualifiers: Body mass index: BMI 70 or greater
[2017-12-20 07:13] LABS: Calcium 8.8 mg/dL (8.5-10.1); Carbon Dioxide 28.4 meq/L (21.0-32.0); Potassium 3.2 meq/L (3.5-5.1)
[2017-12-20] MEDS ORDERED: Potassium Chloride 25 MEQ Effervescent Tablet PO ONE (07:31)
[2017-12-20] MEDS ORDERED: Spironolactone 50 MG Tablet PO SCH (09:00)
[2017-12-20] MEDS: hydrALAZINE 25 MG Tablet PO SCH ×2 (09:03→13:13)
[2017-12-20] MEDS: Lactobacillus Acidophilus/L. Spores Tablet PO SCH ×2 (09:03→13:13)
[2017-12-20] MEDS: amLODIPine 5 MG Tablet PO SCH (09:04)
[2017-12-20] MEDS: Famotidine 20 MG Tablet PO SCH (09:04)
[2017-12-20] MEDS: Furosemide 40 MG Tablet PO SCH (09:05)
[2017-12-20] MEDS: Heparin - SQ 10,000 UNITS/ML Vial SQ SCH (09:05)
--- NOTE | 2017-12-20 11:04 | P.PN ---
Subjective Interval history: follow up for uncontrolled BP, sob: Blood pressure again elevated this morning, 190s. Denies any headache, indicates it resolved, she has not taken isosorbide. Some shortness of breath with activity, no chest pain. No fever. Physical Exam Vital signs: Vital Signs 12/19/17 12:00 12/19/17 16:00 12/19/17 20:00 Temperature 98.3 F 97.6 F 98.5 F Pulse Rate 75 81 84 Respiratory Rate 16 16 16 Blood Pressure 168/95 H 191/96 H 167/74 H Pulse Oximetry 98 95 95 12/20/17 00:00 12/20/17 04:00 Temperature 98.2 F 98.3 F Pulse Rate 87 90 Respiratory Rate 18 16 Blood Pressure 174/85 H 178/96 H Pulse Oximetry 97 96 Intake & Output 12/19/17 12/20/17 12/20/17 18:59 06:59 18:59 Intake Total 480 / 480 Balance 480 / 480 Weight 188 kg Intake: Oral 480 / 480 Other: # Voids 3 Narrative: GENERAL: Obese female, no apparent distress. SKIN: Warm and dry. HEAD: Atraumatic. Normocephalic. EYES: Pupils equal and round. No scleral icterus. No injection or drainage. ENT: No nasal bleeding or discharge. Mucous membranes pink and moist. NECK: Trachea midline. No JVD. CARDIOVASCULAR: Regular rate and rhythm. Soft murmur. RESPIRATORY: Essentially clear, slightly diminished at bases. GASTROINTESTINAL: Abdomen soft, non-tender, nondistended. Hepatic and splenic margins not palpable. MUSCULOSKELETAL: Extremities without clubbing, cyanosis, or edema. No obvious deformities. NEUROLOGICAL: Awake and alert and oriented x 3. No obvious cranial nerve deficits. Motor grossly within normal limits. Five out of 5 muscle strength in the arms and legs. Normal speech. PSYCHIATRIC: Appropriate mood and affect; insight and judgment normal. Results - Labs CBC & Chem 7: 12/19/17 05:51 12/20/17 03:24 Laboratory Results - last 24 hr 12/20/17 03:24 Sodium 142 Potassium 3.2 L Chloride 102 Carbon Dioxide 28.4 Anion Gap 12 BUN 14 Creatinine 1.32 H Estimated GFR 57 L Random Glucose 74 Calcium 8.8 Microbiology 12/18/17 16:35 Sputum - Expectorated Sputum Gram Stain - Final 12/18/17 16:35 Sputum - Expectorated Sputum Sputum Culture - Preliminary Heavy growth normal respiratory javad at 24 hours Assessment and Plan - Plan 32-year-old black female admitted originally for shortness of breath and hypertensive emergency with pulmonary edema. Initially was in the ICU now is doing clinically stable on the floor. Started spiking fevers. 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 -Increase Aldactone 50 mg po daily -BP still not optimally controlled, continue Vasotec PRN Hypokalemia -replace K -follow bmp in am Fever -resolved. afebrile x 24 hours, no cough, no sputum -BC negative UTD -CXR no infiltrates, atelectasis -Afebrile, cultures negative, will monitor off antibiotics at this time. Obesity states she has gained weight, as she is not active. Was in a sport league -discussed portion control, diet-low fat, low sodium, inc. activity after she is cleared by her clinical outcomes manager. YOLY -creatinine is almost back to normal -monitor creat. BP not optimally controlled, medications have been adjusted. Will reevaluate, if better this afternoon possible discharge
--- NOTE | 2017-12-20 18:20 | P.DS ---
Date of admission: 12/14/17 16:19 Primary care physician: UNKNOWN Brief History from admission: 32-year-old lady with history of severe hypertension, diagnosed approximately 2 years ago, cardiomyopathy with reduced ejection fraction (on echo done in March 2017, 30-35%), and asthma, with multiple admissions with hypertensive urgency and pulmonary edema now presents to ED complaining of abdominal pain, nausea and vomiting intermittently for approximately 1 week. Over the last few months patient noticed that she gained approximately 20 pounds. Over the last few days patient also noticed lower extremity swelling associated with worsening shortness of breath and initially dry now productive cough and some chest tightness. She denies palpitations, headache, diarrhea, fever or chills. No sick contacts at home. Of note, she was last admitted in March 2017 for hypertensive urgency. Outpatient she was followed by Dr. Swenson. She was also seen her primary care physician and due to improved BP control as outpatient her metoprolol was decreased to 25 twice daily. On ED arrival, patient was found to be severely hypertensive with systolic blood pressure in the 230s-40s. Chest x-ray done in ER showed pulmonary edema. Patient was given Lasix 60 mg IV, potassium 40 mEq and patient was started on a nitro drip CCM was consulted for ICU admission. Patient was seen in ED, she is awake, calm , in good spirits. States that she feels better and her shortness of breath is improved. is present at bedside. DS: Diagnosis - Discharge Diagnosis (1) Congestive heart failure Status: Acute (2) Hypertensive emergency Status: Acute (3) Obesity Status: Chronic (4) Cardiomyopathy Status: Chronic (5) Hypokalemia Status: Acute DS: Medications - Discharge Medications Prescriptions: amlodipine [Norvasc] 10 mg PO DAILY 30 Days #60 tab enalapril maleate 10 mg PO BID 30 Days #60 tab furosemide 40 mg PO DAILY 30 Days #30 tab hydralazine 100 mg PO TID 30 Days #180 tab isosorbide mononitrate 30 mg PO DAILY@0700 30 Days #30 tab metoprolol succinate 50 mg PO DAILY 30 Days #30 tab spironolactone 50 mg PO DAILY 30 Days #30 tab DS: Summary Hospital Course: 32-year-old lady with history of severe hypertension, diagnosed approximately 2 years ago, cardiomyopathy with reduced ejection fraction (on echo done in March 2017, 30-35%), and asthma, with multiple admissions with hypertensive urgency and pulmonary edema now presents to ED complaining of abdominal pain, nausea and vomiting intermittently for approximately 1 week. Over the last few months patient noticed that she gained approximately 20 pounds. Over the last few days patient also noticed lower extremity swelling associated with worsening shortness of breath and initially dry now productive cough and some chest tightness. She denies palpitations, headache, diarrhea, fever or chills. No sick contacts at home. Of note, she was last admitted in March 2017 for hypertensive urgency. Outpatient she was followed by Dr. Swenson. She was also seen her primary care physician and due to improved BP control as outpatient her metoprolol was decreased to 25 twice daily. On ED arrival, patient was found to be severely hypertensive with systolic blood pressure in the 230s-40s. Chest x-ray done in ER showed pulmonary edema. Patient was given Lasix 60 mg IV, potassium 40 mEq and patient was started on a nitro drip CCM was consulted for ICU admission. Patient was put on nicardipine drip. She was eventually weaned off and started on p.o. antihypertensives. She was noted with elevated cardiac enzymes, it was thought that it was due to hypertension. She was evaluated by cardiology. An echo was repeated, EF 35-40%. Patient was put on Norvasc, hydralazine, enalapril, Lasix, spironolactone, as well as isosorbide. Her blood pressure remain poorly controlled, medications were adjusted. Her electrolytes were followed, potassium was replaced. She had a headache which she thought was due to isosorbide. He was changed to Imdur 30 once a day. Patient was also counseled on weight loss and portion control. She was also noted in acute kidney injury which improved. She developed a fever during hospitalization, no cough, no sputum. Chest x-ray showed no infiltrates only atelectasis. Blood cultures were done, they were negative. She was not started on antibiotics. She had no more fevers, culture remained negative. Patient's blood pressure improved, not optimal but they came down to 150s 160s from 200s. She had minimal shortness of breath with activity, no chest pain. Compliance was emphasized. Patient was instructed to follow up with supervisor engraving as outpatient. Patient was discharged in stable condition. - Time Spent with Patient Total time spent providing and/or coordinating discharge services: 35 minutes Less than 30 minutes - Quality: VTE Deep Vein Thrombosis/Pulmonary Embolism Present on Admission: No Exam Vital signs: Vital Signs 12/19/17 20:00 12/20/17 00:00 12/20/17 04:00 Temperature 98.5 F 98.2 F 98.3 F Pulse Rate 84 87 90 Respiratory Rate 16 18 16 Blood Pressure 167/74 H 174/85 H 178/96 H Pulse Oximetry 95 97 96 12/20/17 08:00 12/20/17 12:00 12/20/17 14:00 Temperature 99.0 F 98.1 F Pulse Rate 90 88 Respiratory Rate 18 18 Blood Pressure 128/68 174/93 H 167/92 H Pulse Oximetry 94 L 97 Intake & Output 12/19/17 12/20/17 12/20/17 18:59 06:59 18:59 Intake Total 480 / 480 Balance 480 / 480 Weight 188 kg Intake: Oral 480 / 480 Other: # Voids 3 Date of Last Bowel Movement 12/19/17 Results Procedures completed during hospitalization: none Labs on day of discharge: Labs from last 24 hours 12/20/17 03:24 Sodium 142 Potassium 3.2 L Chloride 102 Carbon Dioxide 28.4 Anion Gap 12 BUN 14 Creatinine 1.32 H Estimated GFR 57 L Random Glucose 74 Calcium 8.8 Preliminary micro results at discharge 12/18/17 23:50 Aerobic Blood Culture - Preliminary Blood - Peripheral No growth in 1 day Anaerobic Blood Culture - Preliminary No growth in 1 day 12/18/17 23:56 Aerobic Blood Culture - Preliminary Blood - Peripheral No growth in 1 day Anaerobic Blood Culture - Preliminary No growth in 1 day - Impressions ITS Impressions Venous Doppler Study 12/16/17 00:00 CONCLUSION: 1. No evidence of DVT. No significant change compared to the prior exam. Chest X-Ray 12/18/17 00:00 CONCLUSION: Diminished lung volumes and left basilar density likely atelectasis. Discharge Plan - Discharge Disposition Patient Disposition: 01 Discharge Home - Discharge Condition Condition: Stable - Discharge Order Discharge Orders: Discharge Order (Routine); Ordered 12/20/17 Ordered By: Michelle Senior - Discharge Details Anticipated Discharge Date: 12/20/17 - Physicians Team Primary Care Provider: UNKNOWN, Attending Provider: eTrry Guzman Other Providers: Akhil Swenson MD ; Navneet Mon MD
[2017-12-21] MEDS ORDERED: Isosorbide Mononitrate 30 MG ER 24HR Tablet (Imdur) PO SCH (07:00)
== END 2017-12-20 17:09 | disposition home or self-care (01) ==
LOC: NEPC 10:04 → NEDA 16:19 → HIMC 18:00 → N04 12-17 20:57
PROVIDERS: ADMIT Hospitalist; ATTEND Hospitalist